=== PATIENT | female | born 1990 | race Caucasian/White ===

== ENCOUNTER → 2019-06-24 15:36 | Outpatient (CLI) | payer BC, SELFPAY ==
[2019-06-24 14:23] VITALS: BMI 23.0
[2019-06-24 16:01] LABS: Absolute Lymphocyte Count 1.43 X10^3/uL (0.83-4.51); Absolute Neutrophil Count 5.7 X10^3/uL (2.0-7.7); Basophil# 0.01 X10^3/uL; Basophil% 0.1 % (0-1); Eosinophil# 0.07 X10^3/uL; Eosinophils% 0.9 % (0-5); Hematocrit 36.5 % (37-47); Lymphocyte # 1.43 X10^3/ul (4.0); Lymphocyte % 18.7 % (19-41); Mean Corp Hgb Conc 32.9 g/dL (32-36); Mean Corpuscular Hgb 29.1 pg (27.0-32.0); Mean Corpuscular Volume 88.4 fL (81-99); Mean Platelet Vol. 10.1 fl (6.2-12.0); Monocyte# 0.44 X10^3/uL; Monocyte% 5.8 % (0-10); NRBC Flagged by Analyzer 0 % (0-5); Neutrophil # 5.68 X10^3/uL (2.7-7.7); Neutrophil % 74.2 % (47-70); Platelet Count 206 K/mm3 (150-450); RBC Distribution Width CV 12.9 % (11.6-14.6); RBC Distribution Width SD 41.9 fl (35.1-43.9); Red Blood Count 4.13 M/mm3 (4.2-5.4); White Blood Count 7.7 K/mm3 (4.4-11.0)
[2019-06-24 17:12] LABS: Amphetamine Urine VISTA NEGATIVE (<1000 ng/mL); Barbiturate Urine VISTA NEGATIVE (< 200 ng/mL); Benzodiazepine Urine VISTA NEGATIVE (< 200 ng/mL); Cocaine Urine VISTA NEGATIVE (< 300 ng/mL); Ecstacy Urine VISTA NEGATIVE (< 500 ng/mL); Methadone Urine VISTA NEGATIVE (< 300 ng/mL); PCP Urine VISTA NEGATIVE (< 25 ng/mL); THC Urine VISTA NEGATIVE (< 50 ng/mL); Vista UDS pH Range 6
[2019-06-24 18:42] LABS: Chlamydia Trachomatis by PCR Negative (Negative); Neisserai gonorrhoeae by PCR Negative (Negative); Probe Check PASS; Sample Adequacy Control PASS; Specimen Processing Control PASS
[2019-06-25 09:05] LABS: HIV - WCH Non-Reactive (Nonreactive); Hepatitis B Surface Antigen Non-Reactive (Nonreactive); Hepatitis C Antibody Non-Reactive (Nonreactive); Rubella IgG 457.8 IU/mL
[2019-06-26 02:31] LABS: Rapid Plasmin Reagin (RPR) NONREACTIVE (NONREACTIVE)
[2019-06-27 05:46] LABS: HPV APTIMA, High Risk Negative (Negative)
== END ==
PROVIDERS: Referring Provider Obstetrics & Gynecology; Visit Provider Obstetrics & Gynecology
DX: Z34.90 Encounter for supervision of normal pregnancy, unspecified, unspecified trimester (principal); Z12.4 Encounter for screening for malignant neoplasm of cervix
CPT/HCPCS: 36415; 80307; 85025; 86592; 86703; 86762; 86803; 86850; 86900; 86901; 87086; 87088; 87186; 87340; 87491; 87591; 87624; 88175; G0145

== ENCOUNTER → 2019-06-24 16:44 | Outpatient (CLI) | payer BC, SELFPAY ==
[2019-06-24 14:23] VITALS: BMI 23.0
== END ==
PROVIDERS: Visit Provider Obstetrics & Gynecology
DX: Z12.4 Encounter for screening for malignant neoplasm of cervix (principal); Z34.90 Encounter for supervision of normal pregnancy, unspecified, unspecified trimester
CPT/HCPCS: 80307; 87086; 87491; 87591; 87624; 88175; G0145

== ENCOUNTER → 2019-08-18 | Outpatient (CLI) | payer BC, SELFPAY ==
[2019-08-18 13:29] VITALS: BMI 23.0
== END | disposition home or self-care (01) ==
LOC: LABSPEC 17:04
PROVIDERS: Referring Provider Obstetrics & Gynecology; Visit Provider Obstetrics & Gynecology
DX: O23.40 Unspecified infection of urinary tract in pregnancy, unspecified trimester (principal); Z3A.00 Weeks of gestation of pregnancy not specified
CPT/HCPCS: 87086; 87088; 87186

== ENCOUNTER 2019-09-03 01:08 | Emergency (ER) | payer BC, SELFPAY ==
[2019-08-18 13:29] VITALS: BMI 23.0
[2019-09-03 01:08] VITALS: BP 103/59; PULSE 64; RESP 16; TEMP 36.6; O2SAT 100
[2019-09-03 01:09] VITALS: BP 103/59; PULSE 64; RESP 16; TEMP 36.6; O2SAT 100; BMI 25.5
--- NOTE | 2019-09-03 01:27 | ED.DCSUM_ITS ---
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 Negative for: Vomiting - Diarrhea/Melena/Hematochezia GI Symptom: Negative for: Diarrhea, Melena, Hematochezia Associated Symptoms: Negative for: Dysuria, Frequency, Hematuria, Urgency Narrative: Patient had a kidney stone once before and had sudden onset of pain around 24 hours ago that feels the same. Nausea, no vomiting. No fevers. No urinary symptoms. Had the second urinary tract infection of this current , she is 18 weeks, around 2 weeks ago. She was placed on 1 week of cephalexin 4 times daily, and since finishing that course, she is now on prophylactic cephalexin twice daily. Past Medical History - Allergies and Home Meds Allergies/Adverse Reactions: Allergies No Known Allergies Allergy (Verified 08/18/19 13:06) Primary Care Physician: Care Physician,No Primary [Primary Care Provider] - Doctors: JACKELIN Schneider Past Medical History: None Lives: Spouse/ Significant Other Smoking Status: Former smoker Review of Systems General: Denies: Chills, Fever, Sweats Eyes: Denies: Visual changes - bilaterally, Diplopia ENT: Denies: Rhinorrhea, Sore throat Cardiovascular: Denies: Chest pain, Palpitations Respiratory: Denies: Dyspnea, Cough, Dyspnea on exertion Gastrointestinal: Reports: Abdominal pain, Nausea. Denies: Vomiting, Diarrhea, Melena, Hematochezia Genitourinary: Denies: Dysuria, Hematuria, Frequency Musculoskeletal: Reports: Back pain. Denies: Extremity Pain Skin: Denies: Rash, Wounds Neurological: Denies: Headache, Weakness, Numbness Physical Exam Vital Signs/Narrative: Vital Signs Temp Pulse Resp BP Pulse Ox 09/03/19 01:09 97.9 F 64 16 103/59 L 100 09/03/19 01:08 97.9 F 64 16 103/59 L 100 Inital Vital Signs reviewed: Yes General: Well nourished, Well developed, No Acute Distress Head: Normocephalic, Atraumatic Eyes: Perrl, EOMI ENT: Moist mucous membranes, No rhinorrhea Neck: Supple, Nontender Cardiovascular: Regular rate, Regular rhythm, No murmurs Respiratory: No distress, CTA bilaterally, Chest nontender Abdomen: Soft, Nontender, Normal bowel sounds, - - Distended consistent with gravid uterus to about the umbilicus Back: Nontender, Normal Inspection. Negative for: CVA tenderness Extremities: Nontender, No edema Skin: Normal color, No rash, No Trauma Neurological: Alert, Oriented x3, Cranial nerves II-XII grossly intact, Normal Strength, Normal Sensation, Normal Gait Psychological: Normal affect, Normal Mood Diagnostic/Tx/Re-eval Laboratory Tests 09/03/19 Range/Units 01:26 Urine Color Yellow (Yellow) Urine Clarity Clear (Clear) Urine pH 6.5 (5.0 - 8.0) Ur Specific [place] 1.010 (1.002-1.030) Urine Protein Negative (Negative) mg/dl Urine Glucose (UA) Normal (Normal) mg/dl Urine Ketones Negative (Negative) mg/dl Urine Occult Blood Negative (Negative) /ul Urine Nitrite Negative (Negative) Urine Bilirubin Negative (Negative) mg/dL Urine Urobilinogen Normal (Normal) mg/dl Ur Leukocyte Esterase Negative (Negative) /ul Urine RBC 0 SEEN (0-5) /hpf Urine WBC 0 SEEN (0-5) /hpf Ur Squamous Epith Cells 0-5 SEEN (5-10) /hpf Urine Bacteria 0 SEEN (None Seen) /hpf Urine Mucus 0 SEEN (<or=2+) /hpf - Medical Decision Making At the time of evaluation the patient is doing very well. Therefore I suggested giving her a dose of IM morphine rather than placing an IV since I do not think she is going to need blood work tonight, and also giving her a Percocet orally. They were amenable to this, this was all done at one time, her pain remained well controlled and she did not require any re-dosing of parenteral analgesics. Her urine shows no sign of infection, she is already on prophylactic antibiotics that she is advised to continue, and she is comfortable going home. She is given prescription for Percocet and 1 for Zofran as well, given follow-up instructions for urology to see as needed if it takes her more than a week or 2 and she is still having stone pain, as well as strainers and instructions for use. ED Disposition - Plan for ED Patient: Disposition: Home or Assisted Living Diagnosis: Ureteral colic Instructions: ED Renal Stone w Colic Prescriptions: Oxycodone HCl/Acetaminophen [Percocet 5/325] 1 tab PO Q4H PRN PRN 3 Days #15 tab PRN Reason: Pain Prescription Printed Ondansetron [Zofran Odt] 8 mg PO Q8H PRN PRN #12 tab PRN Reason: Nausea Prescription Printed Referrals: Care Physician,No Primary [Primary Care Provider] - Tish Daly MD [STAFF PHYSICIAN] - (1-2 weeks if still dealing with painful stone)
[2019-09-03 01:33] LABS: Bacteria 0 SEEN /hpf (None Seen); Mucous, Urine 0 SEEN /hpf (<or=2+); Red Blood Cells-Urine 0 SEEN /hpf (0-5); White Blood Cells 0 SEEN /hpf (0-5)
[2019-09-03 01:34] LABS: Color, Urine Yellow (Yellow); Glucose, Dipstick Normal (Normal); Ketone-Dipstick Negative (Negative); Leukocyte Esterase-Dipstick Negative /ul (Negative); Nitrite-Dipstick Negative (Negative); Occult Blood-Urine Negative /ul (Negative); Protein-Dipstick Negative (Negative); Urine Bilirubin Dipstick Negative (Negative); Urine Clarity Clear (Clear); Urine Urobilinogen Normal (Normal); Urine pH 6.5 (5.0 - 8.0)
[2019-09-03] MEDS: Ondansetron ODT 4 MG Tablet 8 MG PO (01:35)
[2019-09-03] MEDS: Morphine 4 MG/ML Syringe IM (01:35)
[2019-09-03] MEDS: oxyCODONE 5 MG Tablet PO (01:35)
[2019-09-03 01:39] LABS: Squamous Epithelial Cells - UA 0-5 SEEN /hpf (5-10)
[2019-09-03 02:40] VITALS: BP 102/65; PULSE 60; RESP 16; O2SAT 99
== END 2019-09-03 02:49 | disposition home or self-care (01) ==
PROVIDERS: Emergency Provider Emergency Medicine
DX: O26.832 Pregnancy related renal disease, second trimester (principal); N23 Unspecified renal colic; Z3A.00 Weeks of gestation of pregnancy not specified; Z87.891 Personal history of nicotine dependence
CPT/HCPCS: 81001; 96372; 99283

== ENCOUNTER → 2019-09-12 16:21 | Outpatient (CLI) | payer BC, SELFPAY ==
[2019-07-21 12:03] VITALS: BMI 23.0
[2019-09-03 01:09] VITALS: BMI 25.5
--- NOTE | 2019-09-12 16:23 | US_ITS ---
STUDY: SECOND AND THIRD TRIMESTER OBSTETRICAL ULTRASOUND REASON FOR EXAM: Female, 29 years old. Anatomy. LMP: 04/26/2019. TECHNIQUE: Transabdominal TECHNICAL QUALITY: Adequate. PRIOR ULTRASOUND: None. FINDINGS: There is a single intrauterine fetus. The fetus is in a cephalic presentation. There is demonstrated cardiac activity with a heart rate of 149 bpm. There is a normal amniotic fluid volume. The largest amniotic fluid pocket measures 5.1 cm. The placenta is posterior in location and is not low lying. There are Grade 0 placental changes. The cervix measures 3.3 cm in length. The bilateral adnexal regions are normal. BIOMETRY: BPD: 4.88 cm: 20 weeks, 6 days HC: 18.51 cm: 21 weeks, 0 days AC: 14.78 cm: 20 weeks, 1 days FL: 3.19 cm: 20 weeks, 0 days CI: 79 FL/BPD: 65 FL/HC: FL/AC: 22 HC/AC: 1.25 age by current US: 20 weeks, 4 days. ARMANDO by current US: 01/26/2020. Estimated weight: 333 grams, +/- 49 grams, 60 %. Age by LMP: 19 weeks, 6 days. ARMANDO by LMP: 01/31/2020. ANATOMY: Gender: Indeterminant Cranium: Normal lateral ventricles. Normal choroid plexus. Normal cerebellum. Normal cisterna magna. Normal face, nose and lips. Chest: Normal 4-chamber heart. Abdomen/Pelvis: Normal diaphragm. Normal stomach. Normal abdominal wall. Normal cord insertion. Normal 3 vessel cord. Normal kidneys. Normal bladder. Spine: Normal cervical spine. Normal thoracic spine. Normal lumbar spine. Normal sacrum. Extremities: Normal bilateral upper extremities. Normal bilateral lower extremities. US/OB Anatomy Scan IMPRESSION: 1. Live single intrauterine at 20 weeks, 4 days. ARMANDO is 01/26/2020. 2. EFW of 333 g. 3. Adequate amniotic fluid. 4. Posterior grade 1 placenta. 5. VERTEX presentation. 6. No visualized anatomic abnormality. Electronically Signed: Maurisio Hendrickson DO at 19:06 EDT Tel [phone], Service support ,
== END ==
LOC: OPUS 16:23 → US 16:29
PROVIDERS: Referring Provider Obstetrics & Gynecology; Visit Provider Obstetrics & Gynecology
DX: Z34.90 Encounter for supervision of normal pregnancy, unspecified, unspecified trimester (principal)
CPT/HCPCS: 76805

== ENCOUNTER → 2019-10-13 | Outpatient (CLI) | payer BC, SELFPAY ==
[2019-10-13 13:19] VITALS: BMI 25.5
== END | disposition home or self-care (01) ==
LOC: LABSPEC 14:42
PROVIDERS: Referring Provider Obstetrics & Gynecology; Visit Provider Obstetrics & Gynecology
DX: O23.40 Unspecified infection of urinary tract in pregnancy, unspecified trimester (principal); Z3A.00 Weeks of gestation of pregnancy not specified
CPT/HCPCS: 87077; 87086; 87088

== ENCOUNTER → 2019-11-03 11:07 | Outpatient (CLI) | payer BC, SELFPAY ==
[2019-11-03 09:37] VITALS: BMI 25.5
--- NOTE | 2019-11-03 11:04 | US_ITS ---
STUDY: ULTRASOUND BREAST - LEFT REASON FOR EXAM: Female, 29 years old. Palpable lump left breast. The patient is 27 weeks . TECHNIQUE: Axial and longitudinal images of the LEFT breast were performed with a high resolution ultrasound transducer. # OF IMAGES: 30 COMPARISON: None. FINDINGS: LEFT Breast: The palpable abnormality corresponds to a 2.6 cm x 3.5 cm x 1.9 cm complex solid nodule with cystic spaces within it. A biopsy is recommended. US/Breast Limited Unilateral IMPRESSION: The palpable abnormality corresponds to a 2.6 cm x 3.5 LIU by 1.9 cm complex solid and cystic nodule. A biopsy is recommended. ASSESSMENT CATEGORY: BIRADS Category 4: Suspicious - Biopsy Should Be Considered. A letter regarding these results will be sent to the patient by the facility within 30 days. Electronically Signed: Joel Cordova, at 14:52 EDT , Service support ,
== END ==
PROVIDERS: Referring Provider Obstetrics & Gynecology; Visit Provider Obstetrics & Gynecology
DX: N63.20 Unspecified lump in the left breast, unspecified quadrant (principal)
CPT/HCPCS: 76642

== ENCOUNTER → 2019-11-04 | Outpatient (CLI) | payer BC, SELFPAY ==
[2019-11-04 12:30] VITALS: BMI 25.5
--- NOTE | 2019-11-04 12:45 | BRBX_PTH ---
PATIENT: JEFRY OLEARY LOC: [facility] U#:[id number] AGE/SX: 29/F ROOM: RE11/04/[address]: Dr. Jj Ventura MD : 1990 BED: DIS: 11/04/2019 SPEC #: [id number] RECD: 11/04/19 12:50 STATUS: ALIZE NANCY #: [id number] LESTER: 11/04/19 12:[address]: Jj Ventura DEPT: SURGICAL PATHOLOGY RECD BY: Vince Ji ENTERED: 11/04/19 13:38 SP TYPE: BREAST BX OTHR DR: No Primary Care Phys Tissues: Left breast, NOS Procedures: Surgery Specimen Level IV HEADER OPERATION: Left breast biopsy PRE-OP DIAGNOSIS: Left breast mass TISSUE SUBMITTED: Left breast tissue MICROSCOPIC DIAGNOSIS Left breast, core biopsy: Consistent with lactating adenoma. AM:chioma 11/05/19 COMMENT Case has been reviewed in consultation with Dr. Small who concurs with the above diagnosis. IDC:SJ MICROSCOPIC DESCRIPTION Slides are reviewed. GROSS DESCRIPTION Received in fixative is one container labeled with the patient name and designated left breast. The specimen consists of multiple elongated fragments of gerardo-yellow fibroadipose tissue that in aggregate measure 2 x 1 x 0.1 cm. The entire specimen is submitted in one cassette. / TISH:chioma 11/04/19 TC:5 CPT: 46350
== END | disposition home or self-care (01) ==
LOC: LABSPEC 13:03
PROVIDERS: Referring Provider Surgery; Visit Provider Surgery
DX: N63.20 Unspecified lump in the left breast, unspecified quadrant (principal)
CPT/HCPCS: 88305

== ENCOUNTER → 2019-11-10 10:41 | Outpatient (CLI) | payer BC, SELFPAY ==
[2019-11-04 12:30] VITALS: BMI 25.5
[2019-11-10 11:06] LABS: Absolute Lymphocyte Count 1.78 X10^3/uL (0.83-4.51); Basophil# 0.02 X10^3/uL; Basophil% 0.2 % (0-1); Eosinophil# 0.12 X10^3/uL; Eosinophils% 1.4 % (0-5); Hematocrit 29.7 % (37-47); Hemoglobin 9.4 g/dL (12.0-15.0); Lymphocyte # 1.78 X10^3/ul (4.0); Mean Corp Hgb Conc 31.6 g/dL (32-36); Mean Corpuscular Hgb 29.8 pg (27.0-32.0); Mean Corpuscular Volume 94.3 fL (81-99); Mean Platelet Vol. 10.2 fl (6.2-12.0); Monocyte# 0.54 X10^3/uL; Monocyte% 6.4 % (0-10); NRBC Flagged by Analyzer 0 % (0-5); Neutrophil # 5.96 X10^3/uL (2.7-7.7); Neutrophil % 70.5 % (47-70); Platelet Count 228 K/mm3 (150-450); RBC Distribution Width CV 13.8 % (11.6-14.6); RBC Distribution Width SD 46.6 fl (35.1-43.9); Red Blood Count 3.15 M/mm3 (4.2-5.4); White Blood Count 8.5 K/mm3 (4.4-11.0)
[2019-11-10 11:16] LABS: Glucose Challenge Gest 1H 50g 71 mg/dL (70-140)
== END ==
PROVIDERS: Referring Provider Obstetrics & Gynecology; Visit Provider Obstetrics & Gynecology
DX: O23.40 Unspecified infection of urinary tract in pregnancy, unspecified trimester (principal); Z3A.00 Weeks of gestation of pregnancy not specified; Z13.1 Encounter for screening for diabetes mellitus
CPT/HCPCS: 36415; 82950; 85025; 87077; 87086; 87088; 87186

== ENCOUNTER → 2019-11-24 12:57 | Outpatient (CLI) | payer BC, SELFPAY ==
[2019-11-24 08:29] VITALS: BMI 27.6
== END | disposition home or self-care (01) ==
LOC: LABSPEC 12:58
PROVIDERS: Referring Provider Obstetrics & Gynecology; Visit Provider Obstetrics & Gynecology
CPT/HCPCS: 87086

== ENCOUNTER → 2019-12-08 12:13 | Outpatient (CLI) | payer BC, SELFPAY ==
[2019-12-08 11:48] VITALS: BMI 28.5
[2019-12-08 12:42] LABS: Absolute Lymphocyte Count 1.55 X10^3/uL (0.83-4.51); Absolute Neutrophil Count 5.6 X10^3/uL (2.0-7.7); Basophil# 0.02 X10^3/uL; Basophil% 0.3 % (0-1); Eosinophil# 0.11 X10^3/uL; Eosinophils% 1.4 % (0-5); Hemoglobin 9.8 g/dL (12.0-15.0); Lymphocyte # 1.55 X10^3/ul (4.0); Lymphocyte % 19.6 % (19-41); Mean Corp Hgb Conc 31.6 g/dL (32-36); Mean Corpuscular Hgb 29.9 pg (27.0-32.0); Mean Corpuscular Volume 94.5 fL (81-99); Monocyte# 0.57 X10^3/uL; Monocyte% 7.2 % (0-10); NRBC Flagged by Analyzer 0 % (0-5); Neutrophil # 5.62 X10^3/uL (2.7-7.7); Neutrophil % 70.9 % (47-70); Platelet Count 198 K/mm3 (150-450); RBC Distribution Width CV 13.8 % (11.6-14.6); RBC Distribution Width SD 47.4 fl (35.1-43.9); Red Blood Count 3.28 M/mm3 (4.2-5.4); White Blood Count 7.9 K/mm3 (4.4-11.0)
== END ==
PROVIDERS: Referring Provider Obstetrics & Gynecology; Visit Provider Obstetrics & Gynecology
DX: O23.40 Unspecified infection of urinary tract in pregnancy, unspecified trimester (principal); O99.019 Anemia complicating pregnancy, unspecified trimester; D64.9 Anemia, unspecified; Z3A.00 Weeks of gestation of pregnancy not specified
CPT/HCPCS: 36415; 85025; 87086; 87088

== ENCOUNTER → 2019-12-12 17:47 | Outpatient (CLI) | payer BC, SELFPAY ==
[2019-12-08 11:48] VITALS: BMI 28.5
== END ==
PROVIDERS: Referring Provider Obstetrics & Gynecology; Visit Provider Obstetrics & Gynecology
DX: U07.1 COVID-19 (principal)
CPT/HCPCS: 87635; C9803; U0003

== ENCOUNTER → 2020-01-05 14:48 | Outpatient (CLI) | payer BC, SELFPAY ==
[2019-12-08 11:48] VITALS: BMI 28.5
--- NOTE | 2020-01-05 14:59 | US_ITS ---
STUDY: SECOND AND THIRD TRIMESTER OBSTETRICAL ULTRASOUND - LIMITED REASON FOR EXAM: Female, 29 years old GROWTH LMP: Unknown. PRIOR ULTRASOUND: None. TECHNIQUE: Transabdominal TECHNICAL QUALITY: Adequate. FINDINGS: There is a single intrauterine fetus. The fetus is in a cephalic presentation. There is demonstrated cardiac activity with a heart rate of 125 bpm. There is a normal amniotic fluid volume. The largest amniotic fluid pocket measures 7.3 cm. The amniotic fluid index (MARITZA) is 18.5 cm. The placenta is fundal in location. There are Grade 3 placental changes. The cervix measures 3.6 cm cm in length. BIOMETRY: BPD: 9.0 cm: 36 weeks, 4 days HC: 32.4 cm: 36 weeks, 5 days AC: 33.0 cm: 37 weeks, 0 days FL: 7.0 cm: 36 weeks, 1 days age by current US: 36 weeks, 5 days. ARMANDO by current US: January 28, 2020. Estimated weight: 2995 grams, +/- 437 grams US/OB Limited With Biometrics IMPRESSION: A single intrauterine gestation 36 weeks 5 days with estimated due date January 28, 2020. Estimated weight 2995 g. Electronically Signed: Kodak Pickens MD at 16:10 EST , Service support ,
== END ==
PROVIDERS: Referring Provider Obstetrics & Gynecology; Visit Provider Obstetrics & Gynecology
DX: O09.90 Supervision of high risk pregnancy, unspecified, unspecified trimester (principal); O23.40 Unspecified infection of urinary tract in pregnancy, unspecified trimester; O98.513 Other viral diseases complicating pregnancy, third trimester; U07.1 COVID-19; Z3A.36 36 weeks gestation of pregnancy
CPT/HCPCS: 76816; 87081; 87086; 87088

== ENCOUNTER → 2020-01-19 | Outpatient (CLI) | payer BC, SELFPAY ==
[2020-01-19 11:45] VITALS: BMI 29.8
== END | disposition home or self-care (01) ==
LOC: LABSPEC 12:36
PROVIDERS: Referring Provider Obstetrics & Gynecology; Visit Provider Obstetrics & Gynecology
DX: Z34.90 Encounter for supervision of normal pregnancy, unspecified, unspecified trimester (principal)
CPT/HCPCS: 87086; 87088

== ENCOUNTER → 2020-01-26 10:05 | Outpatient (CLI) | payer BC, SELFPAY ==
[2020-01-12 11:42] VITALS: BMI 29.5
[2020-01-19 11:45] VITALS: BMI 29.8
== END ==
PROVIDERS: Referring Provider Obstetrics & Gynecology; Visit Provider Obstetrics & Gynecology
DX: Z34.90 Encounter for supervision of normal pregnancy, unspecified, unspecified trimester (principal)
CPT/HCPCS: 87635; C9803; U0003

== ENCOUNTER 2020-02-07 18:50 | Inpatient (IN) | payer BC, SELFPAY ==
[2020-02-02 11:38] VITALS: BMI 30.5
[2020-02-07 19:20] VITALS: BMI 30.9
[2020-02-07 19:26] VITALS: PULSE 77; O2SAT 98; O2SAT 99
[2020-02-07 19:27] VITALS: BP 116/73; PULSE 73
[2020-02-07] MEDS: Lactated Ringers 1,000 ML 50 ML IV (19:40)
--- NOTE | 2020-02-07 19:53 | HP.PCM_ITS ---
- Problem List (1) 35 weeks gestation of Status: Acute Comment: electronic covid test ordered 12/31/2019 (scheduled for 01/26/20 @ 0955) (2) Anemia affecting Status: Acute Comment: iron added CBC in 4 weeks (3) Breast lump Status: Acute Comment: BENIGN. Lump noted in left lower outer quadrant of breast. 2cm in size and mobile. Ultrasound BIRADS 4. 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 anatomy us nl at [facility]. (7) Recurrent UTI (urinary tract infection) complicating Status: Acute Qualifiers: Comment: e.coli. keflex BID prophylaxis, repeat culture done 11/23 (8) Supervision of normal Status: Acute Comment: PRR ARMANDO 01/31/20 girl Cheyenne Ritchie History and Physical Date of Admission: 02/07/20 Intake Vital Signs 02/02/20 Height 5 ft 4 in 02/02/20 Weight: 178 lb 02/02/20 BMI 30.5 02/02/20 BP 122/76 H Intake Visit Reasons: 40WK OB Chief Complaint: est ob, IOL packet Residential Collections Required: No Is patient in pain?: No Allergies No Known Allergies Allergy (Verified 02/02/20 11:38) Medications Pnv No.95/Ferrous Fum/Folic AC [ Caplet] 1 tab PO DAILY 09/03/19 [History Confirmed 02/02/20] ferrous sulfate 325 mg (65 mg iron) tablet,delayed release 325 mg PO DAILY 11/24/19 [History Confirmed 02/02/20] aspirin 81 mg chewable tablet 81 mg PO DAILY 01/19/20 [History Confirmed 02/02/20] famotidine 20 mg tablet 20 mg PO DAILY 01/19/20 [History Confirmed 02/02/20] Last Menstral Period: 04/26/19 Zika: Zika virus screening: Negative : No PFSH PFS Medical History Erythema nodosum (Acute) Recurrent UTI (Acute) Family History Grandfather Leukemia Grandmother Hypertension Social History (Updated 02/02/20 @ 12:[address] Margaret Evans MD) Smoking Status: Former smoker alcohol intake: never substance use type: does not use caffeine: Yes what type of physical activity do you participate in: none seatbelt use: always do you feel safe at home: Yes additional social history: - [place]itch[place] Patient works at [employer] Pregancy History 1 Elective abortions Hx Para Spontaneous abortions Hx # Term Pregnancies Ectopic pregnancies Hx # Pregnancies Multiple births # of living children HPI 40WK OB : Details: JEFRY OLEARY is a 29 year old who presents for routine OB visit. OB Visit ARMANDO Calculator Estimated Delivery Date Method Current WG Current Estimate 01/31/20 LMP (Certain) 40w 2d Other Estimates 01/28/20 Ultrasound #1 40w 5d Expected Delivery Route/Plan by 41 weeks Labor Preferences- CB/BF classes: declines labor support person: [facility] labor intervention preferences: open to all interventions pain management options preferred: epidural cut cord/dad catch: no - may change mind in the moment : yes PP control planned: undecided discussed possible routes of delivery and associated risks: discussed possible delivery modalities and possible indications for each including R/B/A of , FAVD, VAVD, and CS. questions answered. special requests: none Specific Issue/Plans flu vaccine: declines tdap vaccine: declined rhogam: na LARC form signed: declined movement and labor precautions reviewed. Problem list reviewed and updated with the most current plan of care details and appropriate orders placed. Relevant counseling for the gestational age provided. Continue routine care and follow up unless otherwise noted in visit notes/problem list details Initial Weight: 134 lb Date EGA Weight BP Urine Prot Glucose FHR FuHt Pres Dilation Effaced St Visit Note 07/21/19 12w 2d 134 lb (+0 oz) 112/70 Negative Negative 160 SM- no vb cramping 08/18/19 16w 2d 140 lb 6 oz (+6 lb 6 oz) 108/62 Negative 1000 g/dL 150 SM- no vb cramping. has us scheduled 09/15/19 20w 2d 145 lb (+11 lb) 124/76 Negative Negative 145 20 SM- no vb lof cramping, passed kidney stone last week doing well. 10/13/19 24w 2d 154 lb (+20 lb) 120/72 Negative Negative 145 24 SM- no vb lof good fm no regular ctx 11/03/19 27w 2d 161 lb 4 oz (+27 lb 4 oz) 100/66 Negative Negative 145 28 GP - Problem visit breast lump. 2cm mobile lump in left breast. US ordered. GP - Problem visit breast lump. 2cm mobile lump in left breast. US ordered. LARC form signed today. 11/10/19 28w 2d 161 lb (+27 lb) 108/70 155 28 GP - No contractions, LOF, VB, DFM. S/P bx by Dr. Ventura. 11/24/19 30w 2d 164 lb (+30 lb) 100/66 Negative Negative 139 39 SM- no vb lof good fm no regular ctx. repeat urine culture today- not on any antibiotics currently 12/08/19 32w 2d 166 lb (+32 lb) 102/60 130 32 GP - no LOF, VB, DFM, ctx. Discussed routes of delivery. Repeat CBC ordered for anemia. 01/05/20 36w 2d 173 lb (+39 lb) 110/72 140 35 Cephalic 0.5 SM- no vb lof good fm no regular ctx gbs done 01/12/20 37w 2d 172 lb 4 oz (+38 lb 4 oz) Negative Negative 130 37 Cephalic 0.5 GP - no LOF, VB, DFM, reg ctx. GBS negative. Discussed COVID testing. Plans to take off of work after due date. 01/19/20 38w 2d 174 lb (+40 lb) 100/78 130 38 Cephalic 0.5 SM- no vb lof good fm no regualr ctx 01/26/20 39w 2d 177 lb (+43 lb) 134/70 Negative Negative 130 39 Cephalic 1 20 -3 Sm- no vb lof good fm no regular ctx 02/02/20 40w 2d 178 lb (+44 lb) 122/76 Negative Negative 130 40 Cephalic 1 40 -3 GP - no LOF, VB, DFM, reg ctx. Scheduled IOL for 02/06 at 1900. ACOG First Trimester First Trimester: Desire for , Alcohol, Tobacco Cessation, Illicit/Recreational Drug/Substance Use, Intimate Partner Violence, Barriers to care, Unstable Housing, Communication Barriers, Environmental/Work Hazards, Anticipated Course of Care, Toxoplasmosis Precations, Use of Any medications, Sexual activity, Exercise, Dental Care, Sauna/Hot tub use, Seat Belt use, Childbirth classes/Hospital facilities, , Travel, Indications for US and Screening for Aneuploidy Diagnostics Diagnostics Diagnostics Hgb 9.8 g/dL (12.0-15.0) L 12/08/19 Hct 31.0 % (37-47) L 12/08/19 Details: HIV: Urine Culture: Sequential Screen: NIPT Screen: ROS Const Reports system reviewed and no additional complaints, except as docu Eyes Reports system reviewed and no additional complaints, except as docu ENT Reports system reviewed and no additional complaints, except as docu Card Reports system reviewed and no additional complaints, except as docu Resp Reports system reviewed and no additional complaints, except as docu GI Reports system reviewed and no additional complaints, except as docu Reports system reviewed and no additional complaints, except as docu, Denies abnormal vaginal bleeding, Denies painful urination, Denies pelvic pain, Denies vaginal discharge, Denies vaginal odor, Denies vaginal itching Musc Reports system reviewed and no additional complaints, except as docu Skin/Breast Reports system reviewed and no additional complaints, except as docu Neuro Yes system reviewed and no additional complaints, except as docu Psych Reports system reviewed and no additional complaints, except as docu Exam Const General: cooperative, healthy appearing, comfortable, no acute distress, well developed, well groomed Nutritional Appearance: average body habitus, well nourished Orientation: alert, awake, oriented x3 HENHI Head: normal to inspection, normocephalic, atraumatic Eyes Pupils: PERRL, accommodation normal Resp Effort & Inspection: normal respiratory effort, able to speak in complete sentences, symmetric chest movement Cardio Rate: regular rate GI Palpation: soft, no guarding, no masses, nontender Skin General: no rashes or lesions noted, elasticity normal, turgor normal Neuro General: alert, awake, oriented x3 Cranial Nerves: CN's II-XI intact bilaterally, sense of smell intact, PERRL, accommodation normal, EOM intact bilaterally Speech: speech normal Gait: normal gait Psych Appearance: grossly normal, well kempt Mental Status: mental status grossly normal Mood: congruent mood Affect: normal affect Speech and Movement: speech and movement normal Attitude: cooperative Thought Process: normal Thought Content: normal Judgment: judgment good Results POC Urinalysis 2 Dip (Clinic) Office Urine Glucose Negative Last Edit by Jennifer Marquez on 02/02/20 11:4 3 Office Urine Protein Negative Last Edit by Jennifer Marquez on 02/02/20 11:4 3 Assessment & Plan Problems 1. Lab test negative for COVID-19 virus Z03.818 01/26/20 2. 35 weeks gestation of Z3A.35 electronic covid test ordered 12/31/2019 (scheduled for 01/26/20 @ 0955) 3. Lab test positive for detection of COVID-19 virus U07.1 Start baby ASA; growth scan on 01/04- NL 4. Anemia affecting O99.019 iron added CBC in 4 weeks 5. Breast lump N63.0 BENIGN. Lump noted in left lower outer quadrant of breast. 2cm in size and mobile. Ultrasound BIRADS 4. 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 6. Recurrent UTI (urinary tract infection) complicating O23.40 e.coli. keflex BID prophylaxis, repeat culture done 11/23 7. Z34.90 declined genetic, carrier, and ntd screening. anatomy us nl at [facility]. 8. Supervision of normal Z34.90 PRR ARMANDO 01/31/20 girl Cheyenne Ritchie UPDATE- I have seen the patient and performed any clinically relevant updates to the history and physical exam. Margaret Evans MD
[2020-02-07 20:04] LABS: Absolute Lymphocyte Count 1.56 X10^3/uL (0.83-4.51); Absolute Neutrophil Count 5.6 X10^3/uL (2.0-7.7); Basophil# 0.02 X10^3/uL; Basophil% 0.3 % (0-1); Eosinophil# 0.05 X10^3/uL; Eosinophils% 0.6 % (0-5); Hemoglobin 9.7 g/dL (12.0-15.0); Lymphocyte # 1.56 X10^3/ul (4.0); Lymphocyte % 19.7 % (19-41); Mean Corp Hgb Conc 32.3 g/dL (32-36); Mean Corpuscular Hgb 29.6 pg (27.0-32.0); Mean Corpuscular Volume 91.5 fL (81-99); Mean Platelet Vol. 10.6 fl (6.2-12.0); Monocyte# 0.68 X10^3/uL; Monocyte% 8.6 % (0-10); NRBC Flagged by Analyzer 0 % (0-5); Neutrophil # 5.56 X10^3/uL (2.7-7.7); Neutrophil % 70.4 % (47-70); Platelet Count 204 K/mm3 (150-450); RBC Distribution Width CV 13.9 % (11.6-14.6); RBC Distribution Width SD 46.2 fl (35.1-43.9); Red Blood Count 3.28 M/mm3 (4.2-5.4); White Blood Count 7.9 K/mm3 (4.4-11.0)
[2020-02-07 20:36] VITALS: PULSE 64; TEMP 36.8; O2SAT 97
[2020-02-07 20:38] VITALS: BP 115/72; PULSE 67
[2020-02-07] MEDS: 0.9% Normal Saline Single 100 ML IV.SOLN. INTRA-UTER (20:40)
[2020-02-07] MEDS: miSOPROStol 25 MCG TABLET PO (20:44)
[2020-02-08] VITALS (62 sets, daily range): BP systolic 100–131; BP diastolic 56–87; PULSE 62–94; TEMP 36.2–38.2; O2SAT 82–100
[2020-02-08] MEDS: Mag Hydrox/Al Hydrox/Simeth 30 ML UDC PO (01:06)
[2020-02-08] MEDS: miSOPROStol 25 MCG TABLET PO (01:28)
[2020-02-08] MEDS: Oxytocin 30 units/NS 500 ml 30 UNITS/500 ML IV.SOLN IV ×2 (05:35→19:40)
[2020-02-08] MEDS: Lactated Ringers 500 ML 999 ML IV ×2 (09:04→22:30)
[2020-02-08] MEDS: fentaNYL-bupivacaine (epidural) 100 ML BAG EPIDURAL ×3 (10:07→19:37)
[2020-02-08] MEDS: Lactated Ringers 1,000 ML 200 ML IV ×3 (10:11→19:14)
[2020-02-08] MEDS: Famotidine 20 MG Tablet PO (12:00)
[2020-02-08] MEDS: 0.9% Saline Lock 10 ML Syringe IV (18:06)
[2020-02-08] MEDS: Ondansetron 4 MG/2 ML Vial IV (18:06)
[2020-02-08] MEDS: DiphenhydrAMINE 50 MG/ML Syringe 25 MG IV (20:57)
[2020-02-09] VITALS (36 sets, daily range): BP systolic 92–120; BP diastolic 50–88; PULSE 73–99; RESP 10–17; TEMP 36.1–38.2; O2SAT 94–100
[2020-02-09] MEDS: Lactated Ringers 1,000 ML 200 ML IV ×2 (00:54→07:19)
[2020-02-09] MEDS: fentaNYL-bupivacaine (epidural) 100 ML BAG EPIDURAL ×3 (01:10→12:00)
[2020-02-09] MEDS: Lactated Ringers 500 ML 999 ML IV ×2 (06:18→10:35)
--- NOTE | 2020-02-09 07:59 | PCM.PN.BLA ---
Progress Note Patient examined at this time. Found to have made cervical change to 7/80/-1. Still has swelling of anterior lip of cervix. Cervix manually compressed to decrease swelling. Baby feels somewhat asynclitic. Baby remains category 1. Will continue position change. Patient on antibiotics for suspected III, but most recently afebrile. IUPC replaced to see if this improves contraction pattern. Discussed with patient an RN that as long as maternal and status remain reassuring, would allow 6 hours after last time making cervical change before would consider . STROKE Vital Signs/Narrative: Vital Signs Temp Pulse BP Pulse Ox 02/09/20 07:46 99.3 F H 80 109/62 99 02/09/20 06:39 92 100 02/09/20 06:38 100.2 F H 111/65 02/09/20 05:41 100.7 F H 77 113/58 L 100 02/09/20 04:46 73 106/58 L 100 02/09/20 04:21 100.6 F H
[2020-02-09] MEDS: Acetaminophen 500 MG Tablet PO (11:48)
[2020-02-09] MEDS: DiphenhydrAMINE 50 MG/ML Syringe 12.5 MG IV (12:24)
--- NOTE | 2020-02-09 17:19 | PCM.PN.BLA ---
Progress Note Patient has now been 9 cm since 10:50 AM. Cervical swelling is noted to be significantly worse to the point that cervix is now 7 cm dilated due to the degree of swelling. Discussed with patient that given that she has not made cervical change for greater than 6 hours with inadequate contractions, I recommend proceeding with a primary section at this time. The risk, benefits, indications, and alternatives to the procedure were discussed with the patient including bleeding, infection, and visceral or vascular injury. All questions were answered. Patient voices understanding and agrees to proceed. Given that maternal and status remains reassuring at this time, will allow additional time before start of procedure for anesthesia to complete an epidural on a different patient is on the unit. STROKE Vital Signs/Narrative: Vital Signs Temp Pulse Resp BP Pulse Ox 02/09/20 16:38 88 110/73 100 02/09/20 15:32 98.0 F 85 15 120/88 H 98 02/09/20 15:28 98.0 F 85 120/88 H 98 02/09/20 13:57 99.8 F H 90 100/63 98
--- NOTE | 2020-02-09 17:41 | OP.PCM_ITS ---
Problem List (1) 35 weeks gestation of Status: Acute Comment: electronic covid test ordered 12/31/2019 (scheduled for 01/26/20 @ 0955) (2) Anemia affecting Status: Acute Comment: iron added CBC in 4 weeks (3) Breast lump Status: Acute Comment: BENIGN. Lump noted in left lower outer quadrant of breast. 2cm in size and mobile. Ultrasound BIRADS 4. 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 anatomy us nl at [facility]. (7) Recurrent UTI (urinary tract infection) complicating Status: Acute Qualifiers: Comment: e.coli. keflex BID prophylaxis, repeat culture done 11/23 (8) Supervision of normal Status: Acute Comment: PRR ARMANDO 01/31/20 girl Cheyenne Ritchie Delivery Classification: BEKA Final ARMANDO: 01/31/20 Gestational age: 41 Weeks and 2 Days correction officer city or county jail: [facility] [facility] Type of Anesthesia:: Epidural Date of Procedure: 02/09/20 Pre-Operative Diagnosis: Term , arrest of dilation, suspected intrapartum intraamniotic infection Post-Operative Diagnosis: Same Indications: Patient is a 29-year-old G1, P0 at 41 weeks gestation who was admitted for induction of labor for late term. She was initially induced with Lundberg bulb and Cytotec followed by Pitocin. Her membranes were ruptured at 10:30 AM on 02/07. Once her membranes were ruptured she was 5 cm for approximately 20 hours before she made cervical change to 7 cm dilation. Cervix was noted to be significantly swollen. She did make cervical change to 9 cm dilation at 10:50 AM, but made no further cervical change at this time and her cervix was noted to continue to have significant swelling. The decision was made to proceed with a primary C-se ction for arrest of dilation. The risks, benefits, indications, and alternatives to the procedure were discussed with the patient including bleeding, infection, and visceral or vascular injury. The patient voiced understanding and agreed to proceed. Indications for : Sec. Arrest of Dilitation, Suspected chorioamnionitis (Suspected Triple I) Description of Procedure: The patient is a G1, P0 at 41 weeks gestation presented for primary for arrest of dilation. Spinal anesthesia was placed without difficulty. Lundberg catheter was placed. The patient was placed in the dorsal supine position with leftward tilt. Patient was prepped and draped in the normal sterile fashion. Pfannenstiel skin incision was made with the scalpel and carried through to the underlying layer of fascia with the scalpel. Fascia was nicked in the midline and the incision extended laterally. The rectus bellies were dissected off superiorly and inferiorly with out complication both sharply and bluntly. The peritoneum was entered digitally. The incision was stretched and a low transverse uterine incision was made with the scalpel. The head was noted to be occiput posterior and asynclitic. The infant's head was delivered atraumatically followed by the anterior and posterior shoulders without complication the rest of the infant delivered. The cord was clamped and cut and the infant was handed off to awaiting nurse. The placenta was delivered spontaneously immediately following and was noted to be intact and have a three- vessel cord. The uterus was exteriorized cleared of all clots and debris. A large extension was noted on the left side. The extension was closed in a running locked fashion with #1 monocryl and the hysterotomy was closed in a double layer closure using #1 Monocryl. Hemostasis was obtained with 0-vicryl suture. The ovaries and fallopian tubes were noted to be within normal limits. The uterus was returned to the maternal abdomen and gutters were cleared of all clots and debris. The peritoneum was closed with 3-0 Monocryl in a running fashion. Gloves were changed prior to fascial closure. Fascia was closed with 0 PDS in a running fashion. Subcutaneous tissue was copiously irrigated and the skin was closed with 3-0 Monocryl in a subcuticular fashion. Mepilex dressing was applied without complication. Patient was taken to recovery in stable condition. Based on the clinical information obtained during this encounter, combined with her history I feel that she could be a candidate for a vaginal delivery in the future if desired. Amniotic Membrane Rupture Type: Artificial Amniotic Fluid Description: Moderate meconium Placenta Disposition: Sent to Pathology Drain: Lundberg to straight drain Cord Vessel Description: 3 Vessels Infant Gender: Female Antibiotic Given: - - Clindamycin and ampicillin Pt instructed on risks of surgery: Bleeding, Anesthesia Risks, Infection, Injury to surrounding structure(s) including bowel and bladder Complications: None - Admit VTE Documentation VTE Present on Admission: No VTE Mechan Device Prophylaxis: SCD's VTE Pharm Prophylaxis ordered?: Yes Multi Select Codes - Urinary/Genital Urinary/Genital CPT Codes: [address] [facility]
--- NOTE | 2020-02-09 18:57 | DCINST_ITS ---
Discharge Diet: No Restrictions Discharge Activity: May Not Drive - for 2 weeks or while taking narcotic pain meds., May Shower, May Take a Tub Bath - in 7 days. May resume sexual activity in: 4-6 weeks Lifting Restrictions: 20 pounds Additional Activity Instructions:: Nothing in the vagina for 4-6 weeks. You may return to work/school in 6 weeks. Call your doctor if your incision/area has: Continuous Slow Oozing, Sudden Increased Bleeding, Increased Pain/ Swelling, Increased Redness, Foul Smelling Discharge Call your doctor if you observe: Fever of 101 or Higher Suture Line Care: Avoid Pulling/Pushing, Avoid Pinching/Bending Additional Instructions: If you experience any of the following, contact your healthcare provider. * Bleeding that soaks a pad every hour for 2 hours * Fever 100.4 or higher * Unrelieved incision or abdominal pain * Swelling, redness, discharge or bleeding from your incision or episiotomy site * Your incision begins to separate * Problems urinating (including inability to urinate or burning while urinating). * Visual changes * Severe headache * Flu-like symptoms * Pain or redness in one of both of your breasts * Pain, warmth, tenderness or swelling in your legs, especially the calf area * Frequent nausea and vomiting * Symptoms of depression or anxiety If you experience any of the following, call 911 or go to the nearest Emergency Room. * Chest pain * Problems breathing * Seizure activity * Partial or complete paralysis of a body part, slurred speech, weakness or drooping of the face, or a sudden inability to walk or hold your balance Allergies/Adverse Reactions: Allergies No Known Allergies Allergy (Verified 02/02/20 11:38) Medications to take at Discharge Pnv No.95/Ferrous Fum/Folic AC [ Caplet] 1 tab PO DAILY 09/03/19 ferrous sulfate 325 mg (65 mg iron) tablet,delayed release 325 mg PO DAILY 11/24/19 aspirin 81 mg chewable tablet 81 mg PO DAILY 01/19/20 famotidine 20 mg tablet 20 mg PO DAILY 01/19/20 Follow-Up: Call to make an appointment with your doctor for an incision check in 1-2 weeks. You will also need a 6 week post- follow up appointment. Test results from this visit will be discussed in further detail at your follow- up appointment, if applicable. Primary Care Physician: Care Physician,No Primary [Primary Care Provider] -
[2020-02-09] MEDS: Oxytocin 30 units/NS 500 ml 30 UNITS/500 ML IV.SOLN 167 UNITS IV (19:05)
[2020-02-09] MEDS: Acetaminophen 500 MG Tablet 1000 MG PO (22:12)
[2020-02-09] MEDS: Lactated Ringers 1,000 ML 100 ML IV (22:12)
[2020-02-10] VITALS (7 sets, daily range): BP systolic 92–109; BP diastolic 50–76; PULSE 74–95; RESP 14–20; TEMP 36.1–36.6; O2SAT 96–100
[2020-02-10] MEDS: Ketorolac 30 MG/ML Syringe IV ×4 (01:21→19:01)
[2020-02-10] MEDS: 0.9% Saline Lock 10 ML Syringe IV ×4 (01:22→19:02)
[2020-02-10] MEDS: Acetaminophen 500 MG Tablet 1000 MG PO ×4 (03:36→22:18)
[2020-02-10] MEDS: Enoxaparin 40 MG/0.4 ML Syringe SC (06:44)
[2020-02-10 06:50] LABS: Hematocrit 25.3 % (37-47); Hemoglobin 8.2 g/dL (12.0-15.0); Mean Corp Hgb Conc 32.4 g/dL (32-36); Mean Corpuscular Hgb 29.7 pg (27.0-32.0); Mean Corpuscular Volume 91.7 fL (81-99); Mean Platelet Vol. 10.1 fl (6.2-12.0); Platelet Count 164 K/mm3 (150-450); RBC Distribution Width SD 45.8 fl (35.1-43.9); Red Blood Count 2.76 M/mm3 (4.2-5.4)
--- NOTE | 2020-02-10 08:44 | PN.OBGYN_ITS ---
Patient Problems: Active and Suspected Problems (Last Reviewed 02/02/20 @ 11:38 by Jennifer Marquez) Lab test negative for COVID-19 virus (Acute) 01/26/20 35 weeks gestation of (Acute) electronic covid test ordered 12/31/2019 (scheduled for 01/26/20 @ 0955) Lab test positive for detection of COVID-19 virus (Acute) Start baby ASA; growth scan on 01/04- NL Anemia affecting (Acute) iron added CBC in 4 weeks Breast lump (Acute) BENIGN. Lump noted in left lower outer quadrant of breast. 2cm in size and mobile. Ultrasound BIRADS 4. 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 keflex BID prophylaxis, repeat culture done 11/23 (Acute) declined genetic, carrier, and ntd screening. anatomy [facility]l at [facility]. Supervision of normal (Acute) PRR ARMANDO 01/31/20 girl Cheyenne Ritchie Subjective: Patient doing well without complaints. Tolerating PO. Ambulating and voiding without difficulty. Denies chest pain, shortness of breath, calf pain/swelling, fevers, chills, lightheadedness.Concern for chorio-afebrile since delivery. Baby Cheyenne at [facility] for breathing issues, now doing well, room air. - Physical Exam Vitals/I&O's: Vital Signs Temp Pulse Resp BP Pulse Ox 97 F L 81 16 103/65 96 02/10/20 03:40 02/10/20 05:45 02/10/20 05:45 02/10/20 03:40 02/10/20 05:45 Oxygen Delivery Method Room Air Weight: 180 lb 1.883 oz Body Mass Index (BMI) 30.9 Intake and Output for Last 24 Hours 02/08/20 02/09/20 02/10/20 23:59 23:59 23:59 Intake Total 4955.86 / 4955.86 6144.05 / 6144.05 622.67 / 622.67 Output Total 1150 / 1150 1100 / 1100 1200 / 1200 Balance 3805.86 / 3805.86 5044.05 / 5044.05 -577.33 / -577.33 General: Alert, Oriented x3, Cooperative Abdomen: Soft, Non-Distended, - - FF below U. Dressing dry and intact. Minimal tenderness Laboratory Results 02/10/20 06:40: WBC 14.0 H, RBC 2.76 L, Hgb 8.2 L, Hct 25.3 L, MCV 91.7, MCH 29.7, MCHC 32.4, RDW Std Deviation 45.8 H, RDW Coeff of Amos 14.0, Plt Count 164, MPV 10.1 Current Medications Acetaminophen (Acetaminophen 500 Mg Tablet) 1,000 mg PO Q6H [facility] Last Admin: 02/10/20 03:36 Dose: 1,000 mg Documented by: Bisacodyl (Bisacodyl 10 Mg Suppository) 10 mg RECTAL UD PRN PRN Reason: If no BM Diphenhydramine HCl (Diphenhydramine 25 Mg Capsule) 25 mg PO Q6H PRN PRN PRN Reason: ITCHING Stop: 02/10/20 19:24 Enoxaparin Sodium (Enoxaparin 40 Mg/0.4 Ml Syringe) 40 mg SC DAILY [facility] Last Admin: 02/10/20 06:44 Dose: 40 mg Documented by: Ephedrine Sulfate (Ephedrine Sulfate 50 Mg/Ml Ampul) 10 mg IV Q10M PRN PRN Reason: hypotension Ephedrine Sulfate (Ephedrine Sulfate 50 Mg/Ml Ampul) 10 mg IM Q30M PRN PRN Reason: hypotension Hydrocortisone (Hydrocortisone 2.5% Crm) 1 applic TOPICAL TID PRN PRN; Protocol PRN Reason: Discomfort Ketorolac Tromethamine (Ketorolac 30 Mg/Ml Syringe) 30 mg IV Q6H [facility] Stop: 02/10/20 19:01 Last Admin: 02/10/20 06:43 Dose: 30 mg Documented by: Methylergonovine Maleate (Methylergonovine 0.2 Mg/Ml Ampul) 0.2 mg IM X1 PRN PRN Reason: Uterine Atony Nalbuphine HCl (Nalbuphine 10 Mg/Ml Ampul) 5 mg IV Q3H PRN PRN PRN Reason: ITCHING Naloxone HCl (Naloxone 0.4 Mg/Ml Syringe) 0.02 mg IV Q1M PRN PRN Reason: RR <10 and pt unresponsive Naproxen (Naproxen 250 Mg Tablet) 500 mg PO Q8H SIL Ondansetron HCl (Ondansetron 4 Mg/2 Ml Vial) 4 mg IV Q4H PRN PRN PRN Reason: Nausea Oxycodone HCl (Oxycodone 5 Mg Tablet) 5 - 10 mg PO Q4H PRN PRN PRN Reason: Pain Score 4-10 Prochlorperazine Edisylate (Prochlorperazine 10 Mg/2 Ml Vial) 10 mg IV Q6H PRN PRN PRN Reason: NAUSEA Senna/Docusate Sodium (Senna/Docusate Sodium 1 Tablet) 0 tablet PO DAILY SIL Simethicone (Simethicone 80 Mg Tablet) 80 mg PO PCHS PRN PRN Reason: Indigestion/stomach pain Sodium Chloride (0.9% Saline Lock 10 Ml Syringe) 5 - 15 ml IV UD PRN PRN Reason: SALINE FLUSH Last Admin: 02/10/20 06:44 Dose: 10 ml Documented by: Medical Necessity - Tobacco Use Smoking Status: Former smoker Assessment/Plan All Active Problems (Last Reviewed 02/02/20 @ 11:38 by Jennifer Marquez) Lab test negative for COVID-19 virus (Acute) 35 weeks gestation of (Acute) Lab test positive for detection of COVID-19 virus (Acute) Anemia affecting (Acute) Breast lump (Acute) Recurrent UTI (urinary tract infection) complicating (Acute) (Acute) Supervision of normal (Acute) s/p LTCS PPD # 1 1. routine post care 2. pumping and support given. 3. rh positive 4. rubella immune 5. Probable discharge tomorrow AM due to infection risks.
[2020-02-10] MEDS: Senna/Docusate Sodium 1 Tablet PO (09:50)
--- NOTE | 2020-02-10 17:50 | CASEMGMT ---
Social Work Assessment Labor and Delivery Unit Date of Referral: 02/10/2020 Time of Referral: 10:44 Referred By: Dr. Margaret Evans Date of Intervention: 02/10/2020 Time of Intervention: 17:50 Reason for Referral: transferred to [facility]. History obtained from: Mother of baby (MOB), Nursing staff, Chart. Household composition: MOB (Leanne Braxton) and Father of baby (Ritchie Braxton) have private home together and plan for to join them when medically stable. Patient's parent/guardian status: MOB and Father of baby (FOB) have been for 1 year. was planned and expected. MOB reports to feel safe with FOB and to have no safety concerns currently. This is first infant for both MOB and FOB. Medical History: MOB with history prior to this infant being born. MOB with at 41 weeks after being induced for two days. born on 02/09/2021 and transferred to [facility] due to respiratory issues. MOB with appropriate care. to follow with Dr. Martell in the community. Educational Status: MOB denies any issues with comprehension or understanding. 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 FOB holds a full-time job. MOB denies any financial concerns. Infant Supplies: MOB reports to have all needed infant supplies in the home including a crib and car seat etc. Childcare/Caregiver(s): MOB plans to be primary caregiver for with family for support ones MOB returns to work. Transportation: Denies any issues. Programs/Agencies Involved: No agency involvement currently. Children Services/Legal Issues: Denies any legal issues. Mental Health History: MOB denies any mental health history or concerns. This social work associate able to broach topic of depression with MOB and facilitated conversation about signs and symptoms. MOB reports to have family/FOB for support as needed and believes that MOB would reach out for help if needed. MOB denies any history of suicidal thoughts, plans, intents. Substance Use History: MOB denies any substance abuse/use. Maternal and Infant Drug Screens: No tox screens obtained. PHQ9: Did not trigger. Family/Social Stressors: Infant transferred to [facility]. MOB with appropriate affect and emotional regulation. Support Systems: MOB reports to have needed supports in the home and community. Depression and Anxiety/Shaken Baby/Safe Sleeping: This social work associate provided MOB with resources on Depression and Anxiety, Shaken Baby Help Me Grow and Safe Sleeping along with [facility] Community Resources. MOB and responding appropriately to safe sleeping and shaken baby prompts. ASSESSMENT: This social work associate met with MOB and MOB?s mother in room. Introduced self and social work associate role. MOB provided verbal permission for this social work associate to speak openly with MOB?s mother present in the room. MOB presenting with a positive outlook. MOB reports to be breast pumping and is looking forward to being able to discharge to home tomorrow to be able to go and be with . MOB denies any concerns at discharge. Unable to observe interaction with MOB and due to transfer to [facility]. Support and active listening provided. PLAN: MOB to discharge to the community. No further services indicated. Alicia COOK, GULSHAN-S
[2020-02-11 02:11] VITALS: BP 87/51; PULSE 90; RESP 16; TEMP 36.8
[2020-02-11] MEDS: Naproxen 250 MG Tablet 500 MG PO (03:37)
[2020-02-11] MEDS: Acetaminophen 500 MG Tablet 1000 MG PO (03:37)
[2020-02-11 03:39] VITALS: BP 91/48; PULSE 91
--- NOTE | 2020-02-11 06:02 | NURSING ---
Reviewed and agreed with Saul GAITAN charting.
--- NOTE | 2020-02-11 07:45 | PN.OBGYN_ITS ---
Patient Problems: Active and Suspected Problems (Last Reviewed 02/02/20 @ 11:38 by Jennifer Marquez) Lab test negative for COVID-19 virus (Acute) 01/26/20 35 weeks gestation of (Acute) electronic covid test ordered 12/31/2019 (scheduled for 01/26/20 @ 0955) Lab test positive for detection of COVID-19 virus (Acute) Start baby ASA; growth scan on 01/04- NL Anemia affecting (Acute) iron added CBC in 4 weeks Breast lump (Acute) BENIGN. Lump noted in left lower outer quadrant of breast. 2cm in size and mobile. Ultrasound BIRADS 4. 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 keflex BID prophylaxis, repeat culture done 11/23 (Acute) declined genetic, carrier, and ntd screening. anatomy us nl at [facility]. Supervision of normal (Acute) PRR ARMANDO 01/31/20 girl Cheyenne Ritchie Subjective: Patient doing well without complaints. Tolerating PO. Ambulating and voiding without difficulty. Pumping/baby at [facility] and doing welll. Denies chest pain, shortness of breath, calf pain/swelling, fevers, chills, lightheadedness. - Physical Exam Vitals/I&O's: Vital Signs Temp Pulse Resp BP Pulse Ox 98.3 F 91 16 91/48 L 99 02/11/20 02:11 02/11/20 03:39 02/11/20 02:11 02/11/20 03:39 02/10/20 12:10 Oxygen Delivery Method Room Air Weight: 180 lb 1.883 oz Body Mass Index (BMI) 30.9 Intake and Output for Last 24 Hours 02/09/20 02/10/20 02/11/20 23:59 23:59 23:59 Intake Total 6144.05 / 6144.05 622.67 / 622.67 Output Total 1100 / 1100 2500 / 2500 Balance 5044.05 / 5044.05 -1877.33 / -1877.33 General: Alert, Oriented x3 Abdomen: Soft, Non-Distended, - - FF below U. Dressing dry and intact. Appropriately tender Current Medications Acetaminophen (Acetaminophen 500 Mg Tablet) 1,000 mg PO Q6H SIL Last Admin: 02/11/20 03:37 Dose: 1,000 mg Documented by: Bisacodyl (Bisacodyl 10 Mg Suppository) 10 mg RECTAL UD PRN PRN Reason: If no BM Enoxaparin Sodium (Enoxaparin 40 Mg/0.4 Ml Syringe) 40 mg SC DAILY [facility] Last Admin: 02/10/20 06:44 Dose: 40 mg Documented by: Ephedrine Sulfate (Ephedrine Sulfate 50 Mg/Ml Ampul) 10 mg IV Q10M PRN PRN Reason: hypotension Ephedrine Sulfate (Ephedrine Sulfate 50 Mg/Ml Ampul) 10 mg IM Q30M PRN PRN Reason: hypotension Hydrocortisone (Hydrocortisone 2.5% Crm) 1 applic TOPICAL TID PRN PRN; Protocol PRN Reason: Discomfort Methylergonovine Maleate (Methylergonovine 0.2 Mg/Ml Ampul) 0.2 mg IM X1 PRN PRN Reason: Uterine Atony Nalbuphine HCl (Nalbuphine 10 Mg/Ml Ampul) 5 mg IV Q3H PRN PRN PRN Reason: ITCHING Naloxone HCl (Naloxone 0.4 Mg/Ml Syringe) 0.02 mg IV Q1M PRN PRN Reason: RR <10 and pt unresponsive Naproxen (Naproxen 250 Mg Tablet) 500 mg PO Q8H [facility] Last Admin: 02/11/20 03:37 Dose: 500 mg Documented by: Ondansetron HCl (Ondansetron 4 Mg/2 Ml Vial) 4 mg IV Q4H PRN PRN PRN Reason: Nausea Oxycodone HCl (Oxycodone 5 Mg Tablet) 5 - 10 mg PO Q4H PRN PRN PRN Reason: Pain Score 4-10 Prochlorperazine Edisylate (Prochlorperazine 10 Mg/2 Ml Vial) 10 mg IV Q6H PRN PRN PRN Reason: NAUSEA Senna/Docusate Sodium (Senna/Docusate Sodium 1 Tablet) 0 tablet PO DAILY [facility] Last Admin: 02/10/20 09:50 Dose: 1 tablet Documented by: Simethicone (Simethicone 80 Mg Tablet) 80 mg PO PCHS PRN PRN Reason: Indigestion/stomach pain Sodium Chloride (0.9% Saline Lock 10 Ml Syringe) 5 - 15 ml IV UD PRN PRN Reason: SALINE FLUSH Last Admin: 02/10/20 19:02 Dose: 10 ml Documented by: Medical Necessity - Tobacco Use Smoking Status: Former smoker Assessment/Plan All Active Problems (Last Reviewed 02/02/20 @ 11:38 by Jennifer Marquez) Lab test negative for COVID-19 virus (Acute) 35 weeks gestation of (Acute) Lab test positive for detection of COVID-19 virus (Acute) Anemia affecting (Acute) Breast lump (Acute) Recurrent UTI (urinary tract infection) complicating (Acute) (Acute) Supervision of normal (Acute) s/p LTCS PPD # 2 1. routine post care 2pumping- support given 3. rh positive 4. rubella immune 5. home today
[2020-02-11 08:00] VITALS: BP 117/78; PULSE 79; RESP 18; TEMP 36.4; O2SAT 100
--- NOTE | 2020-02-16 12:36 | PCM.DC.SUM ---
Discharge Date and Diagnosis - Problem List Patient Problems: Active and Suspected Problems (Last Reviewed 02/02/20 @ 11:38 by Jennifer Marquez) Anemia affecting (Acute) iron added CBC in 4 weeks Breast lump (Acute) BENIGN. Lump noted in left lower outer quadrant of breast. 2cm in size and mobile. Ultrasound BIRADS 4. 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 keflex BID prophylaxis, repeat culture done 11/23 Date of Admission: 02/07/20 Date of Discharge: 02/11/20 - Primary Discharge Diagnosis Acute Problems: Active Problems (Last Reviewed 02/02/20 @ 11:38 by Jennifer Marquez) Anemia affecting (Acute) iron added CBC in 4 weeks Breast lump (Acute) BENIGN. Lump noted in left lower outer quadrant of breast. 2cm in size and mobile. Ultrasound BIRADS 4. 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 keflex BID prophylaxis, repeat culture done 11/23 Failed induction of labor Hospital Course and Treatment Operations: - - section Procedures: None Summary of Care Provided: Patient underwent section with routine recovery due to failed induction of labor and arrest of dilation at 9cm. Labor was complicated by chorioamnionitis. She had return of bowel and bladder function. Ambulating, voiding, and tolerating PO. Stable for discharge home POD#2. Patient Problems: Active and Suspected Problems (Last Reviewed 02/02/20 @ 11:38 by Jnenifer Marquez) Anemia affecting (Acute) iron added CBC in 4 weeks Breast lump (Acute) BENIGN. Lump noted in left lower outer quadrant of breast. 2cm in size and mobile. Ultrasound BIRADS 4. 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 keflex BID prophylaxis, repeat culture done 11/23 - Physical Exam Vitals/I&O's: Vital Signs Temp Pulse Resp BP Pulse Ox 97.5 F L 79 18 117/78 100 02/11/20 08:00 02/11/20 08:00 02/11/20 08:00 02/11/20 08:00 02/11/20 08:00 Oxygen Delivery Method Room Air Weight: 180 lb 1.883 oz Body Mass Index (BMI) 30.9 Discharge Diet: No Restrictions Discharge Activity: May Not Drive - for 2 weeks or while taking narcotic pain meds., May Shower, May Take a Tub Bath - in 7 days. May resume sexual activity in: 4-6 weeks Additional Activity Instructions:: Nothing in the vagina for 4-6 weeks. You may return to work/school in 6 weeks. Call your doctor if your incision/area has: Continuous Slow Oozing, Sudden Increased Bleeding, Increased Pain/ Swelling, Increased Redness, Foul Smelling Discharge Call your doctor if you observe: Fever of 101 or Higher Suture Line Care: Avoid Pulling/Pushing, Avoid Pinching/Bending Home Medications: Medications to take at Discharge Pnv No.95/Ferrous Fum/Folic AC [ Caplet] 1 tab PO DAILY 09/03/19 ferrous sulfate 325 mg (65 mg iron) tablet,delayed release 325 mg PO DAILY 11/24/19 aspirin 81 mg chewable tablet 81 mg PO DAILY 01/19/20 famotidine 20 mg tablet 20 mg PO DAILY 01/19/20 Naproxen [Naprosyn] 250 - 500 mg PO Q8H PRN PRN #30 tab 02/09/20 Following Prescriptions Were Given to Patient: Naproxen [Naprosyn] 250 - 500 mg PO Q8H PRN PRN #30 tab PRN Reason: MILD PAIN Transmission Status: Received by [facility] Primary Care Physician: Care Physician,No Primary [Primary Care Provider] - Medical Necessity - Tobacco Use Smoking Status: Former smoker Meaningful Use Info Meaningful Use Diagnoses (Choose all that apply): None applicable
== END 2020-02-11 09:45 | disposition home or self-care (01) | DRG 786 ==
PROVIDERS: Admitting Provider Obstetrics & Gynecology; Visit Provider Obstetrics & Gynecology
DX: O62.0 Primary inadequate contractions (principal); O41.1230 Chorioamnionitis, third trimester, not applicable or unspecified; O23.43 Unspecified infection of urinary tract in pregnancy, third trimester; B96.20 Unspecified Escherichia coli [E. coli] as the cause of diseases classified elsewhere; O61.0 Failed medical induction of labor; O48.0 Post-term pregnancy; O99.02 Anemia complicating childbirth; D64.9 Anemia, unspecified; O92.79 Other disorders of lactation; O77.0 Labor and delivery complicated by meconium in amniotic fluid; Z3A.41 41 weeks gestation of pregnancy; Z37.0 Single live birth; Z86.19 Personal history of other infectious and parasitic diseases; Z87.440 Personal history of urinary (tract) infections; Z87.891 Personal history of nicotine dependence; Z28.21 Immunization not carried out because of patient refusal
CPT/HCPCS: 59025; 59050; 85025; 85027; 86850; 86900; 86901; 99218; J7120; A4216; G0378; J2405

== ENCOUNTER → 2020-09-21 | Outpatient (CLI) | payer BC, SELFPAY ==
[2020-09-21 15:40] VITALS: BMI 30.9
== END | disposition home or self-care (01) ==
LOC: LABSPEC 16:12
PROVIDERS: Referring Provider Nurse Practitioner Women's Health; Visit Provider Nurse Practitioner Women's Health
DX: M54.5 Low back pain (principal)
CPT/HCPCS: 87077; 87086; 87088; 87186

== ENCOUNTER → 2020-10-07 15:46 | Outpatient (CLI) | payer BC, SELFPAY ==
[2020-10-07 16:07] LABS: Absolute Lymphocyte Count 1.82 X10^3/uL (0.83-4.51); Absolute Neutrophil Count 5.8 X10^3/uL (2.0-7.7); Basophil# 0.02 X10^3/uL; Basophil% 0.2 % (0-1); Eosinophil# 0.07 X10^3/uL; Eosinophils% 0.9 % (0-5); Hematocrit 35.5 % (37-47); Hemoglobin 11.4 g/dL (12.0-15.0); Lymphocyte # 1.82 X10^3/ul (0.83-4.51); Lymphocyte % 22.4 % (19-41); Mean Corp Hgb Conc 32.1 g/dL (32-36); Mean Corpuscular Hgb 28.4 pg (27.0-32.0); Mean Corpuscular Volume 88.3 fL (81-99); Mean Platelet Vol. 10.3 fl (6.2-12.0); Monocyte# 0.43 X10^3/uL; Monocyte% 5.3 % (0-10); NRBC Flagged by Analyzer 0 % (0-5); Neutrophil # 5.76 X10^3/uL (2.7-7.7); Platelet Count 262 K/mm3 (150-450); RBC Distribution Width CV 13.6 % (11.6-14.6); RBC Distribution Width SD 44.4 fl (35.1-43.9); Red Blood Count 4.02 M/mm3 (4.2-5.4); White Blood Count 8.1 K/mm3 (4.4-11.0)
[2020-10-07 17:01] LABS: Amphetamine Urine VISTA NEGATIVE (<1000 ng/mL); Barbiturate Urine VISTA NEGATIVE (< 200 ng/mL); Benzodiazepine Urine VISTA NEGATIVE (< 200 ng/mL); Cocaine Urine VISTA NEGATIVE (< 300 ng/mL); Ecstacy Urine VISTA NEGATIVE (< 500 ng/mL); Methadone Urine VISTA NEGATIVE (< 300 ng/mL); PCP Urine VISTA NEGATIVE (< 25 ng/mL); THC Urine VISTA NEGATIVE (< 50 ng/mL); Vista UDS pH Range 6
[2020-10-08 14:28] LABS: HIV - WCH Non-Reactive (Nonreactive); Hepatitis B Surface Antigen Non-Reactive (Nonreactive); Hepatitis C Antibody Non-Reactive (Nonreactive); Rubella IgG Reactive (Nonreactive); Syphilis Antibodies Non-reactive
== END ==
PROVIDERS: Referring Provider Obstetrics & Gynecology; Visit Provider Obstetrics & Gynecology
DX: Z34.80 Encounter for supervision of other normal pregnancy, unspecified trimester (principal)
CPT/HCPCS: 36415; 80307; 85025; 86703; 86762; 86780; 86803; 86850; 86900; 86901; 87077; 87086; 87088; 87186; 87340

== ENCOUNTER → 2020-11-02 | Outpatient (CLI) | payer BC, SELFPAY | END | disposition home or self-care (01) | LOC: LABSPEC 11:02 | PROVIDERS: Referring Provider Nurse Practitioner Women's Health; Visit Provider Nurse Practitioner Women's Health | DX: O23.40 Unspecified infection of urinary tract in pregnancy, unspecified trimester (principal); Z3A.00 Weeks of gestation of pregnancy not specified | CPT/HCPCS: 87086 ==

== ENCOUNTER → 2020-12-28 | Outpatient (CLI) | payer BC, SELFPAY | END | disposition home or self-care (01) | LOC: LABSPEC 15:45 | PROVIDERS: Referring Provider Obstetrics & Gynecology; Visit Provider Obstetrics & Gynecology | DX: O26.899 Other specified pregnancy related conditions, unspecified trimester (principal); R30.0 Dysuria; Z3A.00 Weeks of gestation of pregnancy not specified | CPT/HCPCS: 87077; 87086; 87088; 87186 ==

== ENCOUNTER → 2021-01-14 16:31 | Outpatient (CLI) | payer BC, SELFPAY | PROVIDERS: Visit Provider Obstetrics & Gynecology | DX: R30.0 Dysuria (principal) | CPT/HCPCS: 87077; 87086; 87088; 87186 ==

== ENCOUNTER → 2021-01-25 10:53 | Outpatient (CLI) | payer BC, SELFPAY ==
[2021-01-25 11:04] LABS: Absolute Lymphocyte Count 1.59 X10^3/uL (0.83-4.51); Absolute Neutrophil Count 5.7 X10^3/uL (2.0-7.7); Basophil# 0.02 X10^3/uL; Basophil% 0.3 % (0-1); Eosinophil# 0.09 X10^3/uL; Eosinophils% 1.1 % (0-5); Hematocrit 31.3 % (37-47); Lymphocyte # 1.59 X10^3/ul (0.83-4.51); Lymphocyte % 20.2 % (19-41); Mean Corp Hgb Conc 31.9 g/dL (32-36); Mean Corpuscular Hgb 29.2 pg (27.0-32.0); Mean Corpuscular Volume 91.5 fL (81-99); Mean Platelet Vol. 9.7 fl (6.2-12.0); Monocyte# 0.44 X10^3/uL; Monocyte% 5.6 % (0-10); NRBC Flagged by Analyzer 0 % (0-5); Neutrophil # 5.69 X10^3/uL (2.7-7.7); Neutrophil % 72.4 % (47-70); Platelet Count 267 K/mm3 (150-450); RBC Distribution Width CV 15.9 % (11.6-14.6); RBC Distribution Width SD 53.5 fl (35.1-43.9); Red Blood Count 3.42 M/mm3 (4.2-5.4); White Blood Count 7.9 K/mm3 (4.4-11.0)
[2021-01-25 11:23] LABS: Glucose Challenge Gest 1H 50g 97 mg/dL (70-140)
== END ==
PROVIDERS: Referring Provider Obstetrics & Gynecology; Visit Provider Obstetrics & Gynecology
DX: Z34.80 Encounter for supervision of other normal pregnancy, unspecified trimester (principal)
CPT/HCPCS: 36415; 82950; 85025

== ENCOUNTER 2021-03-08 08:53 | Outpatient (CLI) | payer BC, SELFPAY ==
--- NOTE | 2021-03-08 08:55 | US_ITS ---
STUDY: SECOND AND THIRD TRIMESTER OBSTETRICAL ULTRASOUND REASON FOR EXAM: Female, 30 years old growth LMP: 07/27/2020. TECHNIQUE: Transabdominal TECHNICAL QUALITY: Adequate. PRIOR ULTRASOUND: None. FINDINGS: There is a single intrauterine fetus. The fetus is in a cephalic presentation. There is demonstrated cardiac activity with a heart rate of 140 bpm. There is a normal amniotic fluid volume. The largest amniotic fluid pocket measures 3.9 cm. The amniotic fluid index (MARITZA) is 13.4 cm. The placenta is anterior in location and is not low lying. There are Grade 1 placental changes. The cervix measures 4.7 cm in length. The adnexal regions are not visualized. BIOMETRY: BPD: 8.35 cm: 33 weeks, 4 days HC: 30.1 cm: 33 weeks, 2 days AC: 31.06 cm: 34 weeks, 6 days FL: 5.83 cm: 30 weeks, 3 days CI: 84% FL/BPD: 70% FL/HC: FL/AC: 19% HC/AC: 0.97 age by current US: 32 weeks, 4 days. ARMANDO by current US: 04/29/2021. Estimated weight: 2232 grams, +/- 335 grams, 86 %. Age by LMP: 32 weeks, 0 days. ARMANDO by LMP: 04/29/2021. US/OB Limited With Biometrics IMPRESSION: Single live intrauterine gestation with a mean gestational age of 32 weeks and 4 days. Electronically Signed: Joel Cordova MD at 10:08 EST , Service support ,
[2021-03-08 11:10] LABS: Absolute Lymphocyte Count 1.68 X10^3/uL (0.83-4.51); Absolute Neutrophil Count 6.8 X10^3/uL (2.0-7.7); Basophil# 0.02 X10^3/uL; Basophil% 0.2 % (0-1); Eosinophil# 0.06 X10^3/uL; Eosinophils% 0.7 % (0-5); Hematocrit 35.5 % (37-47); Hemoglobin 11.2 g/dL (12.0-15.0); Lymphocyte # 1.68 X10^3/ul (0.83-4.51); Lymphocyte % 18.5 % (19-41); Mean Corp Hgb Conc 31.5 g/dL (32-36); Mean Corpuscular Hgb 29.2 pg (27.0-32.0); Mean Corpuscular Volume 92.4 fL (81-99); Mean Platelet Vol. 10.2 fl (6.2-12.0); Monocyte# 0.43 X10^3/uL; Monocyte% 4.7 % (0-10); NRBC Flagged by Analyzer 0 % (0-5); Neutrophil # 6.84 X10^3/uL (2.7-7.7); Neutrophil % 75.6 % (47-70); Platelet Count 278 K/mm3 (150-450); RBC Distribution Width CV 15.1 % (11.6-14.6); RBC Distribution Width SD 50.8 fl (35.1-43.9); Red Blood Count 3.84 M/mm3 (4.2-5.4); White Blood Count 9.1 K/mm3 (4.4-11.0)
== END 2021-03-08 23:59 | disposition short-term general hospital (02) ==
PROVIDERS: Obstetrics & Gynecology; Referring Provider Nurse Practitioner Women's Health; Visit Provider Nurse Practitioner Women's Health
DX: O99.013 Anemia complicating pregnancy, third trimester (principal); O98.513 Other viral diseases complicating pregnancy, third trimester; U07.1 COVID-19; Z3A.32 32 weeks gestation of pregnancy
CPT/HCPCS: 36415; 76816; 85025

== ENCOUNTER 2021-04-07 09:02 | Outpatient (CLI) | payer BC, SELFPAY ==
--- NOTE | 2021-04-07 09:07 | US_ITS ---
STUDY: SECOND AND THIRD TRIMESTER OBSTETRICAL ULTRASOUND - LIMITED REASON FOR EXAM: Female, 30 years old GROWTH . History of Covid. LMP: 07/27/2020. PRIOR ULTRASOUND: Comparison is made with prior study 03/08/2021. TECHNIQUE: Transabdominal TECHNICAL QUALITY: Adequate. FINDINGS: There is a single intrauterine fetus. The fetus is in a cephalic presentation. There is demonstrated cardiac activity with a heart rate of 155 bpm. There is a normal amniotic fluid volume. The largest amniotic fluid pocket measures 5.0 cm. The amniotic fluid index (MARITZA) is 50 cm. The placenta is anterior in location and is not low lying. There are Grade 2 placental changes. The cervix measures 3.1 cm in length. BIOMETRY: BPD: 9.2 cm: 37 weeks, 2 days HC: 32.5 cm: 36 weeks, 5 days AC: 33.2 cm: 37 weeks, 0 days FL: 6.6 cm: 34 weeks, 1 days Age by LMP: 36 weeks, 2 days. ARMANDO by LMP: 05/04/2019. age by prior US: 36 weeks, 6 days. ARMANDO by prior US: 04/19/2021. age by current US: 36 weeks, 3 days. ARMANDO by current US: 05/02/2021. Estimated weight: 2951 grams, +/- 444 grams, 59 percentile. US/OB Limited With Biometrics IMPRESSION: Single live intrauterine gestation with a mean gestational age of 36 weeks and 6 days. The measurements obtained today fall within the normal expected range. Electronically Signed: Joel Cordova MD at 12:59 EST ,
== END 2021-04-07 23:59 | disposition home or self-care (01) ==
LOC: OPUS 09:03
PROVIDERS: Visit Provider Nurse Practitioner Women's Health
DX: Z36.85 Encounter for antenatal screening for Streptococcus B (principal)
CPT/HCPCS: 76816; 87081

== ENCOUNTER 2021-04-14 13:45 | Outpatient (CLI) | payer BC, SELFPAY | END 2021-04-14 23:59 | disposition home or self-care (01) | LOC: LABSPEC 13:47 | PROVIDERS: Referring Provider Obstetrics & Gynecology; Visit Provider Obstetrics & Gynecology | DX: N89.8 Other specified noninflammatory disorders of vagina (principal) | CPT/HCPCS: 87070; 87205 ==

== ENCOUNTER 2021-04-26 10:00 | Inpatient (IN) | payer BC, SELFPAY ==
[2021-04-26] VITALS (16 sets, daily range): BP systolic 95–116; BP diastolic 53–70; PULSE 57–89; RESP 14–16; TEMP 36.1–36.7; O2SAT 97–100; BMI 32.1
--- NOTE | 2021-04-26 05:54 | HP.PCM_ITS ---
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 Impaired Required: No Allergies No Known Allergies Allergy (Verified 04/21/21 11:22) Medications PNV cmb#95-ferrous fumarate-FA 1 tab PO DAILY 09/03/19 [History Confirmed 04/21/21] amoxicillin 500 mg capsule 500 mg PO DAILY 30 Days #30 cap 03/29/21 [Rx Confirmed 04/21/21] terconazole 0.4 % vaginal cream 1 appful VAGINAL QHS 7 Days #45 g 04/18/21 [Rx Confirmed 04/21/21] Last Menstral Period: 07/27/20 Zika: Zika virus screening: Negative : No PFSH PFSH Medical History Anemia affecting Erythema nodosum H/O recurrent urinary tract infection Recurrent UTI Supervision of other normal Surgical History H/O section History of primary section Family History Grandfather Leukemia Grandmother Hypertension Social History Smoking Status: Former smoker alcohol intake: never substance use type: does not use caffeine: Yes what type of physical activity do you participate in: none seatbelt use: always do you feel safe at home: Yes additional social history: - [facility] Patient works at [employer] Pre[employer] History 2 Elective abortions Hx Para 1 Spontaneous abortions Hx # Term Pregnancies 1 Ectopic pregnancies Hx # Pregnancies Multiple births # of living children 1 Past Pregnancies Del. Date Name GA/Weeks Outcome Route Bth Weight Infant Gen Labor Lgth Anesthesia Del Locatn Provider FOB 02/02/20 [place] 41 live - full term Female [facility] Nathan Delivery Date: 02/02/20 primary csection for arrest of dilation. Had intrapartum intraamniotic infection. Baby transported to [facility] possible meconium aspiration Josefa Hopkins HPI 38 WK OB Details: JEFRY OLEARY is a 30 year old who presents for repeat low transverse section ROS Const Reports system reviewed and no additional complaints, except as documented Card Reports system reviewed and no additional complaints, except as documented Resp Reports system reviewed and no additional complaints, except as documented GI Reports system reviewed and no additional complaints, except as documented, Reports nausea Reports system reviewed and no additional complaints, except as documented Musc Reports system reviewed and no additional complaints, except as documented all other systems reviewed and negative Exam Const General: cooperative, healthy appearing, comfortable HENMT Head: normal to inspection Nose: external nose normal Face and sinus: normal facial exam Neck Neck: normal visual inspection, full ROM, no lymphadenopathy Thyroid: thyroid normal Chest Chest palpation & inspection: normal inspection of the chest Resp Effort & Inspection: normal respiratory effort GI Inspection: normal to inspection Palpation: soft, other (gravid uterus) Other: vertex and appropriate size for gestational age Other: Cervical Exam: Extrem General: pedal edema OB Visit ARMANDO Calculator Estimated Delivery Date Method Current WG Current Estimate 05/03/21 LMP (Certain) 38w 2d Expected Delivery Route/Plan RLTCS with SM : yes PP control planned: considering IUD Specific Issue/Plans Covid status: pos in , counseled regarding risk of covid in vs vaccination and declined vaccination Flu vaccine: no Tdap vaccine: given Rhogam: na LARC form signed: yes Problem list reviewed and updated with the most current plan of care details and appropriate orders placed. Relevant counseling for the gestational age provided. Continue routine care and follow up unless otherwise noted in visit notes/problem list details Initial Weight: 143 lb Date EGA Weight BP Urine Prot Glucose FHR FuHt Pres Dilation Effaced St Visit Note 10/07/20 10w 2d 143 lb 8 oz (+8 oz) 120/78 160 GP - CRL 30mm consistent with LMP. 11/02/20 14w 0d 144 lb (+16 oz) 120/66 Negative Negative 144 MH-No VB, LOF. MFM US ordered. Rpt urine culture. 12/02/20 18w 2d 148 lb (+5 lb) 110/82 Negative Negative 150 SM- no vb lof good fm SM- no vb lof some fm , recovered from covid 12/28/20 22w 0d 158 lb 2 oz (+15 lb 2 oz) 102/60 Negative Negative 135 JV- bladder infection symptoms today. + dip. needs rpt anatomy scan for further images of heart 01/25/21 26w 0d 172 lb (+29 lb) 106/64 Negative Negative 140 26 SM- no vb lof good fm no regular ctx 02/08/21 28w 0d 171 lb 2 oz (+28 lb 2 oz) 108/60 Trace Negative 143 28 MH-No VB, LOF. Good FM. tdap, larc. Taking extra FE. US growth 32 and 36 wk ordered. 02/24/21 30w 2d 172 lb 8 oz (+29 lb 8 oz) 110/80 Negative Negative 125 31 Cephalic JV- no lof, vaginal bleeding, or dec fm. growth scan in 2 weeks. 03/08/21 32w 0d 173 lb (+30 lb) 130/82 Negative Negative 130 32 33 Cephalic SM- SM- no vb lof good fm no regular ctx 03/22/21 34w 0d 180 lb (+37 lb) 102/70 Negative Negative 130 34 Cephalic SM- no vb lof good fm no regular ctx 04/07/21 36w 2d 184 lb (+41 lb) 110/84 130 36 Cephalic Sm- no vb lof good fm no regular ctx gbs 04/14/21 37w 2d 187 lb (+44 lb) 122/60 Negative Negative 130 37 Cephalic SM- co vaginal discharge, culture sent. no vb lof good fm no reuglar ctx 04/21/21 38w 2d 186 lb (+43 lb) 110/80 127 38 Cephalic JV- labor precautions discussed. plan for rpt section next week ACOG First Trimester First Trimester: Desire for , Alcohol, Tobacco Cessation, Illicit/Recreational Drug/Substance Use, Intimate Partner Violence, Barriers to care, Unstable Housing, Communication Barriers, Environmental/Work Hazards, Anticipated Course of Care, Toxoplasmosis Precations, Use of Any medications, Sexual activity, Exercise, Dental Care, Sauna/Hot tub use, Seat Belt use, Childbirth classes/Hospital facilities, , Travel, Indications for Ultrasound and Screening for Aneuploidy Second Trimester Second Trimester: Signs and Symptoms of Labor, Selecting a care provider, Reproductive Life Planning & Contreception, Care Planning, Depression/Anxiety and Intimate Partner Violence; Discussed Tobacco Cessation Third Trimester Third Trimester: Pain Management Plans, Trial of Labor after Counseling, Labor support person(s), Immediate Larc, Signs and Symptoms of Preeclampsia, Feeding Yes , [place] Education a nd Family Medical Leave or Disability Forms Diagnostics Diagnostics Diagnostics: Glucose 1 Hr 50 gm 97 mg/dL (70-140) Hgb 11.2 g/dL (12.0-15.0) L Hct 35.5 % (37-47) L Details: HIV: Urine Culture: Sequential Screen: NIPT Screen: Coding Level of Care Code OB Routine Diagnoses Anemia affecting O99.013 Trimester: third trimester COVID-19 affecting , antepartum O98.519; U07.1 UTI in O23.41 Trimester: first trimester Short interval between pregnancies affecting , antepartum O09.899 H/O section Z98.891 Supervision of other normal Z34.80 Z3A.38 Weeks of gestation: 38 weeks Breast lump N63.0 Assessment and Plan Assessment and Plan (1) Anemia affecting : Status: Acute Qualifiers: Trimester: third trimester Qualified Code(s): O99.013 - Anemia complicating , third trimester Comment: iron added (2) COVID-19 affecting , antepartum: Status: Acute Comment: Baby ASA; growth US at 36 weeks normal (3) UTI in : Status: Acute Qualifiers: Trimester: first trimester Qualified Code(s): O23.41 - Unspecified infection of urinary tract in , first trimester Comment: 11/02/20 Culture neg if culture 12/28 pos, 01/14 pos on prophylactic medication for rest of - plan to stop macrobid at 36 weeks. pt may want to take nothing the last week rather than switching to amoxicillin to prevent further issues (ex yeast infections) (4) Short interval between pregnancies affecting , antepartum: Status: Acute Comment: previous delivery 01/2020 (5) H/O section: Status: Acute Comment: plan scheduled c/s at 39 weeks, 04/26/21 @ 12 (6) Supervision of other normal : Status: Acute Comment: PRR ARMANDO: 05/03/21 girl [place] PC: [place] Spouse: Ritchie (7) : Status: Acute Qualifiers: Weeks of gestation: 38 weeks Qualified Code(s): Z3A.38 - 38 weeks gestation of Comment: nl anatomy, declines carrier, genetic and NTD (8) Breast lump: Status: Acute Comment: BENIGN. Lump noted in left lower outer quadrant of breast. 2cm in size and mobile. Ultrasound BIRADS 4. 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- patient to follow up w/ [facility] after Plan Details Other Orders: Orders: POC Urinalysis 2 Dip (Clinic) Today UPDATE- I have seen the patient and performed any clinically relevant updates to the history and physical exam. Angelic Schneider MD
[2021-04-26] MEDS: Lactated Ringers 1,000 ML 999 ML IV (10:30)
[2021-04-26 10:54] LABS: Absolute Lymphocyte Count 2.04 X10^3/uL (0.83-4.51); Absolute Neutrophil Count 5.6 X10^3/uL (2.0-7.7); Basophil# 0.02 X10^3/uL; Basophil% 0.2 % (0-1); Eosinophil# 0.09 X10^3/uL; Eosinophils% 1.1 % (0-5); Hematocrit 33.1 % (37-47); Hemoglobin 11.4 g/dL (12.0-15.0); Lymphocyte # 2.04 X10^3/ul (0.83-4.51); Lymphocyte % 24.4 % (19-41); Mean Corp Hgb Conc 34.4 g/dL (32-36); Mean Corpuscular Hgb 30.7 pg (27.0-32.0); Mean Corpuscular Volume 89.2 fL (81-99); Monocyte# 0.57 X10^3/uL; Monocyte% 6.8 % (0-10); NRBC Flagged by Analyzer 0 % (0-5); Neutrophil # 5.61 X10^3/uL (2.7-7.7); Neutrophil % 67.1 % (47-70); Platelet Count 192 K/mm3 (150-450); RBC Distribution Width SD 48.8 fl (35.1-43.9); Red Blood Count 3.71 M/mm3 (4.2-5.4); White Blood Count 8.4 K/mm3 (4.4-11.0)
--- NOTE | 2021-04-26 11:16 | OP.PCM_ITS ---
Assessment & Plan (1) Breast lump: COMMENT: BENIGN. Lump noted in left lower outer quadrant of breast. 2cm in size and mobile. Ultrasound BIRADS 4. 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- patient to follow up w/ [facility] after (2) : QUALIFIERS: Weeks of gestation: 38 weeks Qualified Code(s): Z3A.38 - 38 weeks gestation of COMMENT: nl anatomy, declines carrier, genetic and NTD (3) Supervision of other normal : COMMENT: PRR ARMANDO: 05/03/21 girl [place] PC: [place] Spouse: Ritchie (4) H/O section: COMMENT: plan scheduled c/s at 39 weeks, 04/26/21 @ 12 (5) Short interval between pregnancies affecting , antepartum: COMMENT: previous delivery 01/2020 (6) UTI in : QUALIFIERS: Trimester: first trimester Qualified Code(s): O23.41 - Unspecified infection of urinary tract in , first trimester COMMENT: 11/02/20 Culture neg if culture 12/28 pos, 01/14 pos on prophylactic medication for rest of - plan to stop macrobid at 36 weeks. pt may want to take nothing the last week rather than switching to amoxicillin to prevent further issues (ex yeast infections) (7) COVID-19 affecting , antepartum: COMMENT: Baby ASA; growth US at 36 weeks normal (8) Anemia affecting : QUALIFIERS: Trimester: third trimester Qualified Code(s): O99.013 - Anemia complicating , third trimester COMMENT: iron added (9) delivery delivered: COMMENT: RLTCS girl 39 [place] Maternal Data Information ARMANDO Calculator Estimated Delivery Date Method Current WG Current Estimate 05/03/21 LMP (Certain) 39w 0d Final ARMANDO Source: LMP Details Operative Information Date of Procedure: 04/26/21 Pre-Operative Diagnosis: Previous Post-Operative Diagnosis: same plus right ovarian growth and sigmoid to left parametrial and paraovarian adhesions, anterior abdominal wall to uterine adhesions. hemorrhage Indications for : Repeat Elective (Adhesiolysis and right partial oophorectomy) Classification: Scheduled Procedure Type: low transverse general freight agent #1: Solitario Quinones Type of Anesthesia: Spinal Special Medications: Methergine tranexamic acid Pitocin Antibiotic Given: Ancef 2 grams IV x1 Drain: Lundberg to straight drain Estimated Blood Loss: 1300 Fluids Replaced: crystalloid Findings Description of Procedure: Spinal anesthesia was placed without difficulty. Lundberg catheter was placed. The patient was placed in the dorsal supine position with leftward tilt. Patient was prepped and draped in the normal sterile fashion. Pfannenstiel skin incision was made with the scalpel and carried through to the underlying layer of fascia with the scalpel. Fascia was nicked in the midline and the incision extended laterally. The rectus bellies were dissected off superiorly and inferiorly with out complication both sharply and bluntly. The peritoneum was entered digitally. The incision was stretched and a low transverse uterine incision was made with the scalpel. The infant's head was delivered atraumatically followed by the anterior and posterior shoulders without complication the rest of the infant delivered. The cord was clamped and cut and the was handed off to awaiting nurse. The placenta was delivered spontaneously immediately following and was noted to be intact and have a three- vessel cord. The uterus was exteriorized cleared of all clots and debris, and the incision was closed in a double layer closure using #1 Monocryl. The lining of the uterus was noted to be friable and oozing and therefore the patient was given Methergine, tranexamic acid, bimanual massage was employed and a bakri balloon was placed inside the lining of the uterus to provide pressure on the area. While closing the incision the balloon was popped and therefore removed. Bleeding was within normal limits it was not replaced. Significant adhesion disease was noted from the uterus to anterior abdominal wall which was clamped cut and ligated with 3-0 Monocryl and taken down sharply and bluntly. Sigmoid to left parametrial and paraovarian tissues adhesions were also seen and taken down sharply and with the Bovie. Around the fallopian tube careful dissection was employed to free up the filmy adhesions that were noted around the area. Normal anatomy was restored. The ovaries were inspected and the right ovary was noted to have a hard white growth protruding off of it and therefore the patient was consented and her in the middle of surgery for removal of that part of the ovary and they agreed to it. The base was clamped with a Jonathan and it cut and removed and sent to pathology for analysis. This was suture-ligated with 0 Vicryl and 3-0 Monocryl for hemostasis. Shawn was applied over the raw areas where scar tissue was noted for hemostasis. The uterus was returned to the maternal abdomen and gutters were cleared of all clots and debris. The peritoneum was closed with 3-0 Monocryl in a running fashion. Gloves were changed prior to fascial closure. Fascia was closed with 0 PDS in a running fashion. Subcutaneous tissue was copiously irrigated and the skin was closed with 3-0 Monocryl in a subcuticular fashion. Mepilex dressing was applied without complication. Patient was taken to recovery in stable condition. It was discussed with the patient that based on the clinical information obtained during this encounter, combined with her history, at this time I would recommend cesareans for future deliveries if further pregnancies are desired. Amniotic Membrane Rupture Type: Artificial Amniotic Fluid Description: Clear Placenta Disposition: [facility] Cord Vessel Description: 3 Vessels Cord Entanglement: None Delayed Cord Clamping: Yes Complications Risks of Surgery Discussed w/Patient: Bleeding, Infection, Need for Future C- Sections and Injury to surrounding structure(s) including bowel and bladder Vaginal Delivery Complication Complications: None Admit VTE Documentation VTE Present on Admission: No VTE Mechan Device Prophylaxis: SCD's Multi Select Codes Urinary/Genital Urinary/Genital CPT Codes: 08645 Ovarian cystectomy laparotomy (partial oophorectomy) and 74652 Delivery [facility]
--- NOTE | 2021-04-26 11:18 | PCM.DC ---
Discharge Instructions Diet Discharge Diet: No restrictions Activity Discharge Activity: May Not Drive (for 2 weeks or while taking narcotic pain medications.), May Shower and May Take a Tub Bath (in 7 days) May shower in (days): 0 May resume sexual activity in: 4-6 weeks Weight Bearing Status: Full weight bearing Lifting Restrictions: 20 pounds Dressing / Incision Call your doctor if your incision/area has: Continuous Slow Oozing, Sudden Increased Bleeding, Increased Pain/ Swelling, Increased Redness and Foul Smelling Discharge Call your doctor if you observe: Fever of 101 or Higher and Using more than 1 pad per hour (for 2 hours) Suture Line Care: Avoid Pulling/Pushing and Avoid Pinching/Bending Cleanse incision/area with: Soap & Water and Keep Dressing Clean & Dry Follow Up Care Please Follow Up With: Angelic Schneider MD When: Call [phone] to make an appointment for an incision check in 1-2 weeks. Test Results: Test results from this visit will be discussed in further detail at your follow-up appointment, if applicable. Discharge Plan Admission Admit Date/Time: 04/26/21 10:00 Attending Provider: Angelic Schneider Primary Care Provider: Care Physician,Suzi Primary Discharge Orders/Prescriptions Prescriptions: New oxycodone-acetaminophen [Percocet] 5-325 mg tablet 1 tab PO Q6H PRN (Reason: pain) 7 Days Qty: 20 RF: 0 naproxen [naproxen] 500 MG tablet 500 mg PO BID PRN PRN (Reason: Pain) Qty: 30 RF: 1 Continued PNV cmb#95-ferrous fumarate-FA 1 EACH tablet 1 tab PO DAILY RF: 0 amoxicillin 500 mg capsule 500 mg PO DAILY RF: 0 aspirin 81 mg Tablet PO RF: 0 Referrals / Follow Up: Care Physician,No Primary [Primary Care Provider] - Disposition Disposition (needs filled in before D/C Order can be placed): Home, Self Care
[2021-04-26] MEDS: Acetaminophen 500 MG Tablet 1000 MG PO ×2 (11:32→17:56)
[2021-04-26] MEDS: Sodium Citrate/Citric Acid 30 ML UDC PO (11:32)
[2021-04-26] MEDS: Lactated Ringers 1,000 ML 150 ML IV (11:32)
[2021-04-26] MEDS: Cefazolin 2 GM in 0.9% Normal Saline 100 ML IV (11:55)
[2021-04-26] MEDS: Methylergonovine 0.2 MG/ML Ampul IM (12:28)
[2021-04-26] MEDS: Oxytocin 30 units/NS 500 ml 30 UNITS/500 ML IV.SOLN 167 UNITS IV (13:40)
[2021-04-26] MEDS: Ketorolac 30 MG/ML Syringe IV ×2 (13:50→20:48)
[2021-04-26] MEDS: 0.9% Saline Lock 10 ML Syringe IV ×2 (13:50→20:49)
--- NOTE | 2021-04-26 15:06 | OV_PTH ---
PATIENT: JEFRY OLEARY LOC: [facility] U#:[id number] AGE/SX: 30/F ROOM: WP006 RE04/26/[address]: Dr. Angelic Schneider MD : 1990 BED: 1 DIS: 04/28/2021 SPEC #: [id number] RECD: 04/26/21 15:33 STATUS: ALIZE NANCY #: [id number] LESTER: 04/26/21 15:[address]: Angelic Schneider DEPT: SURGICAL PATHOLOGY RECD BY: Abimbola Hubbard ENTERED: 04/27/21 09:08 SP TYPE: OVARY OTHR DR: No Primary Care Phys Tissues: Right ovary Procedures: Surgery Specimen Level IV HEADER OPERATION: Not noted PRE-OP DIAGNOSIS: Right ovarian growth TISSUE SUBMITTED: Right ovarian growth MICROSCOPIC DIAGNOSIS Right ovarian mass, biopsy: Consistent with thecoma/fibroma. AM:chioma 04/28/2021 MICROSCOPIC DESCRIPTION Slides are reviewed. GROSS DESCRIPTION Received in fixative is one container labeled with the patient's name and designated right ovarian growth. The specimen consists of a rubbery fragment of gerardo-white soft tissue measuring 1.7 x 1.2 x 0.6 cm. The specimen is serially sectioned and totally submitted in one cassette. / AM:chioma 04/27/2021 TC:1 CPT: 30973
[2021-04-26 15:34] LABS: Pathology Specimen OB SEE PATHOLOGY REPORT
[2021-04-26 17:30] LABS: Hematocrit 28.4 % (37-47); Hemoglobin 9.2 g/dL (12.0-15.0); Mean Corp Hgb Conc 32.4 g/dL (32-36); Mean Corpuscular Hgb 29.1 pg (27.0-32.0); Mean Corpuscular Volume 89.9 fL (81-99); Mean Platelet Vol. 10.7 fl (6.2-12.0); Platelet Count 182 K/mm3 (150-450); RBC Distribution Width CV 15.3 % (11.6-14.6); Red Blood Count 3.16 M/mm3 (4.2-5.4); White Blood Count 12.5 K/mm3 (4.4-11.0)
[2021-04-26] MEDS: Cefazolin 1 GM/50 ML BAG IV (20:53)
[2021-04-27] MEDS: Acetaminophen 500 MG Tablet 1000 MG PO ×4 (00:05→18:24)
[2021-04-27] MEDS: 0.9% Saline Lock 10 ML Syringe IV ×2 (02:37→09:11)
[2021-04-27] MEDS: Ketorolac 30 MG/ML Syringe IV ×2 (02:37→09:10)
[2021-04-27 04:15] VITALS: BP 104/68; PULSE 62; RESP 16; TEMP 36.9; O2SAT 98
[2021-04-27 05:34] LABS: Hemoglobin 8.9 g/dL (12.0-15.0); Mean Corpuscular Hgb 30.7 pg (27.0-32.0); Mean Corpuscular Volume 93.1 fL (81-99); Mean Platelet Vol. 10.8 fl (6.2-12.0); Platelet Count 163 K/mm3 (150-450); RBC Distribution Width CV 15.1 % (11.6-14.6); RBC Distribution Width SD 51.3 fl (35.1-43.9); White Blood Count 11.7 K/mm3 (4.4-11.0)
--- NOTE | 2021-04-27 07:31 | NURSING ---
Luiza Yadav on unit. Wants a CBC drawn late this morning to watch Hgb trend due to PPH. Ordered for 1100
--- NOTE | 2021-04-27 07:51 | PCM.PN.OB ---
Subjective Subjective Patient doing well without complaints. Tolerating PO. Ambulating and voiding without difficulty. Feeding well. Denies chest pain, shortness of breath, calf pain/swelling, fevers, chills, lightheadedness. Objective Data Objective Data Vital Signs: Vital Signs Temp Pulse Resp BP Pulse Ox 98.4 F 62 16 104/68 98 04/27/21 04:15 04/27/21 04:15 04/27/21 04:15 04/27/21 04:15 04/27/21 04:15 Oxygen Delivery Method Room Air Weight: 187 lb Body Mass Index (BMI) 32.1 Intake & Output: Intake and Output for Last 24 Hours 04/25/21 04/26/21 04/27/21 23:59 23:59 23:59 Intake Total 2527.5 / 2527.5 Output Total 1250 / 1250 Balance 1277.5 / 1277.5 Lab / Micro Data Result Diagrams: 04/27/21 05:25 Labs: Laboratory Results - last 24 hr 04/26/21 10:30: WBC 8.4, RBC 3.71 L, Hgb 11.4 L, Hct 33.1 L, MCV 89.2, MCH 30.7, MCHC 34.4, RDW Std Deviation 48.8 H, RDW Coeff of Amos 15.0 H, Plt Count 192, MPV 11.0, Immature Gran % (Auto) 0.400, Neut % (Auto) 67.1, Lymph % (Auto) 24.4, Archuleta % (Auto) 6.8, Eos % (Auto) 1.1, Baso % (Auto) 0.2, Absolute Neuts (auto) 5.6, Absolute Lymphs (auto) 2.04, Nucleated RBC % 0 04/26/21 10:30: Blood Type A POSITIVE, Antibody Screen NEGATIVE 04/26/21 17:05: WBC 12.5 H, RBC 3.16 L, Hgb 9.2 L, Hct 28.4 L, MCV 89.9, MCH 29.1, MCHC 32.4 D, RDW Std Deviation 50.0 H, RDW Coeff of Amos 15.3 H, Plt Count 182, MPV 10.7 04/27/21 05:25: WBC 11.7 H, RBC 2.90 L, Hgb 8.9 L, Hct 27.0 L, MCV 93.1, MCH 30.7, MCHC 33.0, RDW Std Deviation 51.3 H, RDW Coeff of Amos 15.1 H, Plt Count 163, MPV 10.8 Micro: Microbiology 04/26/21 10:30 Nasal Secretion SARS-CoV-2 Antigen (Rapid) - Final Physical Exam Const alert and oriented x3 HEENT normocephalic Eyes PERRL Neck full ROM Resp normal respiratory effort GI soft to palpation GI Narrative: FF below U Palpation: tender other (appropriately; incision dressing dry and intact) Assessment & Plan (1) delivery delivered: COMMENT: RLTCS girl 39 [place] (2) Anemia: QUALIFIERS: Anemia type: unspecified type Qualified Code(s): D64.9 - Anemia, unspecified PLAN: s/p LTCS PPD # 1 1. routine post care 2. breast feeding- support given 3. rh positive 4. rubella immune 5. Rpt CBC
[2021-04-27] MEDS: Senna/Docusate Sodium 1 Tablet PO (09:11)
[2021-04-27 09:15] VITALS: BP 89/57; PULSE 68; RESP 17; TEMP 36.2; O2SAT 98
[2021-04-27 11:26] LABS: Hemoglobin 8.5 g/dL (12.0-15.0); Mean Corpuscular Hgb 30.6 pg (27.0-32.0); Mean Corpuscular Volume 89.9 fL (81-99); Mean Platelet Vol. 10.4 fl (6.2-12.0); Platelet Count 181 K/mm3 (150-450); RBC Distribution Width CV 15.1 % (11.6-14.6); RBC Distribution Width SD 48.8 fl (35.1-43.9); Red Blood Count 2.78 M/mm3 (4.2-5.4); White Blood Count 10.2 K/mm3 (4.4-11.0)
[2021-04-27 12:22] VITALS: BP 104/68; PULSE 78; RESP 16; TEMP 36.3; O2SAT 100
[2021-04-27] MEDS: Naproxen 500 MG Tablet PO ×2 (14:45→22:46)
[2021-04-27 16:15] VITALS: BP 102/60; PULSE 76; RESP 15; TEMP 36.7; O2SAT 99
[2021-04-27 20:04] VITALS: BP 103/65; PULSE 78; RESP 16; TEMP 36.6; O2SAT 99
[2021-04-28] MEDS: Acetaminophen 500 MG Tablet 1000 MG PO ×2 (00:15→06:50)
[2021-04-28 01:55] VITALS: BP 95/52; PULSE 67; RESP 16; TEMP 36.3; O2SAT 98
[2021-04-28] MEDS: Naproxen 500 MG Tablet PO (06:50)
[2021-04-28 08:17] VITALS: BP 95/52; PULSE 69; RESP 18; TEMP 36.6
[2021-04-28 09:18] VITALS: BP 105/62
[2021-04-28 09:27] LABS: Absolute Lymphocyte Count 1.99 X10^3/uL (0.83-4.51); Absolute Neutrophil Count 6.9 X10^3/uL (2.0-7.7); Basophil# 0.01 X10^3/uL; Basophil% 0.1 % (0-1); Eosinophil# 0.09 X10^3/uL; Eosinophils% 0.9 % (0-5); Hematocrit 24.3 % (37-47); Hemoglobin 7.9 g/dL (12.0-15.0); Lymphocyte # 1.99 X10^3/ul (0.83-4.51); Lymphocyte % 20.6 % (19-41); Mean Corp Hgb Conc 32.5 g/dL (32-36); Mean Corpuscular Hgb 30.6 pg (27.0-32.0); Mean Corpuscular Volume 94.2 fL (81-99); Mean Platelet Vol. 10.5 fl (6.2-12.0); Monocyte# 0.55 X10^3/uL; Monocyte% 5.7 % (0-10); NRBC Flagged by Analyzer 0 % (0-5); Neutrophil # 6.94 X10^3/uL (2.7-7.7); Neutrophil % 72.1 % (47-70); Platelet Count 200 K/mm3 (150-450); RBC Distribution Width CV 15.6 % (11.6-14.6); RBC Distribution Width SD 53.1 fl (35.1-43.9); Red Blood Count 2.58 M/mm3 (4.2-5.4); White Blood Count 9.6 K/mm3 (4.4-11.0)
--- NOTE | 2021-04-28 09:51 | PCM.PN.OB ---
Subjective Subjective Patient doing well without complaints. Tolerating PO. Ambulating and voiding without difficulty. feeding well. Denies chest pain, shortness of breath, calf pain/swelling, fevers, chills, lightheadedness. Objective Data Objective Data Vital Signs: Vital Signs Temp Pulse Resp BP Pulse Ox 98 F 69 18 105/62 98 04/28/21 08:17 04/28/21 08:17 04/28/21 08:17 04/28/21 09:18 04/28/21 01:55 Oxygen Delivery Method Room Air Weight: 187 lb Body Mass Index (BMI) 32.1 Intake & Output: Intake and Output for Last 24 Hours 04/26/21 04/27/21 04/28/21 23:59 23:59 23:59 Intake Total 2527.5 / 2527.5 Output Total 1250 / 1250 Balance 1277.5 / 1277.5 Lab / Micro Data Result Diagrams: 04/28/21 08:15 Labs: Laboratory Results - last 24 hr 04/27/21 11:15: WBC 10.2, RBC 2.78 L, Hgb 8.5 L, Hct 25.0 L, MCV 89.9, MCH 30.6, MCHC 34.0, RDW Std Deviation 48.8 H, RDW Coeff of Amos 15.1 H, Plt Count 181, MPV 10.4 04/28/21 08:15: WBC 9.6, RBC 2.58 L, Hgb 7.9 L, Hct 24.3 L, MCV 94.2, MCH 30.6, MCHC 32.5, RDW Std Deviation 53.1 H, RDW Coeff of Amos 15.6 H, Plt Count 200, MPV 10.5, Immature Gran % (Auto) 0.600, Neut % (Auto) 72.1 H, Lymph % (Auto) 20.6, [place] % (Auto) 5.7, Eos % (Auto) 0.9, Baso % (Auto) 0.1, Absolute Neuts (auto) 6.9, Absolute Lymphs (auto) 1.99, Nucleated RBC % 0 Micro: Microbiology 04/26/21 10:30 Nasal Secretion SARS-CoV-2 Antigen (Rapid) - Final ROS Constitutional Constitutional: Reports systems reviewed and no addt'l complaints, except as documented Cardiovascular Cardiovascular: Reports systems reviewed and no addt'l complaints, except as documented Respiratory/Chest Respiratory/Chest: Reports systems reviewed and no addt'l complaints, except as documented Gastrointestinal Gastrointestinal: Reports systems reviewed and no addt'l complaints, except as documented Physical Exam Const alert, oriented x3 and no apparent distress HEENT Head and Scalp: atraumatic Resp normal respiratory effort GI soft to palpation and non-tender Inspection: incision intact, healing well and drainage (none) Bimanual Exam - Vag & Uterus: uterus non-tender Uterus Palpation: uterus fundus firm (below Umbilicus) Assessment & Plan (1) delivery delivered: COMMENT: RLTCS girl 38 [address] (2) Anemia: QUALIFIERS: Anemia type: unspecified type Qualified Code(s): D64.9 - Anemia, unspecified COMMENT: repeat cbc this am due to hypotension stable. iron supplement. PLAN: s/p LTCS PPD # 2 1. routine post care 2. breast feeding- support given 3. rh positive 4. rubella immune
[2021-04-28] MEDS: Senna/Docusate Sodium 1 Tablet PO (10:36)
== END 2021-04-28 11:40 | disposition home or self-care (01) | DRG 787 ==
PROVIDERS: Nurse Practitioner Women's Health; Admitting Provider Obstetrics & Gynecology; Visit Provider Obstetrics & Gynecology
PROC: 10D00Z1 Extraction of Products of Conception, Low, Open Approach (ICD-10-PCS; CPT 59514; principal; 2021-04-26 11:45)
DX: O34.211 Maternal care for low transverse scar from previous cesarean delivery (principal); O99.43 Diseases of the circulatory system complicating the puerperium; I95.89 Other hypotension; D27.0 Benign neoplasm of right ovary; O34.83 Maternal care for other abnormalities of pelvic organs, third trimester; D24.2 Benign neoplasm of left breast; O99.02 Anemia complicating childbirth; O92.29 Other disorders of breast associated with pregnancy and the puerperium; N73.6 Female pelvic peritoneal adhesions (postinfective); O99.892 Other specified diseases and conditions complicating childbirth; Z87.440 Personal history of urinary (tract) infections; Z37.0 Single live birth; Z3A.39 39 weeks gestation of pregnancy; Z87.59 Personal history of other complications of pregnancy, childbirth and the puerperium; Z86.16 Personal history of COVID-19; Z87.891 Personal history of nicotine dependence
CPT/HCPCS: 59050; 85025; 85027; 86850; 86900; 86901; 87811; 88305; 99218; J7120; A4216; G0378; J2405

== ENCOUNTER → 2021-06-17 | Outpatient (CLI) | payer BC, SELFPAY ==
[2021-06-17 14:36] LABS: Absolute Lymphocyte Count 2.65 X10^3/uL (0.83-4.51); Absolute Neutrophil Count 3.6 X10^3/uL (2.0-7.7); Basophil# 0.03 X10^3/uL; Basophil% 0.4 % (0-1); Eosinophil# 0.12 X10^3/uL; Eosinophils% 1.8 % (0-5); Hematocrit 33.5 % (37-47); Hemoglobin 10.6 g/dL (12.0-15.0); Lymphocyte # 2.65 X10^3/ul (0.83-4.51); Mean Corp Hgb Conc 31.6 g/dL (32-36); Mean Corpuscular Hgb 28.3 pg (27.0-32.0); Mean Corpuscular Volume 89.3 fL (81-99); Mean Platelet Vol. 9.6 fl (6.2-12.0); Monocyte# 0.38 X10^3/uL; Monocyte% 5.6 % (0-10); NRBC Flagged by Analyzer 0 % (0-5); Neutrophil # 3.59 X10^3/uL (2.7-7.7); Neutrophil % 52.9 % (47-70); Platelet Count 342 K/mm3 (150-450); RBC Distribution Width CV 13.8 % (11.6-14.6); RBC Distribution Width SD 45.1 fl (35.1-43.9); Red Blood Count 3.75 M/mm3 (4.2-5.4); White Blood Count 6.8 K/mm3 (4.4-11.0)
== END | disposition home or self-care (01) ==
LOC: LAB 14:10
PROVIDERS: Referring Provider Nurse Practitioner Women's Health; Visit Provider Nurse Practitioner Women's Health
DX: D64.9 Anemia, unspecified (principal)
CPT/HCPCS: 36415; 85025

== ENCOUNTER → 2022-07-11 | Outpatient (CLI) | payer BC, SELFPAY ==
[2022-07-11 10:44] LABS: Absolute Lymphocyte Count 2.25 X10^3/uL (0.83-4.51); Absolute Neutrophil Count 2.6 X10^3/uL (2.0-7.7); Basophil# 0.02 X10^3/uL; Basophil% 0.4 % (0-1); Eosinophil# 0.15 X10^3/uL; Eosinophils% 2.8 % (0-5); Hematocrit 39.4 % (37-47); Hemoglobin 12.5 g/dL (12.0-15.0); Lymphocyte # 2.25 X10^3/ul (0.83-4.51); Mean Corp Hgb Conc 31.7 g/dL (32-36); Mean Corpuscular Hgb 28.5 pg (27.0-32.0); Mean Platelet Vol. 9.8 fl (6.2-12.0); Monocyte# 0.38 X10^3/uL; Monocyte% 7.1 % (0-10); NRBC Flagged by Analyzer 0 % (0-5); Neutrophil # 2.55 X10^3/uL (2.7-7.7); Neutrophil % 47.5 % (47-70); Platelet Count 255 K/mm3 (150-450); RBC Distribution Width CV 14.7 % (11.6-14.6); RBC Distribution Width SD 48.7 fl (35.1-43.9); Red Blood Count 4.38 M/mm3 (4.2-5.4); White Blood Count 5.4 K/mm3 (4.4-11.0)
[2022-07-11 11:13] LABS: Vitamin D,25 Hydroxy 32.1 ng/mL
[2022-07-11 11:18] LABS: Thyroid Stim Hormone (TSH) 0.97 uIU/mL (0.358-3.74)
== END | disposition home or self-care (01) ==
LOC: PAVLAB 10:28
PROVIDERS: Referring Provider Nurse Practitioner Women's Health; Visit Provider Nurse Practitioner Women's Health
DX: R53.83 Other fatigue (principal); Z13.29 Encounter for screening for other suspected endocrine disorder; F32.A Depression, unspecified; Z13.21 Encounter for screening for nutritional disorder
CPT/HCPCS: 36415; 82306; 84443; 85025

== ENCOUNTER → 2024-08-14 | Outpatient (CLI) | payer BC, SELFPAY ==
--- OUTSIDE RECORDS SUMMARY | 2024-08-14 22:30 | XMS RPT_ITS | CCD ---
Author Organization [facility] Care Team Providers Care Mis Director Name Role Phone Care Physician, No Primary Primary Care Provider Unavailable Care Physician, No Primary Referring Provider Un available Dr. My William Attending Provider Dr. Angelic Schneider Attending Provider [phone] Dr. Angelic Schneider Admit Provider [phone] Dr. Angelic Schneider Other Provider [phone] Vicenta BACKUP ENGINEER, BACKUP ENGINEER-C Luiza Attending Provider [phone] Care Physician, No Primary Primary Care Provider Unavailable Care Physician, No Primary Referring Provider Un available Vicenta BACKUP ENGINEER, BACKUP ENGINEER-C Luiza Attending Provider [phone] Care Physician, No Primary Referring Unava ilable Care Physician, No Primary Primary Care Unava ilable Vicenta BACKUP ENGINEERLuiza Attending Unavailable Care Physician, No Primary Primary Care Unava ilable Vicenta BACKUP ENGINEER, Luiza Attending Unavailable Care Physician, No Primary Referring Unava ilable Care Physician, No Primary Primary Care Unava ilable Vicetna BACKUP ENGINEERLuiza Attending Unavailable Care Physician, No Primary Referring Unava ilable Unavailable Primary Care Provider Unavailabl e Care Physician, No Primary Primary Care Provider Unavailable Care Physician, No Primary Referring Provider Un available Sahil WALSH-CGenesis Attending Provider [phone] Medications Current Medications Medication Drug Class(es) Dates Sig (Normalized) Sig (Original) brompheniramine maleate 0.4 mg/ml / dextromethorphan hydrobromide 2 mg/ml / pseudoephedrine hydrochloride 6 mg/ml oral solution (1 source) alpha-Adrenergic Agonist, Uncompetitive Q-yxsigz-W-aspartat e Receptor Antagonist, Sigma-1 Agonist Start: 01-30-2019 take 5-10 mL by mouth every six hours as needed Brompheniramine -Pseudoeph-DM (BROMFED DM) 2-30-10 mg/5 mL syrup Take 5-10 ml po q6h prn 150 mL 01/30/2019 Active citalopram 20 mg oral tablet (6 sources) Serotonin Reuptake Inhibitor Start: 11-08-2023 take 0.5 tablet by mouth once citalopram (CELEXA) 20 mg tablet Take 0.5 tablets by mouth every afternoon. 11/08/2023 Active Start: 08-22-2022 End: 11-08-2023 take 10 mg by mouth once daily Citalopram 20 mg tablet Active 10 mg PO DAILY 45 3 November 08, 2023 1:07pm Start: 07-11-2022 End: 08-22-2022 take 1 tablet by mouth once daily Citalopram (Celexa) 20 mg tablet Discontinued 20 mg PO DAILY 90 July 11, 2022 12:00am August 22, 2022 10:40am levonorgestrel 0.202979 mg/hr intrauterine system (2 sources) Progestin, Progestin-containing Intrauterine Device Start: 09-13-2021 Levonorgestrel (Mirena) 20 mcg/24 hours (7 yrs) 52 mg intrauterine device Active 1 NMA INTRA-UTER ONCE September 13, 2021 12:00am as a single dose Start: 09-13-2021 Levonorgestrel (Mirena) 20 mcg/24 hours (7 yrs) 52 mg intrauterine device Active 1 DEVICE INTRA-UTER ONCE September 13, 2021 12:00am as a single dose nitrofurantoin, macrocrystals 25 mg / nitrofurantoin, monohydrate 75 mg oral capsule (10 sources) Nitrofuran Antibacterial Start: 11-21-2023 End: 11-26-2023 take 1 capsule by mouth twice daily nitrofurantoin monohydrate and macrocrystal (MACROBID) 100 mg capsule Indications: Urinary frequency Take 1 capsule by mouth two times a day for 5 days. 10 capsule 11/21/2023 11/26/2023 Active Start: 01-14-2021 End: 04-07-2021 take 1 capsule by mouth once daily at mealtime Nitrofurantoin Monohyd/M-Cryst (Macrobid) 100 mg capsule Discontinued 100 mg PO DAILY January 14, 2021 1:00am April 07, 2021 11:12am Urinary tract infection in mother during Unspecified infection of urinary tract in , first trimester must administer with a meal/food Start: 09-23-2020 End: 09-30-2020 take 1 capsule by mouth twice daily at mealtime Nitrofurantoin Monohyd/M-Cryst (Macrobid) 100 mg capsule Discontinued 100 mg PO TWICE A DAY 14 7 0 September 23, 2020 12:00am September 29, 2020 12:00am September 30, 2020 12:01am must administer with a meal/food Start: 06-25-2019 End: 07-02-2019 take 1 capsule by mouth twice daily at mealtime Nitrofurantoin Monohyd/M-Cryst (Macrobid) 100 mg capsule Discontinued 100 mg PO TWICE A DAY 14 7 0 June 25, 2019 12:00am July 01, 2019 12:00am July 02, 2019 12:02am must administer with a meal/food Pnv Cmb#95-Ferrous Fumarate-Fa (2 sources) Start: 09-03-2019 take 1 tablet by mouth once daily Pnv Cmb#95-Ferrous Fumarate-Fa Active 1 TABLET PO DAILY September 03, 2019 1:13am Start: 09-03-2019 End: 07-11-2022 take 1 tablet by mouth once daily Pnv Cmb#95-Ferrous Fumarate-Fa Discontinued 1 TABLET PO DAILY September 03, 2019 12:00am July 11, 2022 9:59am PNV no.95/ferrous fum/folic ac ( ORAL) (1 source) PNV no.95/ferrou s fum/folic ac ( ORAL) Take by mouth. Active Vitamin B Complex (B Complex-Vitamin B12) tablet (2 sources) Start: 07-11-2022 Vitamin B Comp kassidy (B Complex-Vitamin B12) tablet Active 1 {tbl} PO DAILY July 11, 2022 12:00am Start: 07-11-2022 take 1 tablet by misa th once daily Vitamin B Complex (B Complex-Vitamin B12) tablet Active 1 TABLET PO DAILY July 11, 2022 12:00am Completed/Discontinued Medications Medication Drug Class(es) Dates Sig (Normalized) Sig (Original) acetaminophen 325 mg / oxyCODONE hydrochloride 5 mg oral tablet (6 sources) Opioid Agonist Start: 04-26-2021 End: 05-10-2021 Oxycodone-Acetamino phen (Percocet) 5-325 mg tablet Discontinued 1 {tbl} PO EVERY 6 HOURS as needed for pain 20 7 0 April 26, 2021 May 10, 2021 11:03am delivery delivered Encounter for delivery without indication Start: 09-03-2019 End: 09-06-2019 Oxycodone-Acetaminophen 1 TA BLET tablet Discontinued 1 {tbl} PO EVERY 4 HOURS NEEDED as needed for Pain 15 3 0 September 03, 2019 September 05, 2019 12:00am September 06, 2019 12:03am Calculus of kidney Calculus of kidney Start: 09-03-2019 End: 09-06-2019 take 1 tablet by mouth every four hours as needed Oxycodone-Acetaminophen Discontinued 1 TABLET PO EVERY 4 HOURS NEEDED 15 3 September 03, 2019 September 06, 2019 12:03am amoxicillin 500 mg oral capsule (8 sources) Penicillin-class Antibacterial Start: 11-14-2021 End: 11-24-2021 take 1 capsule by mouth twice daily Amoxicillin 500 mg capsule Discontinued 500 mg PO TWICE A DAY 20 10 0 November 14, 2021 12:00am November 23, 2021 12:00am November 24, 2021 12:04am Start: 03-29-2021 End: 06-17-2021 take 1 capsule by mouth once daily Amoxicillin 500 mg capsule Discontinued 500 mg PO DAILY April 26, 2021 10:22am June 17, 2021 1:46pm Aspirin (6 sources) Platelet Aggregation Inhibitor, Nonsteroidal Anti-inflammatory Drug Start: 04-26-2021 End: 06-17-2021 Aspirin Discontinued PO April 26, 2021 10:22am June 17, 2021 1:46pm Start: 04-26-2021 End: 06-17-2021 Aspirin 81 mg Tablet Discont inued PO April 26, 2021 12:00am June 17, 2021 1:46pm Start: 04-26-2021 End: 06-17-2021 Aspirin Discontinued PO Jose 2021 12:00am June 17, 2021 1:46pm Start: 01-19-2020 End: 09-21-2020 take 1 tablet by mouth once daily Aspirin 81 mg tablet,chewable Discontinued 81 mg PO DAILY January 19, 2020 1:00am September 21, 2020 11:49am COVID cefTRIAXone 250 mg injection (3 sources) Cephalosporin Antibacterial Start: 11-12-2019 End: 11-24-2019 inject 250 mg by intramuscular injection once Ceftriaxone 250 mg recon soln Discontinued 250 mg IM ONCE 1 0 November 12, 2019 12:00am November 24, 2019 8:28am cephalexin 500 mg oral capsule (15 sources) Cephalosporin Antibacterial Start: 01-14-2021 End: 01-21-2021 take 1 capsule by mouth every eight hours Cephalexin 500 mg capsule Discontinued 500 mg PO Q8H 21 7 0 January 14, 2021 2:05pm January 20, 2021 1:00am January 21, 2021 1:01am Urinary tract infection in mother during Unspecified infection of urinary tract in , first trimester Start: 12-28-2020 End: 01-04-2021 take 1 capsule by mouth twice daily Cephalexin 500 mg capsule Discontinued 500 mg PO TWICE A DAY 14 7 0 December 28, 2020 1:00am January 03, 2021 1:00am January 04, 2021 1:01am Start: 10-11-2020 End: 10-18-2020 take 1 capsule by mouth every eight hours Cephalexin 500 mg capsule Discontinued 500 mg PO Q8H 21 7 0 October 11, 2020 12:00am October 17, 2020 12:00am October 18, 2020 12:01am Start: 11-11-2019 End: 11-12-2019 take 1 capsule by mouth every six hours Cephalexin (Keflex) 500 mg capsule Discontinued 500 mg PO EVERY 6 HOURS 28 7 0 November 11, 2019 12:00am November 17, 2019 12:00am November 12, 2019 12:35pm Start: 08-19-2019 End: 11-24-2019 Cephalexin (Keflex) 500 mg c apsule Discontinued 500 mg PO .COMPLEX 60 7 2 August 19, 2019 12:00am November 24, 2019 8:35am 500 mg PO QID X 7 days then bid during ; famotidine 20 mg oral tablet (3 sources) Histamine-2 Receptor Antagonist Start: 01-19-2020 End: 03-22-2020 take 1 tablet by mouth once daily Famotidine (Pepcid) 20 mg tablet Discontinued 20 mg PO DAILY January 19, 2020 1:00am March 22, 2020 12:15pm heartburn ferrous sulfate 325 mg delayed release oral tablet (3 sources) Start: 11-24-2019 End: 03-22-2020 take 1 tablet by mouth once daily Ferrous Sulfate 325 mg (65 mg iron) tablet,delayed release (DR/EC) Discontinued 325 mg PO DAILY November 24, 2019 12:00am March 22, 2020 12:16pm anemia fluconazole 150 mg oral tablet (3 sources) Azole Antifungal Start: 03-29-2021 End: 04-14-2021 take 1 tablet by mouth once daily Fluconazole (Diflucan) 150 mg tablet Discontinued 150 mg PO DAILY 1 02 14March 29, 2021 1:00am April 14, 2021 12:46pm Infection due to Streptococcus agalactiae Streptococcal infection, unspecified site metroNIDAZOLE 500 mg oral tablet (3 sources) Nitroimidazole Antimicrobial Start: 10-19-2019 End: 10-26-2019 take 1 tablet by mouth twice daily Metronidazole (Flagyl) 500 mg tablet Discontinued 500 mg PO TWICE A DAY 14 7 0 October 19, 2019 12:00am October 25, 2019 12:00am October 26, 2019 12:03am naproxen 500 mg oral tablet (6 sources) Nonsteroidal Anti-inflammatory Drug Start: 04-26-2021 End: 05-10-2021 take 1 tablet by mouth twice daily as needed for pain Naproxen 500 MG tablet Discontinued 500 mg PO TWICE DAILY NEEDED as needed for Pain 30 April 26, 2021 12:00am May 10, 2021 11:03am Start: 02-09-2020 End: 03-22-2020 take 250-500 mg by mouth every eight hours as needed for pain Naproxen 250 MG tablet Discontinued 250 - 500 mg PO EVERY 8 HOURS NEEDED as needed for MILD PAIN 30 February 09, 2020 1:00am March 22, 2020 12:16pm ondansetron 4 mg disintegrating oral tablet (3 sources) Serotonin-3 Receptor Antagonist Start: 09-03-2019 End: 11-24-2019 take 2 tablets by mouth every eight hours as needed for nausea Ondansetron 4 MG tablet Discontinued 8 mg PO EVERY 8 HOURS NEEDED as needed for Nausea September 03, 2019 12:00am November 24, 2019 8:35am Start: 09-03-2019 End: 11-24-2019 take 8 mg by mouth every eight hours as needed Ondansetron Discontinued 8 MG PO EVERY 8 HOURS NEEDED September 03, 2019 2:24am November 24, 2019 8:35am oxyCODONE hydrochloride 5 mg oral tablet (3 sources) Opioid Agonist Start: 02-09-2020 End: 02-16-2020 take 1 tablet by mouth every six hours as needed for pain Oxycodone 5 MG tablet Discontinued 5 mg PO EVERY 6 HOURS NEEDED as needed for Pain Score 6-10/10 15 7 0 February 09, 2020 February 15, 2020 1:00am February 16, 2020 1:02am Status post delivery History of uterine scar from previous surgery Pnv Cmb#95-Ferrous Fumarate-Fa 1 EACH tablet (1 source) Start: 09-03-2019 End: 07-11-2022 Pnv Cmb#95-Ferrous Fumarate-Fa 1 EACH tablet Discontinued 1 {tbl} PO DAILY September 03, 2019 12:00am July 11, 2022 9:59am sertraline 50 mg oral tablet (4 sources) Serotonin Reuptake Inhibitor Start: 08-16-2021 End: 07-11-2022 take 1 tablet by mouth once daily Sertraline (Zoloft) 50 mg tablet Discontinued 50 mg PO DAILY 90 3 September 13, 2021 10:53am July 11, 2022 10:05am terconazole 4 mg/ml vaginal cream (3 sources) Azole Antifungal Start: 04-18-2021 End: 04-25-2021 Terconazole 0.4 % cream Discontinued 1 NMA VAGINAL AT BEDTIME 45 7 0 April 18, 2021 1:00am April 24, 2021 1:00am April 25, 2021 12:03am Start: 04-18-2021 End: 04-25-2021 Terconazole Discontinued 1 A PPFUL VAGINAL AT BEDTIME 45 7 April 18, 2021 7:00am April 25, 2021 12:03am Problems Problem Classification Problem Date Documented Date Episodic/Chronic Anxiety disorders (2 sources) Anxiety; Translations: [Anxiety disorder, unspecified] 08-14-2024 Chronic Calculus of urinary tract (6 sources) Ureteric colic; Translations: [Unspecified renal colic] 09-04-2019 Episodic Comment on above: passed spontaneously Contraceptive and procreative management (1 source) Patient encounter status; Translations: [Encounter for contraceptive management, unspecified] Episodic Deficiency and other anemia (3 sources) Anemia; Translations: [Anemia, unspecified] 07-05-2021 Episodic Comment on above: repeat cbc this am d ue to hypotension stable. iron supplement. Deficiency and other anemia (2 sources) Anemia, unspecified; Translations: [Anemia, unspecified] Episodic Genitourinary symptoms and ill-defined conditions (6 sources) History of recurrent urinary tract infection; Translations: [Personal history of urinary (tract) infections] Episodic Immunizations and screening for infectious disease (3 sources) Contact with or exposure to other viral diseases; Translations: [Lab test negative for COVID-19 virus] 02-11-2020 Episodic Comment on above: 01/26/20 Malaise and fatigue (3 sources) Fatigue; Translations: [Other fatigue] 07-11-2022 Episodic Comment on above: labs Miscellaneous mental health disorders (2 sources) depression; Translations: [ depression] 07-11-2022 Episodic Mood disorders (4 sources) Depressive disorder; Translations: [Depression] Onset: 08-22-2022 07-11-2022 Chronic Comment on above: celexa Nonmalignant breast conditions (3 sources) Breast lump; Translations: [Unspecified lump in unspecified breast] 04-27-2021 Episodic Comment on above: BENIGN. Lump noted i n left lower outer quadrant of breast. 2cm in size and mobile. Ultrasound BIRADS 4. 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- patient to follow up w/ [facility] after Other complications of ; puerperium affecting management of mother (1 source) delivery - delivered; Translations: [Encounter for delivery without indication] Episodic Other complications of ; puerperium affecting management of mother (2 sources) Deliveries by ; Translations: [Encounter for delivery without indication] 05-03-2021 Episodic Comment on above: SM RLTCS girl 38 Emo ry Other complications of (3 sources) Anemia of ; Translations: [Anemia complicating , unspecified trimester] 04-26-2021 Chronic Comment on above: iron added Other complications of (7 sources) Anemia complicating , unspecified trimester; Translations: [Anemia of mother, unspecified as to episode of care or not applicable] Chronic Other complications of (3 sources) Disease caused by 2019-nCoV; Translations: [Other viral diseases complicating , unspecified trimester] 04-26-2021 Episodic Comment on above: Baby ASA; growth US at 36 weeks normal Other complications of (3 sources) Finding of pattern of ; Translations: [Supervision of other high risk pregnancies, unspecified trimester] 04-26-2021 Episodic Comment on above: previous delivery Other complications of (3 sources) Urinary tract infection in ; Translations: [Unspecified infection of urinary tract in , unspecified trimester] 04-26-2021 Episodic Comment on above: 11/02/20 Culture kristan f culture 12/28 pos, 01/14 poson prophylactic medication for rest of - plan to stop macrobid at 36 weeks. pt may want to take nothing the last week rather than switching to amoxicillin to prevent further issues (ex yeast infections) Other complications of (7 sources) Other viral diseases complicating , unspecified trimester; Translations: [Other viral diseases in the mother, antepartum condition or complication] Episodic Other complications of (7 sources) Supervision of other high risk pregnancies, unspecified trimester; Translations: [Supervision of other high-risk ] Episodic Other complications of (7 sources) Unspecified infection of urinary tract in , unspecified trimester; Translations: [Infections of genitourinary tract in , unspecified as to episode of care or not applicable] Episodic Other and delivery including normal (20 sources) Normal ; Translations: [Encounter for supervision of normal , unspecified, unspecified trimester] Episodic Comment on above: PRR ARMANDO 0 girl [place] Ritchie PRR ARMANDO: 2 girl [place] [facility]: [place] Spouse: Ritchie declined genetic, ca rrier, and ntd screening. anatomy us nl at [facility]. nl anatomy, declines carrier, genetic and NTD Residual codes; unclassified (3 sources) Gestation period, 35 weeks; Translations: [35 weeks gestation of ] 02-11-2020 Episodic Comment on above: electronic covid lorna t ordered 12/31/2019 (scheduled for 01/26/20 @ 0955) Residual codes; unclassified (3 sources) History of vaccination; Translations: [Personal history of other drug therapy] 03-22-2021 Episodic Comment on above: 02/08/21 Residual codes; unclassified (7 sources) History of uterine scar from previous surgery; Translations: [Other postprocedural status] Episodic Residual codes; unclassified (2 sources) Personal history of other drug therapy; Translations: [Other postprocedural status] Episodic Viral infection (3 sources) COVID-19; Translations: [Severe acute respiratory syndrome coronavirus 2 (SARS-CoV-2) detected] 02-11-2020 Episodic Comment on above: Start baby ASA; grow th scan on Results Test Name Value Interpretation Reference Range Facility Bacteria Ur Culton 4 Bacteria identified Cx Nom (U) ORGANISM ID: 1 >=100,000 CFU/ml Staphylococcus saprophyticus Routine susceptibility testing of S. saprophyticus urine isolates is not performed because uncomplicated UTIs respond to urine concentrations of agents commonly used (e.g. Nitrofurantoin, TMP/SMX, or a quinolone). Normal [facility] Comment on above: Performed By: #### 6 30-4 #### [facility] CLIA [id number] [address] [place] [address] [place] CNOVon 11-21-2023 CNOV Office Visit (UCWSTR) JEFRY OLEARY ([id number]) 1990 F Date Time Provider Department 11/21/23 12:45 PM [facility] C[facility] During your visit today, we recorded the following information about you: Temperature Pulse Respiration Blood pressure 97.5 degrees 74/minute 16/minute 118/70 Weight 70 kg Kiana Campos APRN.BIRD KEEPER 11/21/2023 12:54 PM Signed Subjective HPI Jefry Oleary is a 33 year old female who presents with 4 days of urinary frequency and dysuria. She has had some low back pain. No fever or chills. Had some nausea last night after eating but it resolved. She has not taken any medication for her symptoms. LMP was 2 weeks ago. She denies concern for STDs. Review of Systems Constitutional: Negative for chills and fever. Respiratory: Negative. Cardiovascular: Negative. Gastrointestinal: Negative for abdominal pain, nausea and vomiting. Genitourinary: Positive for dysuria and frequency. Negative for hematuria. Musculoskeletal: Positive for back pain. BP 118/70 Pulse 74 Temp 36.4 ?C (97.5 ?F) Resp 16 Wt 70 kg (154 lb 5.2 oz) LMP 12/28/2013 SpO2 98% BMI 26.49 kg/m? 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 MEDICATIONS citalopram (CELEXA) 20 mg tablet Take 0.5 tablets by mouth every afternoon. PNV no.95/ferrous fum/folic ac ( ORAL) Take by mouth. (Patient not taking: Reported on 11/21/2023) Brompheniramine-Pseu doeph-DM (BROMFED DM) 2-30-10 mg/5 mL syrup Take 5-10 ml po q6h prn (Patient not taking: Reported on 06/07/2020 ) FAMILY HISTORY Problem Relation Age of Onset Hypertension Maternal Grandmother None Mother None Father None Sister None Sister None Brother Social History Tobacco Use Smoking status: Some Days Types: Cigarettes Smokeless tobacco: Never Tobacco comments: rarely smokes now Substance Use Topics Alcohol use: No Drug use: No Objective Physical Exam Vitals and nursing note reviewed. Constitutional: General: She is not in acute distress. Appearance: Normal appearance. She is not ill-appearing. Cardiovascular: Rate and Rhythm: Normal rate and regular rhythm. Heart sounds: Normal heart sounds. Pulmonary: Effort: Pulmonary effort is normal. No respiratory distress. Breath sounds: Normal breath sounds. No wheezing or rales. Abdominal: General: There is no distension. Palpations: Abdomen is soft. There is no mass. Tenderness: There is abdominal tenderness in the suprapubic area. There is no right CVA tenderness, left CVA tenderness or guarding. Skin: General: Skin is warm and dry. Neurological: Mental Status: She is alert. ASSESSMENT/PLAN: 1. Urinary frequency - ICD9: 788.41, ICD10: R35.0 acute - UA positive for [place] esterase and hematuria - Send urine for culture - Begin treatment with Macrobid 100 mg BID for 5 days - UA DIP, URINE (POC) - URINE CULTURE - NITROFURANTOIN MONOHYDRATE AND MACROCRYSTAL 100 MG ORAL CAP - Follow-up with your PCP in 3-5 days if symptoms have not improved or sooner if symptoms worsen - Discussed red flags and need for immediate medical evaluation if any occur. - Discussed supportive care treatment with fluids, rest and analgesia. - Discussed expected course of illness GERRY Lemus Kathy, APRN.CNP 11/21/2023 12:53 PM Signed ASSESSMENT/PLAN: 1. Urinary frequency - ICD9: 788.41, ICD10: R35.0 acute - UA positive for [place] esterase and hematuria - Send urine for culture - Begin treatment with Macrobid 100 mg BID for 5 days - UA DIP, URINE (POC) - URINE CULTURE - NITROFURANTOIN MONOHYDRATE AND MACROCRYSTAL 100 MG ORAL CAP - Follow-up with your PCP in 3-5 days if symptoms have not improved or sooner if symptoms worsen - Discussed red flags and need for immediate medical evaluation if any occur. - Discussed supportive care treatment with fluids, rest and analgesia. - Discussed expected course of illness Kiana Campos APRN.CNP [facility] PATIENT INFO BLADDER INFECTION OVERVIEW Bladder infections are one of the most common infections, causing symptoms of burning with urination and needing to urinate frequently. A bladder infection is a type of urinary tract infection (UTI). Bladder infections are more common is women than men. Most women have an uncomplicated bladder infection that is easily treated with a short course of antibiotics. In men, bladder infections may also affect the prostate gland, and a longer course of treatment may be needed. BLADDER INFECTION CAUSES The urinary tract includes the kidneys (which (more content not included)... Normal [facility] UA DIP, URINE (POC)on 2023 BILIRUBIN UA (POCT) Negative Negative [facility] CLARITY UA (POCT) Cloudy [facility] COLOR UA (POCT) Light yellow [facility] GLUCOSE UA (POCT) Negative Negative mg/dL [facility] Hemoglobin Ql (U) Negative Negative [facility] Interpretation and review of laboratory results Abnormal [facility] KETONE UA (POCT) Negative Negative mg/dL [facility] LEUKOCYTES UA (POCT) Small Abnormal Negative [facility] NITRITE UA (POCT) Negative Negative [facility] PH UA (POCT) 7.0 4.5 - 8.0 [facility] Protein Ql (U) Trace Abnormal Negative mg/dL [facility] SPECIFIC GRAVITY UA (POCT) 1.020 1.005 - 1.030 [facility] UROBILINOGEN UA (POCT) 0.2 Normal E.U./d L [facility] Location:[address], [place], [place], [id number] [place] [address] POINT OF CARE [facility] Hand Ii Cutter Office Visit Reporton 08-14-2023 Hand Ii Cutter Office Visit Report [facility] 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 Complaint: Annual Exploration Driller Required: No Is patient in pain?: No Allergies No Known Allergies Allergy (Verified 08/14/23 09:18) Medications ???Medication ???Instructions ???Recorded ???Confirmed ???Type levonorgestrel 21 mcg/24 hr (up to 1 device intrauterine ONCE 09/13/21 08/14/23 History 8 years) 52 mg intrauterine device (Mirena) vitamin B complex (B 1 tab PO DAILY 07/11/22 08/14/23 History Complex-Vitamin B12 tablet) citalopram 20 mg tablet 10 mg (1/2 x 20 mg) PO DAILY #45 08/14/23 08/14/23 Rx tabs Is last menstrual period known: Yes Last Menstrual Period: 08/11/23 Post menopausal: No Patient : No : No Control Method: Mirena IUD [facility] Medical History depression delivery delivered H/O recurrent urinary tract infection Supervision of other normal Recurrent UTI Breast lump Erythema nodosum Surgical History H/O oophorectomy H/O section History of primary section Family History Grandfather Leukemia Grandmother Hypertension Social History Smoking Status: Former smoker alcohol intake: never substance use type: does not use caffeine: Yes what type of physical activity do you participate in: none seatbelt use: always do you feel safe at home: Yes additional social history: - [facility] Patient works at [employer] History 2 Elective abortions Hx Para 2 Spontaneous abortions Hx # Term Pregnancies 2 Ectopic pregnancies Hx # Pregnancies Multiple births # of living children 2 Past Pregnancies Del. Date Name GA/Weeks Outcome Route Bth Weight Gen Labor Lgth Anesthesia Del Locatn Provider FOB 02/02/20 Cheyenne Gomez live - full term Female [facility] Pr okop 04/26/21 [place] live - full term Female [facility] Carole rcanthony Delivery Date: 02/02/20 Last Updated by: Josefa Hopkins primary csection for arrest of dilation. Had intrapartum intraamniotic infection. Baby transported to [facility] possible meconium aspiration Delivery Date: 04/26/21 Last Updated by: Josefa Hopkins RLTCS right partial oophorectomy ovarian thecoma, left sigmoid ovarian fallopian tube adhesions HPI Encounter for routine gynecological examination Details: JEFRY OLEARY is a 33 year old who presents for annual exam. Light menses each month with mirena. Breast pain seen for last month resolved with menses. 2 weeks ago had RLQ pain x 1 hour with bright spotting X 1 and nothing since Last PAP: 2020 History of abnormal PAP: no Last mammogram: age 39 Female Reproductive History Last Menstrual Period: 08/11/23 Cycle Length: 21-35 ROS Const Constitutional: Denies fatigue, weight gain or weight loss Cardio Card: Denies chest pain Resp Resp: Denies cough or dyspnea on exertion GI GI: Denies abdominal pain, bloating, change in stool character, constipation or vomiting : Reports as per HPI; Denies difficulty voiding, pelvic pain, urinary frequency, urinary incontinence, urinary urgency, vaginal discharge or vaginal pruritus Exam Const General: cooperative, healthy appearing, no acute distress and well developed Orientation: alert, oriented to person and oriented to place HENMT Head: normal to inspection Neck Neck: normal visual inspection Thyroid: thyroid normal Lymphatic: no lymphadenopathy noted Chest Breast inspection: normal inspection of the breasts and normal inspection of the axillae Breast palpation: normal palpation of the breasts, normal palpation of the axillae and no axillary lymphadenopathy Resp Effort Inspection: normal respiratory effort GI Palpation: soft, no masses and nontender Rectal Exam: deferred External Female Exam: normal external appearance and normal appearance of the urethra Urethra: normal appearance of the urethra and normal palpation Speculum Exam - Vagina: normal appearance of the vagina and normal vaginal discharge Speculum E (more content not included)... Normal [facility] Hand Ii Cutter Office Visit Reporton 07-17-2023 Hand Ii Cutter Office Visit Report [facility] [address] [place] [address] OFFICE VISIT Date of Service: 07/17/23 MR#: [id number] Acct: [id number] Name: JEFRY OLEARY Rep #: [id number] : 1990 Provider: TARYN vargas Age/Sex: 33/F Location: [facility] – [place], [place] Status: Signed Intake Vital Signs 08/22/22 10:30 07/17/23 11:43 07/17/23 11:48 Height 5 ft 4 in 5 ft 4 in 5 ft 4 in Weight: 143 lb 145 lb 2 oz BMI 24.5 24.9 BP 106/70 108/68 Intake Visit Reasons: LUMP IN RIGHT BREAST Chief Complaint: Lump in R breast Exploration Driller Required: No Is patient in pain?: No Allergies No Known Allergies Allergy (Verified 07/17/23 11:43) Medications ???Medication ???Instructions ???Recorded ???Confirmed ???Type levonorgestrel 21 mcg/24 hr (up to 1 device intrauterine ONCE 09/13/21 07/17/23 History 8 years) 52 mg intrauterine device (Mirena) vitamin B complex (B 1 tab PO DAILY 07/11/22 07/17/23 History Complex-Vitamin B12 tablet) citalopram 20 mg tablet 10 mg (1/2 x 20 mg) PO DAILY #30 08/22/22 07/17/23 Rx tabs Is last menstrual period known: Yes Last Menstrual Period: 07/20/23 Post menopausal: No Patient : No : No PFSH Medical History depression delivery delivered H/O recurrent urinary tract infection Supervision of other normal Recurrent UTI Breast lump Erythema nodosum Surgical History H/O oophorectomy H/O section History of primary section Family History Grandfather Leukemia Grandmother Hypertension Social History Smoking Status: Former smoker alcohol intake: never substance use type: does not use caffeine: Yes what type of physical activity do you participate in: none seatbelt use: always do you feel safe at home: Yes additional [facility]: - [facility] Patient works at [employer] HPI LUMP IN RIGHT BREAST Details: JEFRY OLEARY is a 33 year old who presents for noted painful nodule in right breast 5 days ago. Started menses next day and now pain has resolved and can't feel nodule as much. No longer breast feeding. Denies other concerns Female Reproductive History Last Menstrual Period: 07/20/23 History 2 Elective abortions Hx Para 2 Spontaneous abortions Hx # Term Pregnancies 2 Ectopic pregnancies Hx # Pregnancies Multiple births # of living children 2 Past Pregnancies Del. Date Name GA/Weeks Outcome Route Bth Weight Infant Gen Labor Lgth Anesthesia Del Locatn Provider FOB 02/02/20 Cheyenne 40 live - full term Female [facility] Pr okop 04/26/21 [place] live - full term Female [facility] Ma rcanthony Delivery Date: 02/02/20 Last Updated by: Josefa Hopkins primary csection for arrest of dilation. Had intrapartum intraamniotic infection. Baby transported to [facility] possible meconium aspiration Delivery Date: 04/26/21 Last Updated by: Josefa Hopkins RLTCS right partial oophorectomy ovarian thecoma, left sigmoid ovarian fallopian tube adhesions ROS Const Constitutional: Reports system reviewed and no additional complaints, except as documented : Reports system reviewed and no additional complaints, except as documented Skin Skin/Breast: Reports as per HPI Psych Psych: Reports system reviewed and no additional complaints, except as documented Exam Const General: cooperative and no acute distress Orientation: oriented x3 HENMT Head: normal to inspection Neck Neck: normal visual inspection Chest Breast inspection: normal inspection of the breasts and normal inspection of the axillae Breast palpation: normal palpation of the breasts (generalized nodularities noted bilaterally. No definitive mass) and normal palpation of the axillae Resp Effort Inspection: normal respiratory effort Coding Level of Care Code Off vis,est,level 3 Diagnoses Fibrocystic disease of right breast N60.11 Laterality: right Assessment and Plan Assessment and Plan (1) Fibrocystic breast: Qualifiers: Laterality: right Qualified Code(s): N60.11 - Diffuse cystic mastopathy of right breast Plan Will monitor. Probably related to menses. Will call if pain or mass occurs and will get imaging. 07/17/23 1201 Date Luiza Yadav NP BACKUP ENGINEER-C Cosigner Signature: Date (if applicable) CC: Normal [facility] Hand Ii Cutter Office Visit Reporton 08-22-2022 Hand Ii Cutter Office Visit Report [facility] [address] [place] [address] OFFICE VISIT Date of Service: 08/22/22 MR#: [id number] Acct: [id number] Name: JEFRY OLEARY Rep #: [id number] : 1990 Provider: TARYN vargas Age/Sex: 32/F Location: [facility] [place], [place] Status: Signed Intake Vital Signs 07/11/22 10:00 08/22/22 10:30 Height 5 ft 4 in 5 ft 4 in Weight: 143 lb BMI 24.5 BP 106/70 Intake Visit Reasons: 4 wk fu Chief Complaint: 4 Week F/u Exploration Driller Required: No Is patient in pain?: No Allergies No Known Allergies Allergy (Verified 08/22/22 10:28) Medications levonorgestrel 21 mcg/24 hours (8 yrs) 52 mg intrauterine device (Mirena) 1 device intrauterine ONCE 09/13/21 [History Confirmed 08/22/22] vitamin B complex (B Complex-Vitamin B12 tablet) 1 tab PO DAILY 07/11/22 [History Confirmed 08/22/22] citalopram 20 mg tablet 10 mg (1/2 x 20 mg) PO DAILY #30 tabs 08/22/22 [Rx Confirmed 08/22/22] Is last menstrual period known: No Post menopausal: No Patient : No : No Nurse's Note: No LMP d/t mirena IUD. [facility] Medical History (Updated 08/22/22 @ 10:59 by Luiza Yadav NP, TARYN) Breast lump delivery delivered Erythema nodosum H/O recurrent urinary tract infection depression Recurrent UTI Supervision of other normal Surgical History H/O section H/O oophorectomy History of primary section Family History Grandfather Leukemia Grandmother Hypertension Social History Smoking Status: Former smoker alcohol intake: never substance use type: does not use caffeine: Yes what type of physical activity do you participate in: none seatbelt use: always do you feel safe at home: Yes additional social history: - [employer] Patient works at [employer] HPI 4 wk fu Details: JEFRY OLEARY is a 32 year old who presents for follow up change from zoloft to celexa. Was taking 20mg daily and still feeling lack of energy, tired all the time. Just over a week ago reduced to half tab daily and felt great so decided to wean off thinking would feel good without. She has not take medication X 3 days and last night feeling anxious and more irritable. History 2 Elective abortions Hx Para 2 Spontaneous abortions Hx # Term Pregnancies 2 Ectopic pregnancies Hx # Pregnancies Multiple births # of living children 2 Past Pregnancies Del. Date Name GA/Weeks Outcome Route Bth Weight Gen Labor Lgth Anesthesia Del Locatn Provider FOB 02/02/20 Cheyenne 41 live - full term Female [facility] Pr okop 04/26/21 [place] live - full term Female [facility] Ma rcanthony Delivery Date: 02/02/20 Last Updated by: Josefa Hopkins primary csection for arrest of dilation. Had intrapartum intraamniotic infection. Baby transported to [facility] possible meconium aspiration Delivery Date: 04/26/21 Last Updated by: Josefa Hopkins RLTCS right partial oophorectomy ovarian thecoma, left sigmoid ovarian fallopian tube adhesions ROS Const Constitutional: Reports as per HPI Psych Psych: Reports as per HPI Exam Const General: cooperative and no acute distress Orientation: oriented x3 HENMT Head: normal to inspection and normocephalic Eyes General: appearance normal, both eyes and all related structures Neck Neck: normal visual inspection Resp Effort Inspection: normal respiratory effort Neuro Cognition: normal cognition Speech: speech normal Psych Appearance: grossly normal Mood: congruent mood Affect: normal affect Speech and Movement: speech and movement normal Attitude: cooperative Judgment: judgment good Coding Level of Care Code Off vis,est,level 3 Diagnoses Other depression F32.89 Depression Type: other depression Assessment and Plan Assessment and Plan (1) Depression: Status: Acute Qualifiers: Depression Type: other depression Qualified Code(s): F32.89 - Other specified depressive episodes Comment: celexa Medications: New citalopram 10 mg (1/2 x 20 mg) PO DAILY 30 tabs 6RF Plan Continue celexa 10mg daily. New Rx sent Counseling encouraged RTO prn, annual exam 08/22/22 1100 Date Luiza Yadav BACKUP ENGINEER BACKUP ENGINEER-C Cosigner Signature: Date (if applicable) CC: Normal [facility] Absolute lymphocyte countOrd ered By: Luiza Yadav on 07-11-2022 Lymphocytes Auto (Unsp spec) [#/Vol] 2.25 10*3/uL 0.83-4.51 [facility] Basophil percentageOrdered B y: Luiza Yadav on 07-11-2022 Basophils/100 WBC (Bld) 0.4 % 0-1 [facility] Eosinophils/100 WBC (Bld) 2.8 % 0-5 [facility] Neutrophils (Bld) [#/Vol] 2.6 10*3/uL 2.0-7.7 [facility] Neutrophils/100 WBC (Bld) 47.5 % 47-70 [facility] WBC (Bld) [#/Vol] 5.4 10*3/uL 4.4-11.[address] [facility] Blood erythrocytes count (nu mber/volume)Ordered By: Luiza Yadav on 07-11-2022 RBC (Bld) [#/Vol] 4.38 10*6/uL 4.2-5.4 [facility] Blood hemoglobin measurement (mass/volume)Ordered By: Luiza Yadav on 07-11-2022 Hemoglobin (Bld) [Mass/Vol] 12.5 g/dL 12.0-15.0 [facility] Blood lymphocytes/100 leukoc ytesOrdered By: Luiza Yadav on 07-11-2022 Lymphocytes/100 WBC (Bld) 42.0 % 19-41 [facility] Blood monocytes/100 leukocyt esOrdered By: Luiza Yadav on 07-11-2022 Monocytes/100 WBC (Bld) 7.1 % 0-10 [facility] Blood platelet mean volumeOr dered By: Luiza Yadav on 07-11-2022 Platelet mean volume (Bld) [Entitic vol] 9.8 fL 6.2-12.0 [facility] Determination of erythrocyte mean corpuscular volume (MCV)Ordered By: Luiza Yadav on 07-11-2022 MCV (RBC) [Entitic vol] 90.0 fL 81-99 [facility] Hematocrit Auto (Bld) [Volum e fraction]Ordered By: Luiza Yadav on 07-11-2022 Hematocrit (Bld) [Volume fraction] 39.4 % 37-47 [facility] Laboratory - Hematology and Cell countsOrdered By: Luiza Yadav on 07-11-2022 Erythrocyte distribution width (RBC) [Entitic vol] 48.7 fL 35.1-43.9 [facility] Erythrocyte distribution width (RBC) [Ratio] 14.7 % 11.6-14.6 [facility] Immature granulocytes/100 WBC (Bld) 0.200 % 0.0-0.9 [facility] Comment on above: IG% - Immature Granu locytes (promyelocytes, myelocytes and metamyelocytes) > 1% indicates that a LEFT SHIFT is Present. MCH (RBC) [Entitic mass] 28.5 pg 27.0-32.0 [facility] Nucleated RBC/100 WBC (Bld) [Ratio] 0 % 0-5 [facility] MCHC Auto (RBC) [Mass/Vol]Or dered By: Luiza Yadav on 07-11-2022 MCHC (RBC) [Mass/Vol] 31.7 g/dL 32-36 [place] No Panel InformationOrdered By: Luizakervin Yadav on 07-11-2022 Thyroid Stimulating Hormone (TSH) 0.97 uIU/mL 0.358-3.74 [facility] Vitamin D 25-Hydroxy 32.1 ng/mL [facility] Comment on above: Vitamin D 25(OH) Sta tus Range Deficiency <20 ng/mL (50nmol/L) Insufficiency 20 - 30 ng/mL (50 - 75 nmol/L) Sufficiency 30 - 100 ng/mL (75 - 250 nmol/L) Toxicity >100 ng/mL (>250 nmol/L) Platelets bldOrdered By: Cynthia Yadav on 07-11-2022 Platelets (Bld) [#/Vol] 255 10*3/uL 150-450 [facility] Absolute lymphocyte counton 06-17-2021 Lymphocytes Auto (Unsp spec) [#/Vol] 2.65 10*3/uL 0.83-4.51 [facility] Work Phone: Basophil percentageon 2021 Basophils/100 WBC (Bld) 0.4 % 0-1 [facility] Work Phone: [phone] Eosinophils/100 WBC (Bld) 1.8 % 0-5 [facility] Work Phone: Neutrophils (Bld) [#/Vol] 3.6 10*3/uL 2.0-7.7 [facility] Work Phone: Neutrophils/100 WBC (Bld) 52.9 % 47-70 [facility] Work Phone: WBC (Bld) [#/Vol] 6.8 10*3/uL 4.4-11.[address] [facility] Work Phone: [phone] Blood erythrocytes count (nu mber/volume)on 06-17-2021 RBC (Bld) [#/Vol] 3.75 10*6/uL 4.2-5.4 [facility] Work [facility]: [phone] Blood hemoglobin measurement (mass/volume)on 06-17-2021 Hemoglobin (Bld) [Mass/Vol] 10.6 g/dL 12.0-15.0 [facility] Work Phone: [phone] Blood lymphocytes/100 leukoc yteson 06-17-2021 Lymphocytes/100 WBC (Bld) 39.0 % 19-41 [facility] Work Phone: Blood monocytes/100 leukocyt eson 06-17-2021 Monocytes/100 WBC (Bld) 5.6 % 0-10 [facility] Work Phone: Blood platelet mean volumeon 06-17-2021 Platelet mean volume (Bld) [Entitic vol] 9.6 fL 6.2-12.0 [facility] Work Phone: Determination of erythrocyte mean corpuscular volume (MCV)on 06-17-2021 MCV (RBC) [Entitic vol] 89.3 fL 81-99 [facility] Work Phone: Hematocrit Auto (Bld) [Volum e fraction]on 06-17-2021 Hematocrit (Bld) [Volume fraction] 33.5 % 37-47 [facility] Work Phone: Laboratory - Hematology and Cell countson 06-17-2021 Erythrocyte distribution width (RBC) [Entitic vol] 45.1 fL 35.1-43.9 [facility] Work Phone: Erythrocyte distribution width (RBC) [Ratio] 13.8 % 11.6-14.6 [facility] Work Phone: Immature granulocytes/100 WBC (Bld) 0.300 % 0.0-0.9 [facility] Work Phone: Comment on above: IG% - Immature Granu locytes (promyelocytes, myelocytes and metamyelocytes) > 1% indicates that a LEFT SHIFT is Present. MCH (RBC) [Entitic mass] 28.3 pg 27.0-32.0 [facility] Work Phone: Nucleated RBC/100 WBC (Bld) [Ratio] 0 % 0-5 [facility] Work Phone: MCHC Auto (RBC) [Mass/Vol]on 06-17-2021 MCHC (RBC) [Mass/Vol] 31.6 g/dL 32-36 [facility] Work Phone: Platelets bldon 06-17-2021 Platelets (Bld) [#/Vol] 342 10*3/uL 150-450 [facility] Work Phone: Absolute lymphocyte counton 04-28-2021 Lymphocytes Auto (Unsp spec) [#/Vol] 1.99 10*3/uL 0.83-4.51 [facility] Work Phone: Basophil percentageon 2021 Basophils/100 WBC (Bld) 0.1 % 0-1 [facility] Work Phone: [phone] Eosinophils/100 WBC (Bld) 0.9 % 0-5 [facility] Work Phone: [phone] Neutrophils (Bld) [#/Vol] 6.9 10*3/uL 2.0-7.7 [facility] Work Phone: [phone] Neutrophils/100 WBC (Bld) 72.1 % 47-70 [facility] Work Phone: WBC (Bld) [#/Vol] 9.6 10*3/uL 4.4-11.[address] [facility] Work Phone: Blood erythrocytes count (nu mber/volume)on 04-28-2021 RBC (Bld) [#/Vol] 2.58 10*6/uL 4.2-5.4 [facility] Work Phone: Blood hemoglobin measurement (mass/volume)on 04-28-2021 Hemoglobin (Bld) [Mass/Vol] 7.9 g/dL 12.0-15.0 [facility] Work Phone: [phone] Blood lymphocytes/100 leukoc yteson 04-28-2021 Lymphocytes/100 WBC (Bld) 20.6 % 19-41 [facility] Work Phone: [phone] Blood monocytes/100 leukocyt eson 04-28-2021 Monocytes/100 WBC (Bld) 5.7 % 0-10 [facility] Work Phone: Blood platelet mean volumeon 04-28-2021 Platelet mean volume (Bld) [Entitic vol] 10.5 fL 6.2-12.0 [facility] Work Phone: Determination of erythrocyte mean corpuscular volume (MCV)on 04-28-2021 MCV (RBC) [Entitic vol] 94.2 fL 81-99 [facility] Work Phone: Hematocrit Auto (Bld) [Volum e fraction]on 04-28-2021 Hematocrit (Bld) [Volume fraction] 24.3 % 37-47 [facility] Work Phone: Laboratory - Hematology and Cell countson 04-28-2021 Erythrocyte distribution width (RBC) [Entitic vol] 53.1 fL 35.1-43.9 [facility] Work Phone: Erythrocyte distribution width (RBC) [Ratio] 15.6 % 11.6-14.6 [facility] Work Phone: Immature granulocytes/100 WBC (Bld) 0.600 % 0.0-0.9 [facility] Work Phone: Comment on above: IG% - Immature Granu locytes (promyelocytes, myelocytes and metamyelocytes) > 1% indicates that a LEFT SHIFT is Present. MCH (RBC) [Entitic mass] 30.6 pg 27.0-32.0 [facility] Work Phone: Nucleated RBC/100 WBC (Bld) [Ratio] 0 % 0-5 [facility] Work Phone: MCHC Auto (RBC) [Mass/Vol]on 04-28-2021 MCHC (RBC) [Mass/Vol] 32.5 g/dL 32-36 [facility] Work Phone: Platelets bldon 04-28-2021 Platelets (Bld) [#/Vol] 200 10*3/uL 150-450 [facility] Work Phone: Gram stain for investigation of transfusion reactionon 04-14-2021 Microscopic observation Gram stain Nom (Unsp spec) [facility] Work Phone: Laboratory - Chemistry and C hemistry - challengeon 04-14-2021 Glucose Ql (U) Negative [facility] Work Phone: Laboratory - Urinalysison Protein Ql (U) Negative [facility] Work Phone: Thin prep Papanicolaou smear with manual screeningon 04-14-2021 Genital Culture Presumptive C albicans [facility] Work Phone: No Panel Informationon 04-07 Group B Streptococcus Culture Group B Beta Streptococcus is not isolated. [facility] Work Phone: Laboratory - Chemistry and C hemistry - challengeon 03-22-2021 Glucose Ql (U) Negative [facility] Work Phone: Laboratory - Urinalysison Protein Ql (U) Negative [facility] Work Phone: Absolute lymphocyte counton 03-08-2021 Lymphocytes Auto (Unsp spec) [#/Vol] 1.68 10*3/uL 0.83-4.51 [facility] Work Phone: Basophil percentageon 2021 Basophils/100 WBC (Bld) 0.2 % 0-1 [facility] Work Phone: Eosinophils/100 WBC (Bld) 0.7 % 0-5 [facility] Work Phone: Neutrophils (Bld) [#/Vol] 6.8 10*3/uL 2.0-7.7 [facility] Work Phone: Neutrophils/100 WBC (Bld) 75.6 % 47-70 [facility] Work Phone: WBC (Bld) [#/Vol] 9.1 10*3/uL 4.4-11.[address] [facility] Work Phone: Blood erythrocytes count (nu mber/volume)on 03-08-2021 RBC (Bld) [#/Vol] 3.84 10*6/uL 4.2-5.4 [facility] Work Phone: Blood hemoglobin measurement (mass/volume)on 03-08-2021 Hemoglobin (Bld) [Mass/Vol] 11.2 g/dL 12.0-15.0 [facility] Work Phone: Blood lymphocytes/100 leukoc yteson 03-08-2021 Lymphocytes/100 WBC (Bld) 18.5 % 19-41 [facility] Work Phone: Blood monocytes/100 leukocyt eson 03-08-2021 Monocytes/100 WBC (Bld) 4.7 % 0-10 [facility] Work Phone: Blood platelet mean volumeon 03-08-2021 Platelet mean volume (Bld) [Entitic vol] 10.2 fL 6.2-12.0 [facility] Work Phone: Determination of erythrocyte mean corpuscular volume (MCV)on 03-08-2021 MCV (RBC) [Entitic vol] 92.4 fL 81-99 [facility] Work Phone: Hematocrit Auto (Bld) [Volum e fraction]on 03-08-2021 Hematocrit (Bld) [Volume fraction] 35.5 % 37-47 [facility] Work Phone: Laboratory - Chemistry and C hemistry - challengeon 03-08-2021 Glucose Ql (U) Negative [facility] Work Phone: Laboratory - Hematology and Cell countson 03-08-2021 Erythrocyte distribution width (RBC) [Entitic vol] 50.8 fL 35.1-43.9 [facility] Work Phone: Erythrocyte distribution width (RBC) [Ratio] 15.1 % 11.6-14.6 [facility] Work Phone: Immature granulocytes/100 WBC (Bld) 0.300 % 0.0-0.9 [facility] Work Phone: Comment on above: IG% - Immature Granu locytes (promyelocytes, myelocytes and metamyelocytes) > 1% indicates that a LEFT SHIFT is Present. MCH (RBC) [Entitic mass] 29.2 pg 27.0-32.0 [facility] Work Phone: Nucleated RBC/100 WBC (Bld) [Ratio] 0 % 0-5 [facility] Work Phone: Laboratory - Urinalysison Protein Ql (U) Negative [facility] Work Phone: MCHC Auto (RBC) [Mass/Vol]on 03-08-2021 MCHC (RBC) [Mass/Vol] 31.5 g/dL 32-36 [place] Work Phone: Platelets bldon 03-08-2021 Platelets (Bld) [#/Vol] 278 10*3/uL 150-450 [facility] Work Phone: Laboratory - Chemistry and C hemistry - challengeon 02-24-2021 Glucose Ql (U) Negative [facility] Work Phone: Laboratory - Urinalysison Protein Ql (U) Negative [facility] Work Phone: Vital Signs Date Time Vital Sign Value Performing Clinician Nick john 08-14-2024 09:55-0400 Body height 162.56 cm No Primary Care Physician [facility] 08-14-2024 09:55-0400 Body mass index (BMI) [Ratio] 25.6 kg/m2 No Primary Care Physician [facility] 08-14-2024 09:55-0400 Body weight 67.75 kg No Primary Care Physician [facility] 08-14-2024 09:55-0400 Diastolic blood pressure 75 mm[Hg] No Primary Care Physician [facility] 08-14-2024 09:55-0400 Systolic blood pressure 144 mm[Hg] No Primary Care Physician [facility] 11-21-2023 12:37-0400 Body mass index (BMI) [Ratio] 26.49 kg/m2 Kiana Campos APRN.CNP Work Phone: [facility] 11-21-2023 12:37-0400 Body temperature 97.5 [degF] Kiana Praisler-Wood CURB WORKER.BIRD KEEPER Work Phone: [facility] 11-21-2023 12:37-0400 Body weight 70 kg Kiana Praisler-Wood CURB WORKER.BIRD KEEPER Work Phone: [facility] 11-21-2023 12:37-0400 Diastolic blood pressure 70 mm[Hg] Kiana Praisler-Wood CURB WORKER.BIRD KEEPER Work Phone: [facility] 11-21-2023 12:37-0400 Heart rate 74 /min Kiana Praisler-Wood CURB WORKER.BIRD KEEPER Work Phone: [facility] 11-21-2023 12:37-0400 Respiratory rate 16 /min Kiana Praisler-Wood CURB WORKER.BIRD KEEPER Work Phone: [facility] 11-21-2023 12:37-0400 SaO2% (BldA) [Mass fraction] 98 % Kiana Praisler-Wood CURB WORKER.BIRD KEEPER Work Phone: [facility] 11-21-2023 12:37-0400 Systolic blood pressure 118 mm[Hg] Kiana Praisler-Wood CURB WORKER.BIRD KEEPER Work Phone: [facility] 07-11-2022 10:00-0400 Body height 162.56 cm No Primary Care Physician [facility] 07-11-2022 09:56-0400 Body mass index (BMI) [Ratio] 25.4 kg/m2 No Primary Care Physician [facility] 07-11-2022 09:56-0400 Body weight 67.13 kg No Primary Care Physician [facility] 07-11-2022 09:56-0400 Diastolic blood pressure 64 mm[Hg] No Primary Care Physician [facility] 07-11-2022 09:56-0400 Systolic blood pressure 98 mm[Hg] No Primary Care Physician [facility] 06-17-2021 13:46-0400 Body height 162.56 cm No Primary Care Physician [facility] Work Phone: 06-17-2021 13:46-0400 Body mass index (BMI) [Ratio] 28.1 kg/m2 No Primary Care Physician [facility] Work Phone: 06-17-2021 13:46-0400 Body weight 74.38 kg No Primary Care Physician [facility] Work Phone: 06-17-2021 13:46-0400 Diastolic blood pressure 88 mm[Hg] No Primary Care Physician [facility] Work Phone: 06-17-2021 13:46-0400 Systolic blood pressure 104 mm[Hg] No Primary Care Physician [facility] Work Phone: 05-10-2021 10:59-0400 Body weight 76.82 kg No Primary Care Physician [facility] Work Phone: 05-10-2021 10:59-0400 Diastolic blood pressure 60 mm[Hg] No Primary Care Physician [facility] Work Phone: 05-10-2021 10:59-0400 Systolic blood pressure 104 mm[Hg] No Primary Care Physician [facility] Work Phone: 04-28-2021 09:18-0400 Diastolic blood pressure 62 mm[Hg] No Primary Care Physician [facility] Work Phone: 04-28-2021 09:18-0400 Systolic blood pressure 105 mm[Hg] No Primary Care Physician [facility] Work Phone: 04-28-2021 08:17-0400 Body temperature 98 [degF] No Primary Care Physician [facility] Work Phone: 04-28-2021 08:17-0400 Heart rate 69 /min No Primary Care Physician [facility] Work Phone: 04-28-2021 08:17-0400 Respiratory rate 18 /min No Primary Care Physician [facility] Work Phone: 04-28-2021 01:55-0400 SaO2% (BldA) [Mass fraction] 98 % No Primary Care Physician [facility] Work Phone: 04-26-2021 10:16-0400 Body mass index (BMI) [Ratio] 32.1 kg/m2 No Primary Care Physician [facility] Work Phone: 04-26-2021 10:16-0400 Body weight 84.82 kg No Primary Care Physician [facility] Work Phone: 04-21-2021 10:22-0500 Body mass index (BMI) [Ratio] 31.9 kg/m2 No Primary Care Physician [facility] Work Phone: 04-21-2021 10:22-0500 Body weight 84.36 kg No Primary Care Physician [facility] Work Phone: 04-21-2021 10:22-0500 Diastolic blood pressure 80 mm[Hg] No Primary Care Physician [facility] Work Phone: 04-21-2021 10:22-0500 Systolic blood pressure 110 mm[Hg] No Primary Care Physician [facility] Work Phone: 04-14-2021 10:45-0500 Body mass index (BMI) [Ratio] 32.1 kg/m2 No Primary Care Physician [facility] Work Phone: 04-14-2021 10:45-0500 Body weight 84.82 kg No Primary Care Physician [facility] Work Phone: 04-14-2021 10:45-0500 Diastolic blood pressure 60 mm[Hg] No Primary Care Physician [facility] Work Phone: 04-14-2021 10:45-0500 Systolic blood pressure 122 mm[Hg] No Primary Care Physician [facility] Work Phone: 04-07-2021 09:12-0500 Body mass index (BMI) [Ratio] 31.6 kg/m2 No Primary Care Physician [facility] Work Phone: 04-07-2021 09:12-0500 Body weight 83.46 kg No Primary Care Physician [facility] Work Phone: 04-07-2021 09:12-0500 Diastolic blood pressure 84 mm[Hg] No Primary Care Physician [facility] Work Phone: 04-07-2021 09:12-0500 Systolic blood pressure 110 mm[Hg] No Primary Care Physician [facility] Work Phone: 03-22-2021 09:06-0500 Body mass index (BMI) [Ratio] 30.9 kg/m2 No Primary Care Physician [facility] Work Phone: 03-22-2021 09:06-0500 Body weight 81.64 kg No Primary Care Physician [facility] Work Phone: 03-22-2021 09:06-0500 Diastolic blood pressure 70 mm[Hg] No Primary Care Physician [facility] Work Phone: 03-22-2021 09:06-0500 Systolic blood pressure 102 mm[Hg] No Primary Care Physician [facility] Work Phone: 03-08-2021 09:24-0500 Body mass index (BMI) [Ratio] 29.7 kg/m2 No Primary Care Physician [facility] Work Phone: 03-08-2021 09:24-0500 Body weight 78.47 kg No Primary Care Physician [facility] Work Phone: 03-08-2021 09:24-0500 Diastolic blood pressure 82 mm[Hg] No Primary Care Physician [facility] Work Phone: 03-08-2021 09:24-0500 Systolic blood pressure 130 mm[Hg] No Primary Care Physician [facility] Work Phone: 02-24-2021 10:25-0500 Body mass index (BMI) [Ratio] 29.6 kg/m2 No Primary Care Physician [facility] Work Phone: 02-24-2021 10:25-0500 Body weight 78.24 kg No Primary Care Physician [facility] Work Phone: 02-24-2021 10:25-0500 Diastolic blood pressure 80 mm[Hg] No Primary Care Physician [facility] Work Phone: 02-24-2021 10:25-0500 Systolic blood pressure 110 mm[Hg] No Primary Care Physician [facility] Work Phone: Encounters Encounter Date Encounter Type Care Provider Facility Start: 08-14-2024 End: 08-14-2024 ambulatory No Primary Care Phys[place] [facility] Start: 08-14-2024 End: 08-14-2024 Patient encounter procedure [facility] Work Phone: Start: 08-14-2024 End: 08-14-2024 Patient encounter status [facility] Start: 11-21-2023 End: 11-21-2023 ambulatory Facility:[facility] Start: 11-21-2023 End: 11-21-2023 Patient encounter procedure Kiana Campos APRN.BIRD KEEPER Work Phone: [facility] Comment on above: Urinary frequency (P rimary Dx) Start: 08-14-2023 End: 08-14-2023 ambulatory No Primary Care Physician Facility:[facility] Start: 07-17-2023 End: 07-17-2023 ambulatory No Primary Care Physician Facility:[facility] Start: 08-22-2022 End: 08-22-2022 ambulatory No Primary Care Physician Facility:[facility] Start: 07-11-2022 End: 07-11-2022 ambulatory No Primary Care Physician [facility] Work Phone: Start: 07-11-2022 End: 07-11-2022 Patient encounter procedure No Primary Care Physician [facility] Work Phone: Start: 06-17-2021 End: 06-17-2021 Patient encounter procedure No Primary Care Physician [facility] Start: 05-10-2021 End: 05-10-2021 Patient encounter procedure No Primary Care Physician [facility] Start: 04-28-2021 Non-patient / Non-visit No Dora gotti Care Physician [facility] Start: 04-27-2021 Non-patient / Non-visit No Dora shen Care Physician [facility] Start: 04-26-2021 End: 04-28-2021 Evaluation and management of inpatient No Primary Care Physician [facility] Start: 04-26-2021 Non-patient / Non-visit No Dora gotti [facility] Phys[facility] Start: 04-21-2021 End: 04-21-2021 Patient encounter procedure No Primary Care Physician [facility] Start: 04-14-2021 End: 04-14-2021 Patient encounter procedure No Primary Care Physician [facility]Laboratory[facility] Specimen Start: 04-14-2021 End: 04-14-2021 Patient encounter procedure No Primary Care Physician [facility] Start: 04-07-2021 End: 04-07-2021 Patient encounter procedure No Primary Care Physician [facility] Start: 04-07-2021 End: 04-07-2021 Patient encounter procedure No Primary Care Physician [facility] Ultrasound Start: 03-22-2021 End: 03-22-2021 Patient encounter procedure No Primary Care Physician [facility] Start: 03-08-2021 End: 03-08-2021 Patient encounter procedure No Primary Care Physician [facility] Start: 03-08-2021 End: 03-08-2021 Patient encounter procedure No Primary Care Physician [facility] Ultrasound Start: 02-24-2021 End: 02-24-2021 Patient encounter procedure No Primary Care Physician [facility] Procedures Date Procedure Procedure Detail Performing Clinician Start: 11-21-2023 Urnls dip stick/tabl et rgnt auto w/o microscopy Vanessa Cochran APRN.CNP Work Phone: Start: 04-26-2021 End: 04-26-2021 Viral antigen assay No Primary Care Physician Start: 04-14-2021 Cytopathology proced ure, preparation of smear, genital source No Primary Care Physician Start: 04-14-2021 Investigation of transfusion reaction No Primary Care Physician Start: 04-07-2021 Group B Streptococcu s Culture No Primary Care Physician Start: 04-07-2021 Ultrasound scan for growth No Primary Care Physician Start: 03-08-2021 Ultrasound scan for growth No Primary Care Physician H/O: section H/O sectio n No Primary Care Physician Comment on above: plan scheduled c/s a t 39 weeks, 04/26/21 @ 12 Plan of Treatment Date Care Activity Detail Author Start: 02-08-2031 Urine microalbumin profile DTaP,Tdap,Td Vaccine (10 - Td or Tdap) [facility] Start: 10-14-2023 Covid-19 Vaccine () Covid-19 Vaccine () [facility] Start: 10-14-2023 Influenza vaccination Influenza Vacc ine (#1) [facility] Start: 04-26-2021 section Repeat C-Sect ion (Not Applicable) [facility] Work Phone: Start: 01-19-2017 Screening for malign ant neoplasm of cervix Cervical Cancer Screening [facility] Start: 05-24-2007 Anxiety Screening Anxiety Screening [facility] Start: 05-24-2007 Depression Screening Depression Scre ening [facility] Start: 05-24-2007 Hepatitis C screening Hepatitis C Sc reening [facility] Start: 05-24-2007 HIV screening HIV Screening [facility] Start: 05-24-1995 Pneumococcal vaccination Pneum ococcal Vaccine (1 of 2 - PCV) [facility] Bacteria identified in Urine by Culture URINE CULTURE Microbiology Routine Urinary frequency Ordered: 11/21/2023 [facility] Work Phone: Comment on above: Ordered: 11/21/2023 CBC W Auto Different ial panel - Blood [facility] Comprehensive metabo lic 1999 panel - Serum or Plasma [facility] Cortisol [Mass/volum e] in Serum or Plasma [facility] Lipid 1996 panel - S holly or Plasma [facility] Liquid based cervica l cytology screening [facility] Patient referral [facility] Work Phone: T4 free measurement [facility] Thyroid stimulating hormone measurement [facility] Vitamin B12 measurement [facility] Vitamin D, 25-hydrox y measurement [facility] Immunizations Immunization Date Immunization Notes Care Provider Fa cility 12-28-2021 tetanus toxoid, redu travis diphtheria toxoid, and acellular pertussis vaccine, adsorbed No Primary Care Physician [facility] 02-08-2021 diphtheria, tetanus toxoids and acellular pertussis vaccine, unspecified formulation No Primary Care Physician [facility] Work Phone: 11-24-2019 tetanus toxoid, redu travis diphtheria toxoid, and acellular pertussis vaccine, adsorbed No Primary Care Physician [facility] 11-24-2019 diphtheria, tetanus toxoids and acellular pertussis vaccine, unspecified formulation No Primary Care Physician [facility] Work Phone: 03-20-2007 hepatitis B vaccine, pediatric or pediatric/adolescent dosage Kiana Campos APRN.[facility] Work Phone: [facility] Work Phone: 09-10-2006 hepatitis B vaccine, pediatric or pediatric/adolescent dosage Kiana Campos APRN.[facility] Work Phone: [facility] 09-10-2006 Meningococcal, MCV4, unspecified conjugate formulation(groups A, C, Y and W-135) Kiana Campos APRN.[facility] Work Phone: [facility] 08-18-2002 hepatitis B vaccine, pediatric or pediatric/adolescent dosage Kiana Campos APRN.[facility] Work Phone: [facility] 09-03-2001 diphtheria and tetan us toxoids, adsorbed for pediatric use Kiana Campos APRN.[facility] Work Phone: [facility] 09-03-2001 measles, mumps and rubella virus vaccine Kiana Campos APRN.[facility] Work Phone: [facility] 10-02-1994 diphtheria, tetanus toxoids and acellular pertussis vaccine Kiana Campos APRN.BIRD KEEPER Work Phone: [facility] Work Phone: 10-02-1994 trivalent poliovirus vaccine, live, oral Kiana Campos APRN.BIRD KEEPER Work Phone: [facility] 12-23-1990 diphtheria, tetanus toxoids and pertussis vaccine Kiana Praisler-Wood CURB WORKER.BIRD KEEPER Work Phone: [facility] 12-23-1990 trivalent poliovirus vaccine, live, oral Kiana Praisler-Wood CURB WORKER.BIRD KEEPER Work Phone: [facility] 10-08-1990 haemophilus influenz ae type b vaccine, HbOC conjugate Kiana Praisler-Wood CURB WORKER.BIRD KEEPER Work Phone: [facility] 10-08-1990 measles, mumps and rubella virus vaccine Kiana Praisler-Wood CURB WORKER.BIRD KEEPER Work Phone: [facility] 06-03-1990 haemophilus influenz ae type b vaccine, HbOC conjugate Kiana Praisler-Wood CURB WORKER.BIRD KEEPER Work Phone: [facility] 06-03-1990 tuberculin skin test ; purified protein derivative solution, intradermal Kiana Praisler-Wood CURB WORKER.BIRD KEEPER Work Phone: [facility] 1989 diphtheria, tetanus toxoids and pertussis vaccine Kiana Praisler-Wood CURB WORKER.BIRD KEEPER Work Phone: [facility] 1989 diphtheria, tetanus toxoids and pertussis vaccine Kiana Praisler-Wood CURB WORKER.BIRD KEEPER Work Phone: [facility] 1989 trivalent poliovirus vaccine, live, oral Kiana Praisler-Wood CURB WORKER.BIRD KEEPER Work Phone: [facility] 1989 diphtheria, tetanus toxoids and pertussis vaccine Kiana Praisler-Wood CURB WORKER.BIRD KEEPER Work Phone: [facility] Work Phone: 1989 trivalent poliovirus vaccine, live, oral Kiana Praisler-Wood CURB WORKER.BIRD KEEPER Work Phone: [facility] Payers Date Payer Category Payer Self-pay [id number] 2022 Unknown [id number] 2019 Unknown [employer] PPO OOS [id number] 2019-Present [phone] [address] [place] [address] PPO [id number] 2019 Unknown [id number] [address] [facility] *DO NOT USE* [id number] Unknown [id number] Unknown [id number] Unknown [id number] Unknown [id number] Social History Date Type Detail Facility Start: 06-17-2021 End: 07-11-2022 Tobacco smoking status SDIS Unknown if ever smoked [facility] Start: 09-03-2019 Spouse/ Signif icant Other [facility] Start: 1990 Sex Assigned At Female [facility] Start: 11-21-2023 [facility] tobacco smoker [facility] History of tobacco use Cigarette Smoker [facility] Start: 11-21-2023 Tobacco use and exposure Smokeless tobacco non-user [facility] Start: 11-21-2023 Alcoholic beverage intake Current non-drinker of alcohol (finding) [facility] Start: 01-20-2020 End: 11-21-2023 History of Social function [facility] Start: 01-20-2020 End: 11-21-2023 Tobacco use panel [facility] National Score (1-100), lower number is lower risk Not on file [facility] Start: 11-21-2023 Tobacco Comment rarely smokes now [facility] Start: 1990 Sex assigned at Not on file [facility] Start: 08-22-2022 [facility]finding[facility] Functional Status Date Assessment Result Facility 04-26-2021 Functional status Activity Abili ty Bedrest;Post Op [facility] Work Phone: Mental Status Date Assessment Result Facility 04-26-2021 Cognitive function Voice/Name [facility] Work Phone: Instructions 11-21-2023 Patient Instructions Note Date & Type Note Facility 11-21-2023 Instructions Kiana Campos APRN.BIRD KEEPER - 11/21/2023 12:53 PM EDT ASSESSMENT/PLAN: 1. Urinary frequency - ICD9: 788.41, ICD10: R35.0 acute - UA positive for [place] esterase and hematuria - Send urine for culture - Begin treatment with Macrobid 100 mg BID for 5 days - UA DIP, URINE (POC) - URINE CULTURE - NITROFURANTOIN MONOHYDRATE & MACROCRYSTAL 100 MG ORAL CAP - Follow-up with your PCP in 3-5 days if symptoms have not improved or sooner if symptoms worsen - Discussed red flags and need for immediate medical evaluation if any occur. - Discussed supportive care treatment with fluids, rest and analgesia. - Discussed expected course of illness Kiana Campos APRN.BIRD KEEPER [facility] PATIENT INFO BLADDER INFECTION OVERVIEW Bladder infections are one of the most common infections, causing symptoms of burning with urination and needing to urinate frequently. A bladder infection is a type of urinary tract infection (UTI). Bladder infections are more common is women than men. Most women have an uncomplicated bladder infection that is easily treated with a short course of antibiotics. In men, bladder infections may also affect the prostate gland, and a longer course of treatment may be needed. BLADDER INFECTION CAUSES The urinary tract includes the kidneys (which filter urine), ureters (the tube that carries urine from the kidneys to the bladder), the bladder (which stores urine), and urethra (the tube that carries urine out of the bladder). Bacteria do not normally live in these areas. However, bacteria normally live close to the urethra in women and men who are not circumcised. Bladder infections occur when bacteria travel up the urethra into the bladder. Factors that increase the risk of developing a bladder infection include: Vaginal sex Use of spermicides History of past bladder infections Diabetes In men, not being circumcised or having anal sex increase the risk of bladder infections. BLADDER INFECTION SYMPTOMS The typical symptoms of a bladder infection include: Pain or burning when urinating Frequent need to urinate Urgent need to urinate Blood in the urine Fever, back pain, nausea, or vomiting are not common symptoms of a bladder infection, but can occur in people with a kidney infection (pyelonephritis). If you have these symptoms, you should call your doctor or nurse immediately. Is it a bladder infection or something else? -- Burning with urination can also occur in people with vaginitis (eg, yeast infection) or urethritis (inflammation of the urethra). For this reason, it is important to call your healthcare provider before assuming you have a bladder infection. BLADDER INFECTION DIAGNOSIS Simple bladder infections are usually diagnosed based upon your symptoms alone. However, most patients, especially those who have bladder infection symptoms for the first time, should see a healthcare provider for urine testing. Urine culture -- A urine culture is a test that uses a sample of urine to try and grow bacteria in a laboratory. It usually requires about 48 hours to get results. However, a urine culture is not always required to diagnose a bladder infection. Urine culture is often recommended if: You have never had a bladder infection before You have symptoms that are not typical for bladder infection You have had resistant bladder infections before You have frequent bladder infections You do not begin to feel better within 24 to 48 hours after starting antibiotics You are BLADDER INFECTION TREATMENT Bladder infection -- In young, healthy adolescents and adults with a bladder infection, the usual treatment includes a three to seven day course of antibiotics. The typical drugs chosen are: trimethoprim-sulfamethoxazole (Bactrim ), nitrofurantoin (Macrobid ), ciprofloxacin (Cipro ) or levofloxacin (Levaquin ). In men, the infection may involve your prostate gland and treatment is usually given for at least 7 days. Your symptoms should begin to resolve within one day after starting treatment. It is important to take the full course of antibiotics to completely eliminate the infection. If your symptoms persist for more than two or three days after starting treatment, call your healthcare provider. If needed, you can take a prescription medication that numbs the bladder and urethra (phenazopyridine [Pyridium ]) to reduce the burning pain of some UTIs. A similar medication is available without a prescription (eg, Uristat). Both medications change the color of the urine (usually blue or orange) and can interfere with laboratory testing. You should not take these medications for more than 48 hours due to the risk of side effects. These medications do not treat the infection and must be taken along with an antibiotic. Some providers recommend drinking more fluids while treating bladder infections to help flush bacteria from the bladder. Others believe that drinking more fluids may dilute the antibiotic in the bladder and make the medication less effective. No studies have been performed to address this issue. There are also no good studies on the effectiveness of cranberry juice for treating a bladder infection; we do not recommend using cranberry juice to treat bladder infections. Follow-up care -- Follow-up testing is not needed in healthy, young men or women with a bladder infection if symptoms resolve. women are usually asked to have a repeat urine culture one to two weeks after treatment has ended to make sure the bacteria are no longer in the urine. RECURRENT BLADDER INFECTIONS Bladder infections versus other causes -- Some adults, especially women, develop bladder infections frequently. In this case, it is important to confirm that your symptoms (eg, pain or burning, frequency, and urgency) are caused by a bladder infection. Symptoms are usually similar from one infection to another. The best way to confirm an infection is to have a urine culture. If your urine culture is negative for infection, other causes of pain, burning, and frequency should be investigated. There is no reason to take antibiotics if your urine culture is negative. Need for further testing -- If you continue to develop bladder infections, you may require further testing. If you continue to notice blood in your urine after your bladder infection has cleared, you should have further testing. Preventing recurrent UTIs -- Women with recurrent urinary tract infections may be advised to take steps to prevent bladder infections, including one or more of the following: Changes in control -- Women who develop frequent bladder infections and use spermicides, particularly those who also use a diaphragm, may be encouraged to use an alternate method of control. Cranberry products -- Taking cranberry juice or cranberry tablets has been promoted as one way to help prevent frequent bladder infections. However, this has not been proven. Drinking more fluid and urinating after intercourse -- Although studies have not proven that drinking more fluids or urinating soon after intercourse can prevent infection, some healthcare providers recommend these measures since they are not harmful. Drinking more fluid may help to wash out bacteria that enter the bladder. Postmenopausal women -- Postmenopausal women who develop recurrent bladder infections may benefit from using vaginal estrogen. Vaginal estrogen is available in a flexible ring that is worn in the vagina for three months (eg, Estring ), a small tablet (Vagifem ), or a cream (eg, Premarin or Estrace ). Vaginal estrogen is discussed in more detail in a separate topic review. Antibiotics -- A preventive antibiotic treatment may be recommended if you repeatedly develop bladder infections and have not responded to other preventive measures. Antibiotics are highly effective in preventing recurrent bladder infections and can be taken in several different ways. Preventive antibiotic -- You can take a low dose of an antibiotic once per day or three times per week for six months to several years. Antibiotics following intercourse -- In women who develop urinary tract infections after sex, taking a single low dose antibiotic after intercourse can help to prevent bladder infections. Self-treatment -- A plan to begin antibiotics at the first sign of a bladder infection may be recommended in some situations. Before starting this regimen, it is important that you have had testing (urine cultures) to confirm that your symptoms are caused by a bladder infection; some people have symptoms of a bladder infection but do not actually have an infection. documented in this encounter [facility] Progress note 11-21-2023 Note Date & Type Note Facility 11-21-2023 Note HNO ID: [id number] Author: KIANA CAMPOS APRN.BIRD KEEPER Service: ? Author Type: Nurse Practitioner Type: Progress Notes Filed: 11/21/2023 12:54 Note Text: Subjective HPI Jefry Oleary is a 33 year old female who presents with 4 days of urinary frequency and dysuria. She has had some low back pain. No fever or chills. Had some nausea last night after eating but it resolved. She has not taken any medication for her symptoms. LMP was 2 weeks ago. She denies concern for STDs. Review of Systems Constitutional: Negative for chills and fever. Respiratory: Negative. Cardiovascular: Negative. Gastrointestinal: Negative for abdominal pain, nausea and vomiting. Genitourinary: Positive for dysuria and frequency. Negative for hematuria. Musculoskeletal: Positive for back pain. BP 118/70 Pulse 74 Temp 36.4 ?C (97.5 ?F) Resp 16 Wt 70 kg (154 lb 5.2 oz) LMP 12/28/2013 SpO2 98% BMI 26.49 kg/m? 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 MEDICATIONS citalopram (CELEXA) 20 mg tablet Take 0.5 tablets by mouth every afternoon. PNV no.95/ferrous fum/folic ac ( ORAL) Take by mouth. (Patient not taking: Reported on 11/21/2023) Elvdjwrvfwtybck-Vzredvaxb-PQ (BROMFED DM) 2-30-10 mg/5 mL syrup Take 5-10 ml po q6h prn (Patient not taking: Reported on 06/07/2020 ) FAMILY HISTORY Problem Relation Age of Onset Hypertension Maternal Grandmother None Mother None Father None Sister None Sister None Brother Social History Tobacco Use Smoking status: Some Days Types: Cigarettes Smokeless tobacco: Never Tobacco comments: rarely smokes now Substance Use Topics Alcohol use: No Drug use: No Objective Physical Exam Vitals and nursing note reviewed. Constitutional: General: She is not in acute distress. Appearance: Normal appearance. She is not ill-appearing. Cardiovascular: Rate and Rhythm: Normal rate and regular rhythm. Heart sounds: Normal heart sounds. Pulmonary: Effort: Pulmonary effort is normal. No respiratory distress. Breath sounds: Normal breath sounds. No wheezing or rales. Abdominal: General: There is no distension. Palpations: Abdomen is soft. There is no mass. Tenderness: There is abdominal tenderness in the suprapubic area. There is no right CVA tenderness, left CVA tenderness or guarding. Skin: General: Skin is warm and dry. Neurological: Mental Status: She is alert. ASSESSMENT/PLAN: 1. Urinary frequency - ICD9: 788.41, ICD10: R35.0 acute - UA positive for [place] esterase and hematuria - Send urine for culture - Begin treatment with Macrobid 100 mg BID for 5 days - UA DIP, URINE (POC) - URINE CULTURE - NITROFURANTOIN MONOHYDRATE AND MACROCRYSTAL 100 MG ORAL CAP - Follow-up with your PCP in 3-5 days if symptoms have not improved or sooner if symptoms worsen - Discussed red flags and need for immediate medical evaluation if any occur. - Discussed supportive care treatment with fluids, rest and analgesia. - Discussed expected course of illness Kiana Campos APRN.CYNTHIA [facility] History of Present illness Narrative 11-21-2023 Kiana Campos APRN.BIRD KEEPER - 11/21/2023 12:47 PM EDT Note Date & Type Note Facility 11-21-2023 History of Presen t illness Narrative Subjective HPI Jefry Oleary is a 33 year old female who presents with 4 days of urinary frequency and dysuria. She has had some low back pain. No fever or chills. Had some nausea last night after eating but it resolved. She has not taken any medication for her symptoms. LMP was 2 weeks ago. She denies concern for STDs. Review of Systems Constitutional: Negative for chills and fever. Respiratory: Negative. Cardiovascular: Negative. Gastrointestinal: Negative for abdominal pain, nausea and vomiting. Genitourinary: Positive for dysuria and frequency. Negative for hematuria. Musculoskeletal: Positive for back pain. BP 118/70 Pulse 74 Temp 36.4 C (97.5 F) Resp 16 Wt 70 kg (154 lb 5.2 oz) LMP 12/28/2013 SpO2 98% BMI 26.49 kg/m PAST MEDICAL HISTORY Diagnosis Date Erythema nodosum 08-was on [place] PMH - PAST MEDICAL HISTORY OF 08/18/02 normal color vision PMH - PAST MEDICAL HISTORY OF 06/13 right arm fracture Varicella without mention of complication PAST SURGICAL HISTORY Procedure Laterality Date NONE ALLERGIES Patient has no known allergies. MEDICATIONS citalopram (CELEXA) 20 mg tablet Take 0.5 tablets by mouth every afternoon. PNV no.95/ferrous fum/folic ac ( ORAL) Take by mouth. (Patient not taking: Reported on 11/21/2023) Owmgadxzxmzeujl-Dyinwsuwv-CX (BROMFED DM) 2-30-10 mg/5 mL syrup Take 5-10 ml po q6h prn (Patient not taking: Reported on 06/07/2020 ) FAMILY HISTORY Problem Relation Age of Onset Hypertension Maternal Grandmother None Mother None Father None Sister None Sister None Brother Social History Tobacco Use Smoking status: Some Days Types: Cigarettes Smokeless tobacco: Never Tobacco comments: rarely smokes now Substance Use Topics Alcohol use: No Drug use: No Objective Physical Exam Vitals and nursing note reviewed. Constitutional: General: She is not in acute distress. Appearance: Normal appearance. She is not ill-appearing. Cardiovascular: Rate and Rhythm: Normal rate and regular rhythm. Heart sounds: Normal heart sounds. Pulmonary: Effort: Pulmonary effort is normal. No respiratory distress. Breath sounds: Normal breath sounds. No wheezing or rales. Abdominal: General: There is no distension. Palpations: Abdomen is soft. There is no mass. Tenderness: There is abdominal tenderness in the suprapubic area. There is no right CVA tenderness, left CVA tenderness or guarding. Skin: General: Skin is warm and dry. Neurological: Mental Status: She is alert. ASSESSMENT/PLAN: 1. Urinary frequency - ICD9: 788.41, ICD10: R35.0 acute - UA positive for [place] esterase and hematuria - Send urine for culture - Begin treatment with Macrobid 100 mg BID for 5 days - UA DIP, URINE (POC) - URINE CULTURE - NITROFURANTOIN MONOHYDRATE & MACROCRYSTAL 100 MG ORAL CAP - Follow-up with your PCP in 3-5 days if symptoms have not improved or sooner if symptoms worsen - Discussed red flags and need for immediate medical evaluation if any occur. - Discussed supportive care treatment with fluids, rest and analgesia. - Discussed expected course of illness Kiana Campos APRN.CYNTHIA documented in this encounter [facility] Evaluation note Note Date & Type Note Facility Evaluation note Diagnosis Onset Date Anemia affecting r esolved COVID-19 affecting , antepartum resolved H/O section resolve d H/O recurrent urinary tract infection resolved [id number] resolved resolved Short interval between pregn ancies affecting , antepartum resolved Supervision of other normal resolved UTI in resolved Anemia affecting r esolved COVID-19 affecting , antepartum resolved H/O section resolve d H/O recurrent urinary tract infection resolved [id number] resolved resolved Short interval between pregn ancies affecting , antepartum resolved Supervision of other normal resolved UTI in resolved Anemia affecting r esolved COVID-19 affecting , antepartum resolved H/O section resolve d resolved Short interval between pregn ancies affecting , antepartum resolved Supervision of other normal resolved UTI in resolved Anemia affecting r esolved COVID-19 affecting , antepartum resolved H/O section resolve d resolved Short interval between pregn ancies affecting , antepartum resolved Supervision of other normal resolved UTI in resolved Anemia affecting r esolved COVID-19 affecting , antepartum resolved H/O section resolve d resolved Short interval between pregn ancies affecting , antepartum resolved Supervision of other normal resolved UTI in resolved Anemia affecting r esolved COVID-19 affecting , antepartum resolved H/O section resolve d resolved Short interval between pregn ancies affecting , antepartum resolved Supervision of other normal resolved UTI in resolved Anemia acute Anemia affecting r esolved COVID-19 affecting , antepartum resolved H/O section resolve d resolved Short interval between pregn ancies affecting , antepartum resolved Supervision of other normal resolved UTI in resolved Anemia acute [facility] Work Phone: Evaluation note Note Date & Type Note Facility Evaluation note Diagnosis Onset Date Depression acute Fatigue acute Encounter for routine gyneco logical examination noneactive [facility] Work Phone: Evaluation note Note Date & Type Note Facility Evaluation note Diagnosis Urinary frequency- Primary documented in this encounter [facility] Evaluation note Note Date & Type Note Facility Evaluation note Diagnosis Onset Date Resolution Anxiety acute August 14, 2024 9:54am Encounter for routine gynecological examination noneactive August 14, 2024 9:54am [facility] [employer] Work Phone: Reason for referral (narrative) Note Date & Type Note Facility Reason for referral (narrative) No reason for referral information available [facility] [employer] [facility] Work Phone: Chief Complaint and Reason for Visit Chief Complaint 30 WK OB COVID AFFFECTING /GROWTH - 32 WEEKS 32 WK OB 34 WK OB 36 WEEKS GROWTH 36 WK OB 37 WK OB 38 WK OB REPEAT C SECTION REPEAT C SECTION REPEAT C SECTION 2 week post c/s 6w pp E-ORDER Reason for Visit Anemia affecting pre gnancy COVID-19 affecting , antepartum H/O section H/O recurrent urinary tract infection [id number] Short interval between pregnancies affecting , antepartum Supervision of other normal UTI in Anemia affecting COVID-19 affecting , antepartum H/O section H/O recurrent urinary tract infection [id number] Short interval between pregnancies affecting , antepartum Supervision of other normal UTI in Anemia affecting COVID-19 affecting , antepartum H/O section Short interval between pregnancies affecting , antepartum Supervision of other normal UTI in Anemia affecting COVID-19 affecting , antepartum H/O section Short interval between pregnancies affecting , antepartum Supervision of other normal UTI in Anemia affecting COVID-19 affecting , antepartum H/O section Short interval between pregnancies affecting , antepartum Supervision of other normal UTI in Anemia affecting COVID-19 affecting , antepartum H/O section Short interval between pregnancies affecting , antepartum Supervision of other normal UTI in Anemia Anemia affecting COVID-19 affecting , antepartum H/O section Short interval between pregnancies affecting , antepartum Supervision of other normal UTI in Anemia 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) Reason for Visit Depression Fatigue Encounter for routine gynecological examination Chief Complaint Admit Date 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) August 14, 2024 9:54a m Reason for Visit Admit Date Anxiety August 14, 2024 9:54a m Encounter for routine gynecological exam ination August 14, 2024 9:54am Family History Relationship Condition Age at Onset Recorded Date/T john grandfather Leukemia Unknown grandmother Hypertension Unknown Advance Directives Advance Directive Response Recorded Date/ Time Living Will No April 26, 2021 10:30am Power of Legal Receptionist No April 26 10:30am Summary Purpose Additional Source Comments Goals (unrecognized section and content) Goals may be documented in a n alternate sectionGoals may be documented in an alternate sectionGoals may be documented in an alternate section Care Teams (unrecognized sec tion and content) Team Status: Active Member Role Status Dates Dr. Varun Martell MD Family Provider Active No Primary Care Physician Primary Care Provider Active Team Status: Inactive Member Role Status Dates No Primary Care Physician Primary Care Provider, Refer ring Provider Active Luiza Yadav NP, BACKUP ENGINEER-C Attending Provider Active Team Status: Inactive Member Role Status Dates No Primary Care Physician Primary Care Provider Active Luiza Yadav NP, BACKUP ENGINEER-C Attending Provider, Referring Provider Active Team Status: Active Member Role/Relationship Status Dates Dr. Varun Martell MD Family Provider Active No Primary Care Physician Primary Care Provider Active Team Status: Inactive Member Role/Relationship Status Dates No Primary Care Physician Primary Care Provider Active Start: August 14, 2024 End: August 14, 2024 No Primary Care Physician Referring Provider Active Start: August 14, 2024 End: August 14, 2024 Genesis Baxter NP-C Attending Provider Active Start: August 14, 2024 End: August 14, 2024 INFORMATION SOURCE (unrecogn ized section and content) DATE CREATED AUTHOR 08/15/2023 [facility] DATE CREATED AUTHOR AUTHOR'S ORGANIZ ATION 11/23/2023 [facility] Source Comments (unrecognize d section and content) In the event this informatio n is protected by the Federal Confidentiality of Alcohol and Drug Abuse Patient Records regulations: The Federal rules restrict any use of the information to criminally investigate or prosecute any alcohol or drug abuse patient.[facility] Reason for Visit (unrecogniz ed section and content) Reason Comments Urinary Frequency burning x 4 days FOR RECORDS PERTAINING TO PATIENTS WHO ARE OR HAVE BEEN ENROLLED IN A CHEMICAL DEPENDENCY/SUBSTANCEABUSE PROGRAM, SOME INFORMATION MAY BE OMITTED. This clinical summary was aggregated from multiple sources. Caution should be exercised in using it in the provision of clinical care. This summary normalizes information from multiple sources, and as a consequence, information in this document may materially change the coding, format and clinical context of patient data. In addition, data may be omitted in some cases. CLINICAL DECISIONS SHOULD BE BASED ON THE PRIMARY CLINICAL RECORDS. [facility]. provides no warranty or guarantee of the accuracy or completeness of information in this document.
[2024-08-19 13:08] LABS: HPV APTIMA, High Risk Negative (Negative)
== END | disposition home or self-care (01) ==
LOC: LABSPEC 11:17
PROVIDERS: Referring Provider Nurse Practitioner Family; Visit Provider Nurse Practitioner Family
DX: Z12.4 Encounter for screening for malignant neoplasm of cervix (principal)
CPT/HCPCS: 87624; 88175; G0145

== ENCOUNTER → 2024-08-19 | Outpatient (CLI) | payer BC, SELFPAY ==
[2024-08-19 12:14] LABS: Hematocrit 37.3 % (37-47); Hemoglobin 11.9 g/dL (12.0-15.0); Immature Granulocytes Count 0.010 X10^3/uL (0.0-0.0); Mean Corp Hgb Conc 31.9 g/dL (32-36); Mean Corpuscular Volume 92.1 fL (81-99); Mean Platelet Vol. 10.3 fl (6.2-12.0); NRBC Flagged by Analyzer 0 % (0-5); Platelet Count 262 K/mm3 (150-450); RBC Distribution Width CV 13.8 % (11.6-14.6); RBC Distribution Width SD 47.0 fl (35.1-43.9); Red Blood Count 4.05 M/mm3 (4.2-5.4); White Blood Count 5.2 K/mm3 (4.4-11.0)
[2024-08-19 13:21] LABS: AST(SGOT) 23 U/L (<=31); Alanine Aminotransfer ALT/SGPT 16 U/L (<=34); Albumin, Serum 4.1 g/dL (3.5-5.0); Alkaline Phosphatase 55 U/L (35-104); Anion Gap 7 (5-15); BUN 9 mg/dL (4-19); BUN/Creat Ratio 12.3 RATIO (10-20); CORTISOL AM 9.56 ug/dL (6.02-18.40); Calcium,Total 8.8 mg/dL (7.6-11.0); Carbon Dioxide 24.6 mmol/L (21.0-32.0); Chloride 107 mmol/L (98-108); Cholesterol 165 mg/dL (<=200); Globulin 2.8 g/dL (2.2-4.2); Glucose 87 mg/dL (70-99); Low Density Lipoprotein Calc. 98 mg/dL; Potassium 4.4 mmol/L (3.3-5.1); Triglycerides 59 mg/dL; Very Low Density Lipoprotein 12 mg/dL (5-40); Vitamin B12 963 pg/mL (180-914); Vitamin D,25 Hydroxy 26.6 ng/mL (30-100); cholesterol:hdl ratio screen 2.96
== END | disposition home or self-care (01) ==
PROVIDERS: Visit Provider Nurse Practitioner Family
DX: R53.83 Other fatigue (principal)
CPT/HCPCS: 36415; 80053; 80061; 82306; 82533; 82607; 84439; 84443; 85025

== ENCOUNTER 2024-09-12 08:28 | Emergency (ER) | payer BC, SELFPAY ==
[2024-09-12 08:29] VITALS: BP 101/75; PULSE 77; RESP 16; TEMP 36.8; O2SAT 100; BMI 25.7
--- NOTE | 2024-09-12 08:41 | CT_ITS ---
PROCEDURE: ABDOMEN/PELVIS W IV CONT ONLY 09/12/2024 REASON FOR EXAM: L FLANK PAIN, RECENT UTI, HX OF STONES TECHNIQUE: ABDOMEN/PELVIS W IV CONT ONLY Coronal and Sagittal reconstruction series were provided. CONTRAST: 100 mL of Isovue 370 One or more dose reduction techniques were used (e.g., Automated exposure control, adjustment of the mA and/or kV according to patient size, use of iterative reconstruction technique. RADIATION DOSE SUMMARY: DLP: 660 mGycm COMPARISON: None FINDINGS: Limited sections of the lung bases demonstrate no focal pulmonary mass or consolidations. The liver, spleen, pancreas, and both adrenal glands demonstrate no acute findings. Mild hepatomegaly to 16.7 cm. The gallbladder is unremarkable. The stomach is unremarkable. The small bowel loops are not dilated. The appendix is normal. No colonic obstruction. There is no free air or significant free fluid. Scattered subcentimeter hypodensities throughout the left kidney with inflammation and suggestion of striated nephrogram may reflect pyelonephritis. No obstructive uropathy or hydronephrosis noted at this time. The right kidney contains scattered subcentimeter cysts without significant inflammation. Bilateral ureters appear mildly inflamed where ureteritis is not excluded. The urinary bladder is distended. The pelvic structures are intact. There is no solid pelvic mass. IUD noted within the uterus. No significant lymphadenopathy. The aorta and IVC demonstrate no acute findings. Visualized osseous structures demonstrate no acute abnormality. CT/Abdomen/Pelvis W IV Cont ONLY IMPRESSION: Scattered subcentimeter hypodensities throughout the left kidney with inflammat ion and suggestion of striated nephrogram may reflect pyelonephritis. No obstructive uropathy or hydronephrosis noted at this time. Bilateral ureter s appear mildly inflamed where ureteritis is not excluded. Reading Location: [id number]
--- NOTE | 2024-09-12 08:42 | EDS_ITS ---
HPI History of Present Illness Chief Complaint: Complaint Narrative Narrative: Patient is a 34-year-old female with past medical history of recurrent UTIs, anxiety who presented to the emergency department chief complaint of left-sided back pain and was recently diagnosed with a urinary tract infection. Patient states that her primary care physician advised her that she needs to come to the emergency department to have a CT scan performed. Patient states that she has been on antibiotics now for a urinary tract infection and states that this is Macrobid. Patient states that she does smoke denies any IV drug use history, states that she has occasional alcohol use PFSH PFS Medical History depression delivery delivered H/O recurrent urinary tract infection Supervision of other normal Recurrent UTI Breast lump Erythema nodosum Home Medications ?Medication ?Instructions ?Recorded ?Last Taken ?Type levonorgestrel (Mirena) 1 device intrauterine ONCE 0 09/13/21 Unknown History citalopram 20 mg tablet 10 mg (1/2 x 20 mg) PO DAILY #45 11/08/23 09/11/24 Rx tabs cephalexin 500 mg capsule 500 mg PO BID 10 days #20 ca ps 09/12/24 Unknown Rx Allergy/AdvReac Type Severity Reaction Status Date / Time No Known Allergies Allergy Verified 09/12/24 08:41 Family History Grandfather Leukemia Grandmother Hypertension Surgical History H/O oophorectomy H/O section History of primary section Social History Smoking Status: Current every day smoker tobacco type: cigarettes alcohol intake: never substance use type: does not use caffeine: Yes what type of physical activity do you participate in: none seatbelt use: always do you feel safe at home: Yes additional social history: - [place] Patient works at [employer] ROS ED ROS Narrative Constitutional: Complains of whole body aches, fevers, chills Cardiovascular: Denies chest pain Respiratory: Shortness of breath Abdomen: Denies abdominal pain nausea vomit diarrhea : Complains of painful urination and increased frequency of urination and recent diagnosis of urinary tract infection as noted above Neurological: Denies any numbness, wheeze, tingling Musculoskeletal: Complains of left-sided back pain as noted above Skin: Denies any rashes or lesions EXAM Physical Exam Narrative Exam Narrative: general: Patient is lying in bed rest comfortably did not appear to be in acute distress Head: Atraumatic, normocephalic Eyes: PERRL bilaterally, EOMI bilateral, no conjunctival injection noted Neck: Soft, supple, trachea midline Cardiovascular: Regular rate and rhythm Respiratory: Clear to auscultation bilaterally Abdomen: Soft, nondistended, nontender to palpation Musculoskeletal: No tense palpation midline of the thoracic lumbar spine, patient has a mild CVA tenderness on the left Extremities: +5/5 strength noted in the bilateral upper and lower extremities Neurological: Patient follow commands that she was at [facility] year is 2024 Skin: Warm, dry, intact no rashes or lesions noted Const Vital Signs: 09/12/24 08:29 09/12/24 10:29 09/12/24 11:59 Temperature 98.2 F Temperature Source Oral Pulse Rate 77 71 77 Respiratory Rate 16 16 16 Blood Pressure 101/75 96/59 L Blood Pressure Mean 83 71 Pulse Ox 100 96 97 Oxygen Delivery Method Room Air Room Air Room Air MDM MDM MDM Narrative Medical decision making narrative: Patient is a 34-year-old female who presented to the emergency department with concern for UTI, left-sided back pain. On the differential diagnosis includes but not limited to urolithiasis, UTI, pyelonephritis, . Once workup is obtained reviewed she will be reevaluated. Patient was given IV fluids for hydration. Patient CBC reviewed showed a white blood count 11,000, hemoglobin of 13.3, platelet count of 237. Patient sodium normal 135, potassium normal 3.8, creatinine normal at 0.90. Patient's AST and ALT were 27 and 23 respectively. Patient lipase was 21 test negative, urinalysis showed 150 ketones, 10 occult blood 25 leukocyte esterase 0-5 white cells with no bacteria noted. Patient's CT abdomen pelvis IV contrast showed scattered subcentimeter hypodensities throughout the left kidney with inflammation and suggestion of striated nephrogram may reflect pyelonephritis. No obstructive uropathy or hydro noted at this time bilateral ureters appear mildly inflamed where ureteritis is not excluded. Patient given 2 g of Rocephin. Discussed results with patient she would like to go home at this point time. Patient will be placed on Keflex for 10 days. She was advised to take the entirety of this medication and return with worsening symptoms or concerns she was advised to discontinue Macrobid.. She is advised to rotate Tylenol and ibuprofen [id number] for fever control. She is agreeable this plan all course concerns answered she is discharged home in stable condition. Lab Data Labs: Laboratory Results - last 24 hr 09/12/24 09/12/24 08:44 09:30 WBC 11.6 H RBC 4.38 Hgb 13.3 Hct 39.5 MCV 90.2 MCH 30.4 MCHC 33.7 RDW Std Deviation 46.0 H RDW Coeff of Amos 13.7 Plt Count 237 MPV 9.5 Immature Gran % (Auto) 0.400 Neut % (Auto) 82.0 H Lymph % (Auto) 9.6 L Bucks % (Auto) 7.7 Eos % (Auto) 0.0 Baso % (Auto) 0.3 Absolute Neuts (auto) 9.5 H Absolute Lymphs (auto) 1.11 Nucleated RBC % 0 Sodium 135 Potassium 3.8 Chloride 99 Carbon Dioxide 20.8 L Anion Gap 16 H BUN 11 Creatinine 0.90 Estim Creat Clear Calc 82.66 Est GFR (MDRD) Non-Af 86 BUN/Creatinine Ratio 12.2 Glucose 89 Calcium 9.4 Total Bilirubin 0.53 AST 27 ALT 23 Alkaline Phosphatase 85 Total Protein 8.0 Albumin 4.3 Globulin 3.7 Albumin/Globulin Ratio 1.2 Lipase 21 Serum , Qual NEGATIVE Urine Color Yellow Urine Clarity Sl. Cloudy Urine pH 6.5 Ur Specific [place] 1.010 Urine Protein 30 H Urine Glucose (UA) Normal Urine Ketones 150 A* Urine Occult Blood 10 H Urine Nitrite Negative Urine Bilirubin Negative Urine Urobilinogen Normal Ur Leukocyte Esterase 25 H Urine RBC 0-5 SEEN Urine WBC 0-5 SEEN Ur Squamous Epith Cells 5-10 SEEN Urine Bacteria 0 SEEN Urine Mucus 0 SEEN Radiography Diagnostic Testing: Clinical Impression(s) from Imaging Studies Abdomen/Pelvis CT 09/12/24 08:41 IMPRESSION: Scattered subcentimeter hypodensities throughout the left kidney with inflammation and suggestion of striated nephrogram may reflect pyelonephritis. No obstructive uropathy or hydronephrosis noted at this time. Bilateral ureters appear mildly inflamed where ureteritis is not excluded. Reading Location: [facility] Discharge Plan Triage Chief Complaint: Complaint ED Provider: Alphonso Tripp Dx/Rx/DC Orders Clinical Impression: UTI (urinary tract infection), Pyelonephritis Prescriptions: New cephalexin 500 mg capsule 500 mg PO BID 10 Days Qty: 20 0RF No Action Mirena 20 mcg/24 hours (7 yrs) 52 mg intrauterine device 1 device intrauterine ONCE Rx Instructions: as a single dose citalopram 20 mg tablet 10 mg PO DAILY Qty: 45 3RF Primary Care Provider: Amelia Jama Referrals: NOT,DEFINED [Non-Staff] - Activity Restrictions/Additional Instructions: Take antibiotics as prescribed. Follow-up on urine culture with your doctor. Return with worsening symptoms or any other concerns stop Macrobid and take the Keflex/cephalexin that was sent to your pharmacy. You were given IV Rocephin here in the emergency department. Your blood work did not show any acute findings. Print Language: Welsh Disposition Disposition: Home, Self Care
[2024-09-12] MEDS: 0.9% Normal Saline (1000mL) 1,000 ML 999 ML IV (08:49)
[2024-09-12 08:57] LABS: Hematocrit 39.5 % (37-47); Hemoglobin 13.3 g/dL (12.0-15.0); Immature Granulocytes Count 0.050 X10^3/uL (0.0-0.0); Mean Corp Hgb Conc 33.7 g/dL (32-36); Mean Corpuscular Volume 90.2 fL (81-99); Mean Platelet Vol. 9.5 fl (6.2-12.0); NRBC Flagged by Analyzer 0 % (0-5); Platelet Count 237 K/mm3 (150-450); RBC Distribution Width CV 13.7 % (11.6-14.6); RBC Distribution Width SD 46.0 fl (35.1-43.9); Red Blood Count 4.38 M/mm3 (4.2-5.4); White Blood Count 11.6 K/mm3 (4.4-11.0)
[2024-09-12 09:12] LABS: Internal QC Validated? YES +Cl - CLEAR BKGD; Pregnancy, Serum, hCG Quali. NEGATIVE Negative; Record Kit Lot#, Serum Preg. 0000962302
[2024-09-12 09:25] LABS: AST(SGOT) 27 U/L (<=31); Alanine Aminotransfer ALT/SGPT 23 U/L (<=34); Albumin, Serum 4.3 g/dL (3.5-5.0); Alkaline Phosphatase 85 U/L (35-104); Anion Gap 16 (5-15); BUN 11 mg/dL (4-19); BUN/Creat Ratio 12.2 RATIO (10-20); Calcium,Total 9.4 mg/dL (7.6-11.0); Carbon Dioxide 20.8 mmol/L (21.0-32.0); Chloride 99 mmol/L (98-108); Estimated Creatinine Clearance 82.66 ml/min (50-250); Globulin 3.7 g/dL (2.2-4.2); Glucose 89 mg/dL (70-99); Lipase 21 U/L (13-75); Potassium 3.8 mmol/L (3.3-5.1)
[2024-09-12 09:41] LABS: Mucous, Urine 0 SEEN /hpf (<or=2+)
[2024-09-12 09:47] LABS: Color, Urine Yellow (Yellow); Glucose, Dipstick Normal (Normal); Leukocyte Esterase-Dipstick 25 /ul (Negative); Nitrite-Dipstick Negative (Negative); Occult Blood-Urine 10 /ul (Negative); Protein-Dipstick 30 mg/dl (Negative); Specific Gravity, Urine 1.010 (1.002-1.030); Urine Bilirubin Dipstick Negative (Negative)
[2024-09-12 09:49] LABS: Ketone-Dipstick 150 mg/dl (Negative)
[2024-09-12 09:53] LABS: Red Blood Cells-Urine 0-5 SEEN /hpf (0-5); Squamous Epithelial Cells - UA 5-10 SEEN /hpf (5-10)
[2024-09-12 10:29] VITALS: BP 96/59; PULSE 71; RESP 16; O2SAT 96
[2024-09-12] MEDS: Ceftriaxone 2 GM in 0.9% Normal Saline (50mL MB+) 50 ML IV (11:47)
[2024-09-12 11:59] VITALS: PULSE 77; RESP 16; O2SAT 97
[2024-09-12 12:26] VITALS: BP 127/78; PULSE 77; RESP 16; TEMP 37; O2SAT 97
== END 2024-09-12 12:33 | disposition home or self-care (01) ==
PROVIDERS: Emergency Provider Emergency Medicine; Visit Provider Emergency Medicine
DX: N12 Tubulo-interstitial nephritis, not specified as acute or chronic (principal); F17.210 Nicotine dependence, cigarettes, uncomplicated
CPT/HCPCS: 74177; 80053; 81001; 83690; 84703; 85025; 96361; 96365; 99283; A4216; J0696

== ENCOUNTER → 2024-10-15 | Outpatient (CLI) | payer BC, SELFPAY ==
[2024-10-15 13:25] LABS: Vitamin B12 669 pg/mL (180-914); Vitamin D,25 Hydroxy 34.4 ng/mL (30-100)
== END | disposition home or self-care (01) ==
PROVIDERS: Referring Provider Nurse Practitioner Family; Visit Provider Nurse Practitioner Family
DX: E55.9 Vitamin D deficiency, unspecified (principal); R79.89 Other specified abnormal findings of blood chemistry
CPT/HCPCS: 36415; 82306; 82607